=== PATIENT | male | born 1955 | race Caucasian/White ===

== ENCOUNTER 2021-10-23 09:09 | Outpatient (CLI) | payer OTHER, SELFPAY ==
[2021-10-23 09:29] VITALS: BP 157/75; PULSE 76; RESP 18; TEMP 36.6; O2SAT 98; BMI 33.9
[2021-10-23 10:30] VITALS: BP 117/65; PULSE 78; RESP 18; TEMP 36.8; O2SAT 97
[2021-10-23 11:30] VITALS: BP 140/75; PULSE 74; RESP 18; TEMP 36.7; O2SAT 99
== END 2021-10-23 09:10 | disposition home or self-care (01) ==
LOC: OPS 09:10
PROVIDERS: PCP Nurse Practitioner Family; Visit Provider Nurse Practitioner
DX: U07.1 COVID-19 (principal)
CPT/HCPCS: 96365

== ENCOUNTER 2023-05-18 10:39 | Outpatient (CLI) | payer MEDICARE, SELFPAY ==
--- NOTE | 2023-05-18 10:48 | CT_ITS ---
WS: [id number] CT NECK TECHNIQUE: Contrast-enhanced CT of the neck with coronal and sagittal reformatted images. 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 DLP: 264.[address] scans at [facility] use at least one of these dose optimization techniques: automated e xposure control; mA and/or kV adjustment per patient size (includes targeted exams where dose is matc hed to clinical indication); or iterative reconstruction. FINDINGS:Enhancing soft tissue nodule anterior to the midline mandible likely corresponds to the clin ical findings. Soft tissue thickening extends posteriorly into the midline mandibular incisors. Recom mend correlation for odontogenic origin. Soft tissue nodule measures approximately 2.9 CM suspicious for neoplasm. Associated destruction or erosion of the midline alveolar ridge. Enhancement extends in to the genioglossus and sublingual space. Induration in the overlying midline mandibular soft tissues . PET/CT may be helpful for staging. Sclerosis in the inferior mandibular symphysis is indeterminant but may represent additional bony disease. Mastoid air cells are well aerated. Mild mucosal thickening ethmoid air cells. Normal posterior nasop harynx. Normal parapharyngeal fat. Normal palatine tonsils. Normal submandibular glands. Enlarged sub mandibular lymph nodes measuring up to 1.8 x 1.1 cm on the LEFT. Tongue base appears normal. No evidence of supraglottic or glottic mass. Normal subglottic airway. Th yroid gland appears normal. Lung apices are normal. Moderate bilateral carotid bulb calcification. De nse cavernous carotid calcification. Parotid glands are normal. A few slight prominent submental lymp h nodes. Lung apices are well aerated. Moderate spondylitic changes cervical spine. No other enlarged cervical chain lymph nodes. CT/CT neck w con* [id number] IMPRESSION: 1. Enlarged LEFT greater than RIGHT submandibular space lymph nodes measuring 1.8 x 1.1 x 1.8 cm. Similar-appearing enlarged RIGHT submandibular lymph node. 2. A few prominent submental lymph nodes measuring up to 12 mm. 3. Enhancing soft tissue nodule suspicious for neoplasm anterior to the midlin e mandible likely corresponds to the clinical findings. Soft tissue thickening extends posteriorly into the midline mandibular incisors with associated bony d estruction. Enhancement extends into the genioglossus and sublingual space. 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 4. Moderate carotid bulb calcification. 5. Cavernous carotid calcification. 6. No other suspicious findings.
[2023-05-18 11:30] LABS: Blood Urea Nitrogen 14 mg/dL (8-23); Glomerular Filtration Rate 96.7 mL/min (90-130)
[2023-05-18] MEDS: iohexol 350 mg/mL 500 mL Btl (per mL) IV (11:42)
[2023-05-18 12:41] LABS: Basophils # 0.1 10^3/uL (0.0-0.1); Basophils % 0.8 %; Eosinophils # 0.7 10^3/uL (0.0-0.8); Eosinophils % 6.2 %; Hematocrit 37.8 % (42.0-52.0); Hemoglobin 12.6 g/dL (11.7-16.6); Lymphocytes # 1.7 10^3/uL (0.8-4.8); Lymphocytes % 15.1 %; Mean Corpuscular HGB Conc 33.3 g/dL (30.0-36.0); Mean Corpuscular Hemoglobin 27.9 pg (28.0-34.0); Mean Corpuscular Volume 83.6 fl (80-94); Mean Platelet Volume 9.6 fL (7.4-10.4); Monocytes % 8.3 %; Neutrophils # 7.87 10^3/uL (1.8-7.7); Neutrophils % 69.2 %; Nucleated Red Blood Cells % 0 %; Platelet Count 261 10^3/cmm (130-400); Red Blood Count 4.52 10^6/uL (4.1-5.3); Red Cell Distribution Width 13.1 % (12.1-15.1); White Blood Count 11.4 10^3/uL (4.0-10.0)
[2023-05-18 12:42] LABS: Add Urine Microscopic? NO
[2023-05-18 12:52] LABS: Bilirubin Urine Neg (Negative); Blood Urine Neg (Negative); Glucose Urine UA 4+ (Normal); Ketones Urine 1+ (Negative); Leukocyte Esterase Urine Negative (Negative); Nitrate Urine Negative (Negative); Protein Urine Neg (Negative); Urine Appearance Clear (CLEAR); Urine Color Yellow (Yellow); Urobilinogen Urine Norm (Negative); pH Urine 5 (5-7)
[2023-05-18 12:59] LABS: Add Urine Culture? No; RBC Urine 0-4 /hpf (0-2); Squamous Epithelial Cell Urine 0-4 /hpf (0-5); WBC Urine 0-4 /hpf (0-5)
[2023-05-18 13:17] LABS: Alanine Aminotransferase 12 U/L (0-41); Albumin Level 3.8 g/dL (3.5-5.2); Alkaline Phosphatase 82 U/L (40-130); Anion Gap 15.2 (5-19); Aspartate Amino Transferase 12 U/L (0-40); Blood Urea Nitrogen 13 mg/dL (8-23); Calcium 8.6 mg/dL (8.5-10.5); Carbon Dioxide 25 mmol/L (22-29); Chloride 98 mmol/L (98-107); Globulin 2.4 g/dL (1.3-4.6); Glomerular Filtration Rate 96.7 mL/min (90-130); Glucose 145 mg/dL (65-115); Osmolality Calculated 281 mOsm/kg (285-295); Potassium 4.2 mmol/L (3.5-5.1); Sodium 134 mmol/L (136-145); Total Bilirubin 0.4 mg/dL (0.15-1.2); Total Protein 6.2 g/dL (6.6-8.7)
[2023-05-18 13:34] LABS: INR 1.08 (0.8-1.2)
== END 2023-05-18 10:40 | disposition home or self-care (01) ==
PROVIDERS: PCP Nurse Practitioner Family; Visit Provider Specialist
DX: D37.09 Neoplasm of uncertain behavior of other specified sites of the oral cavity (principal); R59.0 Localized enlarged lymph nodes; M27.9 Disease of jaws, unspecified; Z01.89 Encounter for other specified special examinations
CPT/HCPCS: 36415; 70491; 80053; 81001; 82565; 84520; 85025; 85610; Q9967

== ENCOUNTER 2023-05-19 11:22 | Outpatient (CLI) | payer MEDICARE, SELFPAY ==
--- NOTE | 2023-05-19 11:43 | MRR_ITS ---
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 Contrast material: MULTIHANCE; Contrast volume: 20 ml; Contrast route: INTRAVENOUS (IV); COMPARISON: CT neck w con* [id number] 05/18/2023 11:31 AM FINDINGS: Paranasal sinuses: No fluid levels. Orbital cavities: Orbits are normal. Globes are unremarkable. Nasopharynx: Pharynx: Unremarkable. Larynx: Visualized larynx is unremarkable. Salivary glands: See Bones/joints finding. Lymph nodes: There are prominent upper cervical chain lymph nodes again present. Left level 1 submandibular node 1.2 cm short axis on postcontrast image 12 unchanged. Subcentimeter right level 1 lymph node measuring 8 mm short axis on postcontrast image 11. Subcentimeter bilateral level 2 nodes. Soft tissues: See Bones/joints finding. Bones/joints: There is an enhancing soft tissue mass anterior to the midline mandible similar to the comparison CT scan. The mass measures 3.6 cm AP and a craniocaudal dimension of approximately 3.6 cm. The transverse dimension is difficult to accurately define given inflammation of the adjacent gingiva but is approximally 4 cm. Osseous erosion of the mandibular symphysis is again present for example on postcontrast image number 8. The tumor extends through the mandible and is minimally present in the sublingual space anterior to the tongue similar to the comparison CT scan. The tumor appears to extend to the lower lip in its superior aspect which is unchanged. The tumor does not extend to the submandibular space. MR/MR orbit face neck wo/w* [id number] IMPRESSION: Enhancing soft tissue mass anterior to the mandible involving the lower lip is again present consistent with history of malignancy. This has osseous erosion through the mandibular symphysis with extension to the sublingual space again present. Inflammatory changes in the adjacent mandibular buccal gingiva are present making the lateral tumor margins difficult to define radiologically. There is mildly prominent left level 1 adenopathy again present suspicious for possible metastasis. Follow-up with a PET scan would be helpful for further tumor delineation.
--- NOTE | 2023-05-19 12:11 | XR_ITS ---
WS: [id number] EXAMINATION: XR chest 2V* [id number] REASON FOR EXAM: PREPROCEDURAL CARDIOVASCULAR EXAMINATION COMPARISON: None available. ORDER DATE: 05/19/2023 12:15 PM FINDINGS: The lungs are clear of infiltrate. The cardiac and mediastinal outlines are unremarkable. There ar e no significant pleural effusions . No significant abnormalities are noted in the spine or remainder of the bony thorax. XR/XR chest 2V* [id number] IMPRESSION: NO ACUTE PULMONARY CHANGE.
== END 2023-05-19 11:23 | disposition home or self-care (01) ==
PROVIDERS: PCP Nurse Practitioner Family; Visit Provider Specialist
DX: D37.09 Neoplasm of uncertain behavior of other specified sites of the oral cavity (principal); M85.88 Other specified disorders of bone density and structure, other site; R59.0 Localized enlarged lymph nodes; Z01.810 Encounter for preprocedural cardiovascular examination
CPT/HCPCS: 70543; 71046; 93005; A9577

== ENCOUNTER → 2023-06-18 08:31 | Outpatient (BNVA) | payer MEDICARE, SELFPAY | PROVIDERS: PCP Nurse Practitioner Family; Visit Provider Otolaryngology | DX: K13.70 Unspecified lesions of oral mucosa (principal); L98.9 Disorder of the skin and subcutaneous tissue, unspecified; R59.0 Localized enlarged lymph nodes; Z68.36 Body mass index [BMI] 36.0-36.9, adult | CPT/HCPCS: 99205 ==

== ENCOUNTER 2023-06-22 10:26 | Day surgery (SDC) | payer MEDICARE, SELFPAY ==
[2023-06-21 09:01] VITALS: BMI 36.6
[2023-06-22] VITALS (11 sets, daily range): BP systolic 136–173; BP diastolic 70–86; PULSE 75–85; RESP 12–20; TEMP 36.8–36.9; O2SAT 94–98
[2023-06-22] MEDS: sodium chloride 0.9% 1,000 ML 30 ML IV (11:39)
--- NOTE | 2023-06-22 11:51 | W.PM.OPSUD ---
Surgery/Procedure H&P Update DATE OF PROCEDURE: June 22, 2023 DATE H&P PERFORMED: 06/18/23 H&P UPDATE INFORMATION: I have reviewed H&P completed within last 30 days, I have examined patient prior to procedure and No changes to prior documentation CHANGES TO PREVIOUS DOCUMENTATION: no changes PREOP DIAGNOSIS: Exophytic intraoral and chin lesions PRIMARY INDICATION FOR PROCEDURE: Exophytic intraoral and external chin lesions for biopsy PLANNED PROCEDURE: Operation Date: 06/22/23 12:10 Proposed Procedures p [id number] - Direct laryngoscopy with biopsy of intraoral and external skin lesions L98.9,K13.70(Not Applicable) - Lukas Ames MD
--- NOTE | 2023-06-22 11:53 | ANES.PREANE2 ---
Pre-Anesthetic Assessment Height/Weight: Height 1.83 m Weight 122.47 kg Temp Pulse Resp BP Pulse Ox O2 Del Method 98.5 F 75 16 144/77 98 Room Air 06/22/23 11:13 06/22/23 11:13 06/22/23 11:13 06/22/23 11:13 06/22/23 11:13 06/22/23 11:34 Preop Diagnosis: Exophytic intraoral and chin lesions Operation Date: 06/22/23 12:10 Proposed Procedures p [id number] - Direct laryngoscopy with biopsy of intraoral and external skin lesions L98.9,K13.70(Not Applicable) - Lukas Ames MD Familial anesthetic complications: None Was Beta Hemant taken within 24 hours: N/A Was Clonidine taken within 24 hours: N/A Last intake: Intake Last Liquid Date 06/21/23 Last Liquid Time 22:00 Last Solid Date 06/21/23 Last Solid Time 19:00 Social Tobacco (chews) and No alcohol Exam alert, oriented x 3, clear to auscultation bilaterally and regular rate & rhythm Airway Mallampati: Class III Dentition: full CV/HEM Hypertension Metabolic Diabetes Mellitus and Morbid Obesity Anesthetic Plan ASA status: 3 Anesthesia: General Risk of > 500 ml blood loss (7ml/kg in children): No Medications/Allergies Home Medications Medication Instructions Recorded Confirmed Last Taken Type glyburide 5 mg tablet 5 mg PO BID 11/25/20 06/22/23 06/14/23 History lisinopril 20 mg tablet 20 mg PO DAILY 11/25/20 06/21/23 06/21/23 History metformin 1,000 mg tablet 1,000 mg PO BID 11/25/20 06/21/23 06/21/23 History semaglutide 0.25 mg or 0.5 mg (2 mg SUBCUT 11/25/20 06/18/23 06/21/23 History mg/1.5 mL) subcutaneous pen injector aspirin 81 mg capsule 81 mg PO DAILY 10/23/21 06/21/23 06/18/23 History insulin NPH isoph U-100 human 100 40 unit SUBCUT DAILY 06/22/23 06/22/23 06/21/23 18:00 History unit/mL subcutaneous suspension (Novolin N NPH U-100 Insulin isophane) Allergies Allergy/AdvReac Type Severity Reaction Status Date / Time amoxicillin Allergy ADR-Itching Verified 06/22/23 11:02 Current Medications Generic Name Dose Route Start Last Admin Trade Name Flaco PRN Reason Stop Dose Admin Sodium Chloride 1,000 mls @ 30 mls/hr 06/22/23 11:00 06/22/23 11:39 Sodium Chloride 0.9% IV 06/23/23 10:59 30 mls/hr .Q24H BRIANA Administration PFSH Anesthesia Medical History Hypertension Type 2 diabetes mellitus Family History Father Cancer lung cancer Mother CAD (coronary artery disease) Social History Smoking and tobacco status: smoker, details unknown smokeless tobacco Smokeless tobacco user: chewing tobacco Data Anesthesia Cardiac Studies: No Data to Display
[2023-06-22] MEDS: ceFAZolin 3,000 MG in sodium chloride 0.9% (100 ml) 100 ML 200 MG IV (12:00)
[2023-06-22] MEDS: neomycin-poly-bacitracin oint 28 gm 1 APPLIC TOPICAL (12:56)
[2023-06-22] MEDS: lidocaine-epi 2% 1.7mL Cartridge (OR Only) 10 ML XX (12:57)
[2023-06-22] MEDS: EPINEPHrine 1 mg/mL INJ XX (12:59)
--- NOTE | 2023-06-22 12:59 | PM.OP ---
Operative Report Date of procedure: June 22, 2023 Pre-op diagnosis: Preop Diagnosis Exophytic intraoral and chin lesions Post-op diagnosis: Same Post-op findings: Erosive ulcerative and exophytic lesions intraorally in the gingival buccal sulcus from side to side and incorporating the gingival labial sulcus anteriorly. Lesion anteriorly invaded through from the mucous membrane through to the skin causing 3 islands of exophytic growth with necrotic centers. Procedure done: Direct laryngoscopy and multiple intraoral and external chin biopsies. External chin biopsy was closed with suture. Implants: No implants Specimens removed/disposition: Biopsies multiple taken from left gingival buccal sulcus as well as right gingival buccal sulcus and from the central gingival labial sulcus. In addition an excisional biopsy of one of the 3 exophytic islands of growth externally on the chin skin. Pathology: Same Surgeon: Lukas Ames MD Anesthesia: General and Local Estimated blood loss: 20 mL Complications: No complications encountered Findings: Patient has had ulcerative lesions in the gingival labial and gingival buccal sulci bilaterally with exophytic external chin skin growth and 3 separate islands. This has been progressive over several months. Brief History: 68-year-old male patient with progressive ulcerative yet exophytic lesions intraorally in the vestibule region incorporating the left gingival buccal sulcus the central gingival labial sulcus and all of her to the right gingival buccal sulcus. This is adherent to the mandible and growing out into the cheek and lip tissue. Anteriorly it has grown through and through with 3 large islands greater than a centimeter in diameter on the external chin. Patient is being brought to the operating room at this time to undergo multiple biopsies of these lesions for diagnosis and mapping. The procedures risks and complications were explained in detail to the patient and his in the office setting. These risks included bleeding infection numbness scarring swelling bruising recurrence need for additional treatment and the fact that this is a diagnostic procedure and not meant to be a treatment in any way. Anesthetic risks were also discussed. With these things understood informed consent was granted and witnessed. Procedure: Description of procedure: The patient was placed on the operating table in the supine position. Adequate general endotracheal tube anesthesia was obtained. A timeout was accomplished identifying the patient date of plan procedure allergies fire risk and medications given. With all in agreement the procedure continued. The patient did receive Ancef IV for prophylaxis. Direct laryngoscopy was performed with a tooth guard placed on the upper dentition. No other lesions were identified in the posterior oropharynx hypopharynx or laryngeal area. No biopsies were taken during that part of the procedure. Patient with local utilizing a total of 3.4 mL of 2% Xylocaine with 1-100,000 epinephrine was used to infiltrate the areas of the intended intraoral and external chin biopsies. Attention was then turned to the biopsies of the oral lesions. A large cup forcep was used to take multiple biopsies of the gingival buccal mucous membrane and deep lesions. Then right-sided biopsies were taken as well. Then the biopsies from the gingival labial sulcus were taken. Some of these extended into the deep tissue of the chin. After those were taken care of and pledgets of 1-1000 epinephrine were placed to control bleeding attention was turned to the external chin. The left most island of tissue was excised nearly flush with the chin surrounding skin. Hemostasis was attained with cottonoid with epinephrine and then Coblator on coagulation mode and then bipolar and then closing edges together with 2-0 Prolene. All the previously placed cottonoids with 1-1000 epinephrine were removed. The area intraorally was irrigated with saline and suctioned clean. No active bleeding was seen. Then the external lesion that was closed was cleansed and with no active bleeding evident Neosporin ointment was applied. Drapes were removed and tape was removed from the eyes and the patient was returned to anesthesia for wake-up and extubation. The patient tolerated the procedure well had an estimated blood loss of 20 mL and arrived in recovery in stable condition.
--- NOTE | 2023-06-22 13:49 | ANE.PACU2 ---
Inpatient post-anesthesia follow up: Airway intact: Yes Vital signs: Temperature 98.2 F Pulse Rate 83 Respiratory Rate 17 Blood Pressure 166/86 Pulse Oximetry 94 Oxygen Delivery Me thod Room Air Oxygen Flow Rate Fraction of Inspir ed Oxygen Hydration adequate: Yes Nausea and vomiting: No Pain level: 1 Mental status: Baseline
[2023-06-22] MEDS: oxyCODONE-APAP 10-325 mg Tablet 1 TAB PO (13:57)
[2023-06-23 08:06] LABS: Glucose Point of Care 244 mg/dL (70-110)
== END 2023-06-22 14:19 | disposition home or self-care (01) ==
PROVIDERS: PCP Nurse Practitioner Family; Visit Provider Otolaryngology
PROC: 0CJS8ZZ Inspection of Larynx, Via Natural or Artificial Opening Endoscopic (ICD-10-PCS; CPT 11640; principal; 2023-06-22 12:00)
DX: C06.89 Malignant neoplasm of overlapping sites of other parts of mouth (principal); F17.220 Nicotine dependence, chewing tobacco, uncomplicated; I10 Essential (primary) hypertension; E11.9 Type 2 diabetes mellitus without complications; E66.01 Morbid (severe) obesity due to excess calories; Z68.36 Body mass index [BMI] 36.0-36.9, adult; Z79.84 Long term (current) use of oral hypoglycemic drugs
CPT/HCPCS: 11640; 31535; 40810; 36416; 82962; 88304; 88305; 88342; J0171; J0330; J0690; J1100; J2405; J2704; J3010; J3490; J7030

== ENCOUNTER → 2023-06-30 14:31 | Outpatient (BNVA) | payer MEDICARE, SELFPAY | PROVIDERS: PCP Nurse Practitioner Family; Visit Provider Otolaryngology | DX: C06.9 Malignant neoplasm of mouth, unspecified (principal); L98.9 Disorder of the skin and subcutaneous tissue, unspecified; R59.0 Localized enlarged lymph nodes | CPT/HCPCS: 99024 ==

== ENCOUNTER 2024-03-01 11:51 | Inpatient (IN) | payer MEDICARE, SELFPAY ==
[2024-03-01] VITALS (18 sets, daily range): BP systolic 125–161; BP diastolic 55–78; PULSE 74–86; RESP 16–31; TEMP 36.7–37.3; O2SAT 95–99; BMI 32.9
--- NOTE | 2024-03-01 12:44 | CT_ITS ---
WS: [id number] CT HEAD NONCONTRAST HISTORY: weakness TECHNIQUE: Contiguous axial imaging performed through the brain in 2.5 mm imaging. Bone and soft tiss ue windows. Sagittal and coronal reformats reviewed. All CT scans at [facility] use at least one of these dose optimization techniques: automated exposure control; mA and/or kV adjustment per pa tient size (includes targeted exams where dose is matched to clinical indication); or iterative recon struction. DLP: 1251.15 mGy.cm COMPARISON: None available. No acute intracranial hemorrhage, midline shift or mass effect. No atrophy or prior infarcts or herniation. Ventricles: Normal size with no hydrocephalus. Paranasal sinuses: As visualized are clear. Mastoid air cells: Well pneumatized. Calvarium and scalp: Skull is intact with no soft tissue edema or swelling. Heavy calcification in the distal vertebral arteries and the intracranial carotid arteries. CT/CT head wo con* [id number] IMPRESSION: 1. No acute intracranial hemorrhage or edema. 2. No prior infarct. 3. Advanced calcification in the distal vertebral and carotid arteries.
--- NOTE | 2024-03-01 12:44 | XRR_ITS ---
PROCEDURE INFORMATION: Exam: XR Chest Exam date and time: 03/01/2024 12:55 PM Age: 69 years old Clinical indication: Patient HX: C/O weakness TECHNIQUE: Imaging protocol: Radiologic exam of the chest. Views: 1 view. COMPARISON: CR XR chest 2V* [id number] 05/19/2023 12:14 PM FINDINGS: Lungs: Unremarkable. No consolidation. Pleural spaces: Unremarkable. No pleural effusion. No pneumothorax. Heart/Mediastinum: Unremarkable. No cardiomegaly. Bones/joints: Mild scoliosis with mild and moderate multilevel spondylosis. Partial thoracic spine ankylosis. XR/XR chest 1V portable [id number] IMPRESSION: No acute disease.
--- NOTE | 2024-03-01 12:45 | CT_ITS ---
WS: [id number] CT NECK WITH CONTRAST HISTORY: jaw pain TECHNIQUE: Contiguous 2 mm axial images are performed through the neck with intravenous contrast. Sag ittal and coronal reformats are also submitted. All CT scans at [facility] use at least one o f these dose optimization techniques: automated exposure control; mA and/or kV adjustment per patient size (includes targeted exams where dose is matched to clinical indication); or iterative reconstruc tion. CONTRAST: CONTRAST: Omnipaque 350; 100 mL IV. DLP: 1251.15 mGy.cm COMPARISON: 07/22/2023 Reidentified is a lobulated soft tissue mass with mild enhancement centered over the mental symphysis with extension to the mandible and surrounding several of the teeth in the mandible. There is simila r to prior studies. There is no focal enhancing mass and no obvious progression since the prior study of 07/22/2023. There are small level 1 and level 2 lymph nodes which have decreased in size since 06/26. These lymph nodes were positive on the PET/CT. There are no enlarging lymph node groups. Tongue base is negative. No laryngeal mass or obstruction. No new or enlarging cervical chain lymph n odes. Lung apices are clear. Negative thyroid. CT/CT neck w con* [id number] IMPRESSION: Reidentified is a soft tissue mass centered within the mandibular symphysis wit h extension to encase several of the incisors. Very similar in appearance to th e prior CT of 07/22/2023. No obvious progression. Level 2 and level 1 lymph nodes have decreased in size since the prior PET/CT o f 07/22/2023. There are no new or enlarging lymph nodes. No compromise of the ai rway.
--- NOTE | 2024-03-01 12:46 | ED_ITS ---
HPI - Weakness 2 General: Chief complaint: Weakness Stated complaint: weakness Time Seen by Provider: 03/01/24 12:39 Source: patient Mode of arrival: ambulatory Limitations: no limitations History of Present Illness: 69-year-old male states over the last 10 days he has been having increased fatigue and weakness he said he had subjective fevers along with chills had some vomiting as well. He denies any pain anywhere denies any headache he states that he had seen his PCP on Wednesday started on antibiotics but did not have any definite source of infection he states that he is gradually gotten weaker and is having a hard time getting out of bed due to his weakness Associated symptoms: Reports chills; Denies chest pain, dysuria, headache(s), nausea or vomiting Review of Systems 2 Const: Reports: chills, fatigue and malaise; Denies: body aches or change in appetite Eyes: Denies: blurry vision or eye discomfort ENMT: Denies: throat pain or dental pain Card: Denies: chest pain Resp: Denies: dyspnea GI: Denies: abdominal pain, nausea, vomiting or diarrhea : Denies: dysuria Musc: Denies: neck pain or back pain Skin/Breast: Denies: rash Neuro: Denies: headache(s) PFSH ED 2 PFSH: Medical History Type 2 diabetes mellitus Hypertension Family History Father Cancer lung cancer Mother CAD (coronary artery disease) Social History Smoking and tobacco/nicotine status: tobacco/nicotine user, details unknown smokeless tobacco Smokeless tobacco user: chewing tobacco Physical Exam 2 Const: COMMON NORMALS: no acute distress, patient oriented x3 and healthy appearing HENMT: COMMON NORMALS: normocephalic and atraumatic HEAD & SCALP: n ormocephalic and atraumatic Eye: COMMON NORMALS: Equal, round and reactive pupils present and EOMs intact bilaterally PUPIL: Yes Equal, round and reactive pupils present Neck/C-Spine: COMMON NORMALS: full ROM and supple Chest: COMMONS NORMALS: normal inspection of the chest and normal palpation of entire chest wall Resp: COMMON NORMALS: normal respiratory effort, No retractions, No use of accessory muscles and clear to auscultation bilaterally AUSCULTATION: clear to auscultation bilaterally Cardio: COMMON NORMALS: regular rate, regular rhythm and No murmurs present (Cardio) RATE: regular rate RHYTHM: regular rhythm GI: COMMON NORMALS: Normal to inspection, nondistended, normoactive bowel sounds present, Soft to palpation, non-tender and no masses PALPATION: Yes Soft to palpation Extremity: COMMON NORMALS: normal to inspection and full ROM Neuro: COMMON NORMALS: patient oriented x3, moves all extremities and no focal motor deficits Psych: COMMON NORMALS: mental status grossly normal, Normal thought process present and cooperative THOUGHT PROCESS: Normal thought process present Skin: COMMON NORMALS: no rashes or lesions noted and no wounds GENERAL SKIN EXAM: no rashes or lesions noted Course 2 Vital Signs: Vital signs: Vital Signs Temperature 98.1 F 03/01/24 11:59 Pulse Rate 79 03/01/24 14:59 Respiratory Rate 18 03/01/24 11:59 Blood Pressure 144/56 03/01/24 14:59 Pulse Oximetry 98 03/01/24 14:59 Oxygen Delivery Me thod Room Air 03/01/24 14:59 MDM - Weakness Medical Decision Making Patient presents here with generalized weakness he does have a leukocytosis hyponatremia here no definite source for his leukocytosis here will start antibiotics and get blood cultures lactates normal vitals here been normal spoke to the hospitalist will admit at this time. Medical Records I reviewed the patient's medical records. Lab Data I reviewed the patient's lab results. 03/01/24 13:10 03/01/24 13:10 Radiology Impressions Chest X-Ray 03/01/24 12:44 IMPRESSION: No acute disease. Head CT 03/01/24 12:44 IMPRESSION: 1. No acute intracranial hemorrhage or edema. 2. No prior infarct. 3. Advanced calcification in the distal vertebral and carotid arteries. Neck CT 03/01/24 12:45 IMPRESSION: Reidentified is a soft tissue mass centered within the mandibular symphysis with extension to encase several of the incisors. Very similar in appearance to the prior CT of 07/22/2023. No obvious progression. Level 2 and level 1 lymph nodes have decreased in size since the prior PET/CT of 07/22/2023. There are no new or enlarging lymph nodes. No compromise of the airway. Laboratory Results WBC 28.07 10^3/uL (3.29-11.43) H 03/01/24 13:10 RBC 4.27 10^6/uL (3.85-5.65) 03/01/24 13:10 Hgb 12.20 g/dL (11.27-16.99) 03/01/24 13:10 Hct 36.4 % (37-53) L 03/01/24 13:10 MCV 85.2 fl (82-101) 03/01/24 13:10 MCH 28.6 pg (27-33) 03/01/24 13:10 MCHC 33.5 g/dL (30-55) 03/01/24 13:10 RDW 13.1 % (12.1-15.1) 03/01/24 13:10 Plt Count 454 10^3/cmm (157-399) H 03/01/24 13:10 MPV 9.3 fL (7.4-10.4) 03/01/24 13:10 Neut % (Auto) 84.6 % 03/01/24 13:10 Lymph % (Auto) 3.7 % 03/01/24 13:10 [place] % (Auto) 9.5 % 03/01/24 13:10 Eos % (Auto) 0.0 % 03/01/24 13:10 Baso % (Auto) 0.3 % 03/01/24 13:10 Neut # (Auto) 23.72 10^3/uL (1.8-7.7) H 03/01/24 13:10 Lymph # (Auto) 1.1 10^3/uL (0.8-4.8) 03/01/24 13:10 [place] # (Auto) 2.7 10^3/uL (0.2-0.9) H 03/01/24 13:10 Eos # (Auto) 0.0 10^3/uL (0.0-0.8) 03/01/24 13:10 Baso # (Auto) 0.1 10^3/uL (0.0-0.1) 03/01/24 13:10 Nucleated RBC % (auto) 0 % 03/01/24 13:10 Nucleated RBCs # 0.0 /100WBC 03/01/24 13:10 PT 17.60 SECONDS (12.1-14.9) H 03/01/24 13:10 INR 1.40 (0.8-1.2) H 03/01/24 13:10 Sodium 126 mmol/L (136-145) L 03/01/24 13:10 Potassium 4.2 mmol/L (3.5-5.1) 03/01/24 13:10 Chloride 87 mmol/L (98-107) L 03/01/24 13:10 Carbon Dioxide 16 mmol/L (22-29) L 03/01/24 13:10 Anion Gap 27.2 (5-19) H 03/01/24 13:10 BUN 30 mg/dL (8-23) H 03/01/24 13:10 Creatinine 1.0 mg/dL (0.7-1.2) 03/01/24 13:10 GFR Calculation 74.5 mL/min (90-130) L 03/01/24 13:10 Glucose 397 mg/dL (65-115) H 03/01/24 13:10 POC Glucose 371 mg/dL (70-110) H 03/01/24 13:22 Calculated Osmolality 285 mOsm/kg (285-295) 03/01/24 13:10 Lactic Acid 1.6 mmol/L (0.5-2.2) 03/01/24 13:10 Calcium 9.1 mg/dL (8.5-10.5) 03/01/24 13:10 Magnesium 2.3 mg/dL (1.7-2.3) 03/01/24 13:10 Total Bilirubin 0.7 mg/dL (0.15-1.2) 03/01/24 13:10 AST 13 U/L (0-40) 03/01/24 13:10 ALT 9 U/L (0-41) 03/01/24 13:10 Alkaline Phosphatase 188 U/L (40-130) H 03/01/24 13:10 Total Protein 7.6 g/dL (6.6-8.7) 03/01/24 13:10 Albumin 3.1 g/dL (3.5-5.2) L 03/01/24 13:10 Globulin 4.5 g/dL (1.3-4.6) 03/01/24 13:10 Lipase 7 U/L (13-60) L 03/01/24 13:10 TSH 3.40 uIU/mL (0.27-4.20) 03/01/24 13:10 Urine Color Yellow (Yellow) 03/01/24 13:56 Urine Appearance Clear (CLEAR) 03/01/24 13:56 Urine pH 5 (5-7) 03/01/24 13:56 Ur Specific [place] 1.015 (1.005-1.030) 03/01/24 13:56 Urine Protein Neg (Negative) 03/01/24 13:56 Urine Glucose (UA) 4+ (Normal) H 03/01/24 13:56 Urine Ketones 2+ (Negative) H 03/01/24 13:56 Urine Blood Neg (Negative) 03/01/24 13:56 Urine Nitrate Negative (Negative) 03/01/24 13:56 Urine Bilirubin Neg (Negative) 03/01/24 13:56 Urine Urobilinogen Neg mg/dL (Negative) 03/01/24 13:56 Ur Leukocyte Esterase Negative (Negative) 03/01/24 13:56 All radiology interpretation(s) finalized by discharge EKG Data EKG 1: I personally reviewed and interpreted this EKG as follows: EKG interpretation date: 03/01/24 EKG interpretation time: 13:12 Interpretation: nsr hr [address] or t wave abnormalities qrs 100 qtc 421 Discharge Plan Discharge Patient Disposition: Admitted As Inpatient Clinical Impression: Hyponatremia, Leukocytosis, Weakness Condition: Stable Prescriptions: No Action glyburide 5 mg tablet 5 mg PO BID metformin 1,000 mg tablet 500 mg PO BID lisinopril 20 mg tablet 20 mg PO DAILY aspirin 81 mg Capsule 81 mg PO DAILY Hold Instructions: Resume on 06/25/23. amoxicillin-pot clavulanate 875-125 mg tablet 1 tab PO BID Novolin N NPH U-100 Insulin 100 unit/mL suspension 45 unit SUBCUT DAILY Referrals: Shannon Calle FNP [Primary Care Provider] - Coding Level of Care Code ED Health Care Attorney for Chg Sherita
--- NOTE | 2024-03-01 13:08 | PC.PHAR ---
PT STATES LAST TOOK MEDICATIONS WEDNESDAY MORNING-UNABLE TO KEEP ANYTHING DOWN SINCE THAT TIME.
--- NOTE | 2024-03-01 13:12 | ECG_ITS ---
[facility] Test Date: 2024-03-01 Pat Name: Santo Smith Department: Room: Gender: Male [employer] Attendant: : 1955 Requested By: Donnell Saab Order Number: [id number] Twan MD: Lupillo Erickson M.D. Measurements Intervals [place] Rate: 77 P: 42 WV: 168 QRS: 5 QRSD: 100 T: 62 QT: 389 QTc: 442 Interpretive Statements SINUS RHYTHM NONSPECIFIC ST & T-WAVE ABNORMALITY Compared to ECG 05/19/2023 14:11:15 T-wave abnormality now present Electronically Signed On 03-01-2024 20:02:29 CDT by Lupillo Erickson M.D. [id number]
[2024-03-01 13:27] LABS: Basophils # 0.1 10^3/uL (0.0-0.1); Basophils % 0.3 %; Hematocrit 36.4 % (37-53); Lymphocytes # 1.1 10^3/uL (0.8-4.8); Lymphocytes % 3.7 %; Mean Corpuscular HGB Conc 33.5 g/dL (30-55); Mean Corpuscular Hemoglobin 28.6 pg (27-33); Mean Corpuscular Volume 85.2 fl (82-101); Mean Platelet Volume 9.3 fL (7.4-10.4); Monocytes # 2.7 10^3/uL (0.2-0.9); Monocytes % 9.5 %; Neutrophils # 23.72 10^3/uL (1.8-7.7); Neutrophils % 84.6 %; Nucleated Red Blood Cells % 0 %; Platelet Count 454 10^3/cmm (157-399); Red Blood Count 4.27 10^6/uL (3.85-5.65); Red Cell Distribution Width 13.1 % (12.1-15.1); White Blood Count 28.07 10^3/uL (3.29-11.43)
--- NOTE | 2024-03-01 13:31 | CT_ITS ---
WS: [id number] CT ABDOMEN AND PELVIS WITH CONTRAST HISTORY: vomiting TECHNIQUE: Imaging performed of the abdomen and pelvis with IV contrast. Single phase imaging of the abdomen. Coronal and sagittal reformats are submitted. All CT scans at [facility] use at [address] one of these dose optimization techniques: automated exposure control; mA and/or kV adjustment per patient size (includes targeted exams where dose is matched to clinical indication); or iterative re construction. IV CONTRAST: Omnipaque 350; 100 mL IV. Oral contrast: No DLP: 2252.56 mGy.cm COMPARISON: 07/22/2023 Lower thorax: Gynecomastia. Mild soft tissue edema and anasarca. Heart is normal size. No hiatal sid ia. Liver/biliary system: Normal size with no intrahepatic dilatation. Gallbladder: Normal. No gallstones or wall thickening. No pericholecystic fluid. Pancreas: Mild diffuse pancreatic atrophy. There is a solid soft tissue mildly enhancing mass insepar able from the distal pancreas extending inferiorly and posteriorly. Mass measures 3.7 x 3.2 cm. Mass is inseparable from the tail the pancreas. There is a fat plane between the kidney and this mass. Mas s was slightly avid on the PET CT image but very similar attenuation as the adjacent spleen. This mas s was present on 07/22/2023 and not increased in size. Spleen: Normal size spleen. No mass or infarct. Adrenal glands: Normal. Right kidney: No solid mass. Several small cortical cysts. No obstruction. Mild perinephric stranding . Left kidney: No obstruction. Cortical cyst. No solid mass. No perinephric stranding. Aorta: Mild atherosclerosis with no aneurysm. Lymphadenopathy: None. Free fluid: None. GI tract: Nondistended stomach. No small bowel obstruction. Diffuse constipation. Normal appendix. Abdominal wall: Unremarkable abdominal wall. No hernia. Pelvis: Enlarged RIGHT inguinal lymph nodes measuring up to 2.0 cm. There are several hyperemic enlar ged lymph nodes. Additional RIGHT inguinal lymph node 2.3 cm. Negative urinary bladder. Bones: Unremarkable. CT/CT abdomen pelvis w con* [id number] IMPRESSION: 1. Bilateral perinephric stranding. There is no renal obstruction or abscess. Correlate for pyelonephritis. 2. New RIGHT inguinal lymph nodes. These lymph nodes are enlarged and hyperemi c. New since the PET/CT of 07/22/2023. Suspicious for neoplastic versus reactive adenopathy. 3. No metastatic disease to the liver. 4. There is a soft tissue mass in the LEFT upper abdomen which is similar atte nuation and enhancement of the adjacent spleen. This may be a large splenule. T his is inseparable from the pancreas. No interval increase in size since 023. 5. Soft tissue anasarca. 6. Bilateral renal cysts. 7. Constipation. Notified Donnell Saab MD at 03/01/2024 3:34 PM.
[2024-03-01 13:46] LABS: Lactic Sepsis W/Reflex 1.6 mmol/L (0.5-2.2)
[2024-03-01 13:56] LABS: Alanine Aminotransferase 9 U/L (0-41); Albumin Level 3.1 g/dL (3.5-5.2); Alkaline Phosphatase 188 U/L (40-130); Anion Gap 27.2 (5-19); Aspartate Amino Transferase 13 U/L (0-40); Blood Urea Nitrogen 30 mg/dL (8-23); Calcium 9.1 mg/dL (8.5-10.5); Carbon Dioxide 16 mmol/L (22-29); Chloride 87 mmol/L (98-107); Creatinine Clr Calc Pharmacy 93.1959; Globulin 4.5 g/dL (1.3-4.6); Glomerular Filtration Rate 74.5 mL/min (90-130); Glucose 397 mg/dL (65-115); Lipase 7 U/L (13-60); Magnesium 2.3 mg/dL (1.7-2.3); Osmolality Calculated 285 mOsm/kg (285-295); Potassium 4.2 mmol/L (3.5-5.1); Sodium 126 mmol/L (136-145); Total Bilirubin 0.7 mg/dL (0.15-1.2); Total Protein 7.6 g/dL (6.6-8.7)
[2024-03-01 13:58] LABS: Glucose Point of Care 371 mg/dL (70-110)
[2024-03-01 13:59] LABS: Add Urine Microscopic? NO; Charge for UA Resulting for Rev
[2024-03-01 14:05] LABS: Bilirubin Urine Neg (Negative); Blood Urine Neg (Negative); Glucose Urine UA 4+ (Normal); Ketones Urine 2+ (Negative); Leukocyte Esterase Urine Negative (Negative); Nitrate Urine Negative (Negative); Protein Urine Neg (Negative); Specific Gravity, Urine 1.015 (1.005-1.030); Urine Appearance Clear (CLEAR); Urine Color Yellow (Yellow); Urobilinogen Urine Neg (Negative); pH Urine 5 (5-7)
[2024-03-01] MEDS: iohexol 350 mg/mL 500 mL Btl (per mL) IV ×2 (14:54→14:55)
[2024-03-01] MEDS: piperacillin-tazobactam 3.375 GM in sodium chloride 0.9% (plus) 50 ML IV (14:56)
[2024-03-01] MEDS: sodium chloride 0.9% 1,000 ML 999 ML IV ×2 (14:57→16:24)
[2024-03-01] MEDS: vancomycin 1,000 MG in sodium chloride 0.9% 250 ML 250 MG IV (15:40)
--- NOTE | 2024-03-01 16:04 | XRR_ITS ---
PROCEDURE INFORMATION: Exam: XR Right Foot Exam date and time: 03/01/2024 4:26 PM Age: 69 years old Clinical indication: Patient HX: Necrotic toes and ulcers; Foul smell; Increased fatigue and [id number]-[id number]; Additional info: Necrosis TECHNIQUE: Imaging protocol: Radiologic exam of the right foot. Views: 3 or more views. COMPARISON: CT angio abd aorta runof [id number] 07/22/2023 3:37 PM FINDINGS: Bones/joints: Mottled bones of the right 2nd toe could be osteomyelitis. Dorsal subluxation of all proximal phalanges. Moderate right inferior calcaneal spur and moderate right posterior calcaneal enthesophyte. Otherwise, unremarkable. Soft tissues: Gas in the soft tissues suggests soft tissue infection. Otherwise, unremarkable. Vasculature: Arterial calcification. XR/XR foot RT min 3V* [id number] IMPRESSION: 1. Possible osteomyelitis of the 2nd toe. Probable extensive soft tissue infection. Consider MRI to evaluate this further. 2. Additional details as above.
--- NOTE | 2024-03-01 16:07 | PC.NURSE ---
PATIENT CHANGED INTO GOWN AND TOOK BOOTS OFF WHEN I NOTICED A BLOODY RED AND YELLOW SATURATED PORTION ON HIS SOCK. REMOVED SOCK AND UPON ASSESSMENT, PATIENT HAS PINK, RED, AND BLACKENED FOOT WITH TWO BLACK TOES. PATIENT STATES THIS JUST HAPPENED TODAY . STATES THAT PATIENT HAS NOT TAKEN A SHOWER IN A WEEK AND A HALF SO SHE IS UNSURE WHEN THIS BEGAN. PATIENT IS UNSURE WHEN HIS FOOT BECAME INFECTED OR STARTED CHANGING COLORS.
--- NOTE | 2024-03-01 16:10 | CTR_ITS ---
PROCEDURE INFORMATION: Exam: CT Right Lower Extremity Without Contrast; Lower Leg Exam date and time: 03/01/2024 4:36 PM Age: 69 years old Clinical indication: Other: Necrotic foot TECHNIQUE: Imaging protocol: CT of the right lower extremity without contrast was performed. Exam focused on the lower leg. Radiation optimization: All CT scans at this facility use at least one of these dose optimization techniques: automated exposure control; mA and/or kV adjustment per patient size (includes targeted exams where dose is matched to clinical indication); or iterative reconstruction. COMPARISON: CT angio abd aorta runof [id number] 07/22/2023 3:37 PM RADIATION DOSE METRICS: Total DLP (mGy-cm): 385 FINDINGS: Bones/joints: Tibia and fibula are intact. There is chronic avulsive injury of the anterior aspect of the lateral malleolus at the syndesmotic attachment compatible with remote syndesmotic injury. Soft tissue air extends into the region of the 2nd toe metatarsophalangeal joint concerning for joint involvement. Motion degradation limits evaluation for subtle erosive change. There is intraosseous air within the proximal phalanx 2nd toe suggestive of gangrene. 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 Soft tissues: Soft tissue ulceration of the plantar aspect of the forefoot subjacent to the 2nd toe. Joint involvement would be difficult to exclude. No discrete fluid collection to suggest abscess. Soft tissue gas extends proximally to the volar aspect of the hindfoot/ankle. CT/CT lower leg RT wo con* [id number] IMPRESSION: 1. Soft tissue ulceration of the plantar aspect of the forefoot subjacent to the 2nd toe with gas-forming infection and intraosseous air within the proximal phalanx suggestive of gangrene/osteomyelitis. There is possible involvement of the 2nd metatarsophalangeal joint. MRI of the right foot is recommended.
[2024-03-01 16:50] LABS: Erythrocyte Sedimentation Rate 86 mm/hr (0-10)
--- NOTE | 2024-03-01 16:59 | W.ED.WEAKNES ---
HPI - Weakness General: Chief complaint: Weakness Stated complaint: weakness Time Seen by Provider: 03/01/24 12:39 Source: patient Mode of arrival: ambulatory Limitations: no limitations PFSH ED PFSH: Medical History Type 2 diabetes mellitus Hypertension Family History Father Cancer lung cancer Mother CAD (coronary artery disease) Social History Smoking and tobacco/nicotine status: tobacco/nicotine user, details unknown smokeless tobacco Smokeless tobacco user: chewing tobacco Course Vital Signs: Vital signs: Vital Signs Temperature 98.1 F 03/01/24 11:59 Pulse Rate 79 03/01/24 14:59 Respiratory Rate 18 03/01/24 11:59 Blood Pressure 144/56 03/01/24 14:59 Pulse Oximetry 98 03/01/24 14:59 Oxygen Delivery Me thod Room Air 03/01/24 14:59 MDM - Weakness Lab Data 03/01/24 13:10 03/01/24 13:10 Radiology Impressions Chest X-Ray 03/01/24 12:44 IMPRESSION: No acute disease. Head CT 03/01/24 12:44 IMPRESSION: 1. No acute intracranial hemorrhage or edema. 2. No prior infarct. 3. Advanced calcification in the distal vertebral and carotid arteries. Neck CT 03/01/24 12:45 IMPRESSION: Reidentified is a soft tissue mass centered within the mandibular symphysis with extension to encase several of the incisors. Very similar in appearance to the prior CT of 07/22/2023. No obvious progression. Level 2 and level 1 lymph nodes have decreased in size since the prior PET/CT of 07/22/2023. There are no new or enlarging lymph nodes. No compromise of the airway. Abdomen/Pelvis CT 03/01/24 13:31 IMPRESSION: 1. Bilateral perinephric stranding. There is no renal obstruction or abscess. Correlate for pyelonephritis. 2. New RIGHT inguinal lymph nodes. These lymph nodes are enlarged and hyperemic. New since the PET/CT of 07/22/2023. Suspicious for neoplastic versus reactive adenopathy. 3. No metastatic disease to the liver. 4. There is a soft tissue mass in the LEFT upper abdomen which is similar attenuation and enhancement of the adjacent spleen. This may be a large splenule. This is inseparable from the pancreas. No interval increase in size since 07/22/2023. 5. Soft tissue anasarca. 6. Bilateral renal cysts. 7. Constipation. Notified Donnell Saab MD at 03/01/2024 3:34 PM. Foot X-Ray 03/01/24 16:04 IMPRESSION: 1. Possible osteomyelitis of the 2nd toe. Probable extensive soft tissue infection. Consider MRI to evaluate this further. 2. Additional details as above. Laboratory Results WBC 28.07 10^3/uL (3.29-11.43) H 03/01/24 13:10 RBC 4.27 10^6/uL (3.85-5.65) 03/01/24 13:10 Hgb 12.20 g/dL (11.27-16.99) 03/01/24 13:10 Hct 36.4 % (37-53) L 03/01/24 13:10 MCV 85.2 fl (82-101) 03/01/24 13:10 MCH 28.6 pg (27-33) 03/01/24 13:10 MCHC 33.5 g/dL (30-55) 03/01/24 13:10 RDW 13.1 % (12.1-15.1) 03/01/24 13:10 Plt Count 454 10^3/cmm (157-399) H 03/01/24 13:10 MPV 9.3 fL (7.4-10.4) 03/01/24 13:10 Neut % (Auto) 84.6 % 03/01/24 13:10 Lymph % (Auto) 3.7 % 03/01/24 13:10 [place] % (Auto) 9.5 % 03/01/24 13:10 Eos % (Auto) 0.0 % 03/01/24 13:10 Baso % (Auto) 0.3 % 03/01/24 13:10 Neut # (Auto) 23.72 10^3/uL (1.8-7.7) H 03/01/24 13:10 Lymph # (Auto) 1.1 10^3/uL (0.8-4.8) 03/01/24 13:10 [place] # (Auto) 2.7 10^3/uL (0.2-0.9) H 03/01/24 13:10 Eos # (Auto) 0.0 10^3/uL (0.0-0.8) 03/01/24 13:10 Baso # (Auto) 0.1 10^3/uL (0.0-0.1) 03/01/24 13:10 Nucleated RBC % (auto) 0 % 03/01/24 13:10 Nucleated RBCs # 0.0 /100WBC 03/01/24 13:10 ESR 86 mm/hr (0-10) H 03/01/24 13:10 PT 17.60 SECONDS (12.1-14.9) H 03/01/24 13:10 INR 1.40 (0.8-1.2) H 03/01/24 13:10 Sodium 126 mmol/L (136-145) L 03/01/24 13:10 Potassium 4.2 mmol/L (3.5-5.1) 03/01/24 13:10 Chloride 87 mmol/L (98-107) L 03/01/24 13:10 Carbon Dioxide 16 mmol/L (22-29) L 03/01/24 13:10 Anion Gap 27.2 (5-19) H 03/01/24 13:10 BUN 30 mg/dL (8-23) H 03/01/24 13:10 Creatinine 1.0 mg/dL (0.7-1.2) 03/01/24 13:10 GFR Calculation 74.5 mL/min (90-130) L 03/01/24 13:10 Glucose 397 mg/dL (65-115) H 03/01/24 13:10 POC Glucose 371 mg/dL (70-110) H 03/01/24 13:22 Calculated Osmolality 285 mOsm/kg (285-295) 03/01/24 13:10 Lactic Acid 1.6 mmol/L (0.5-2.2) 03/01/24 13:10 Calcium 9.1 mg/dL (8.5-10.5) 03/01/24 13:10 Magnesium 2.3 mg/dL (1.7-2.3) 03/01/24 13:10 Total Bilirubin 0.7 mg/dL (0.15-1.2) 03/01/24 13:10 AST 13 U/L (0-40) 03/01/24 13:10 ALT 9 U/L (0-41) 03/01/24 13:10 Alkaline Phosphatase 188 U/L (40-130) H 03/01/24 13:10 Total Protein 7.6 g/dL (6.6-8.7) 03/01/24 13:10 Albumin 3.1 g/dL (3.5-5.2) L 03/01/24 13:10 Globulin 4.5 g/dL (1.3-4.6) 03/01/24 13:10 Lipase 7 U/L (13-60) L 03/01/24 13:10 TSH 3.40 uIU/mL (0.27-4.20) 03/01/24 13:10 Urine Color Yellow (Yellow) 03/01/24 13:56 Urine Appearance Clear (CLEAR) 03/01/24 13:56 Urine pH 5 (5-7) 03/01/24 13:56 Ur Specific [place] 1.015 (1.005-1.030) 03/01/24 13:56 Urine Protein Neg (Negative) 03/01/24 13:56 Urine Glucose (UA) 4+ (Normal) H 03/01/24 13:56 Urine Ketones 2+ (Negative) H 03/01/24 13:56 Urine Blood Neg (Negative) 03/01/24 13:56 Urine Nitrate Negative (Negative) 03/01/24 13:56 Urine Bilirubin Neg (Negative) 03/01/24 13:56 Urine Urobilinogen Neg mg/dL (Negative) 03/01/24 13:56 Ur Leukocyte Esterase Negative (Negative) 03/01/24 13:56 Discharge Plan Discharge Patient Disposition: Admitted As Inpatient Clinical Impression: Hyponatremia, Leukocytosis, Weakness, Cellulitis of foot, right Condition: Stable Coding Level of Care Code ED Drupal Php Developer for Liseth Magallon
--- NOTE | 2024-03-01 17:05 | PM.CONSULT ---
Providers/Reason For Consult Consulting Physician/Specialty*: Yuli Marroquin.P.MCristiano/podiatry Reason for Consult*: Right foot infection Primary Care Provider: KULWANT Velazquez History of Present Illness History of Present Illness Santo Smith is a 69 year old male who presented to the emergency department today 03/01/2024 with symptoms of abdominal pain, generalized weakness and malaise with loss of appetite. Workup in the emergency department revealed a necrotizing soft tissue infection of the right lower extremity. Podiatry was consulted to evaluate and provide further recommendations. According to the patient he did not notice that this was there until when they removed his sock in the emergency department today. He has been feeling sick since last weekend during a camping trip. According to patient and patient's significant other this was not present the last time to the patient bathed approximately 1 and half weeks ago. Patient endorses fever, chills, nausea, loss of appetite. Review of Systems General: Reports: 10 or more systems reviewed and unremarkable except in HPI and below Const: Denies: fever(s), chills, body aches or change in appetite Eyes: Denies: change in vision or blurry vision Card: Denies: chest pain, palpitations or irregular heart rhythm Resp: Denies: dyspnea GI: Denies: abdominal pain, nausea, vomiting or diarrhea Musc: Reports: joint stiffness Skin/Breast: Reports: non-healing lesions and lesions Neuro: Reports: numbness in extremities Medications/Allergies Home Medications Medication Instructions Recorded Confirmed Last Taken Type glyburide 5 mg tablet 5 mg PO BID 11/25/20 03/01/24 02/27/24 History lisinopril 20 mg tablet 20 mg PO DAILY 11/25/20 03/01/24 02/27/24 History metformin 1,000 mg tablet 500 mg PO BID 11/25/20 03/01/24 02/27/24 History aspirin 81 mg capsule 81 mg PO DAILY 10/23/21 03/01/24 02/27/24 History insulin NPH isoph U-100 human 100 45 unit SUBCUT DAILY 06/22/23 03/01/24 02/27/24 History unit/mL subcutaneous suspension (Novolin N NPH U-100 Insulin isophane) amoxicillin 875 mg-potassium 1 tab PO BID 03/01/24 03/01/24 02/27/24 History clavulanate 125 mg tablet Allergies Allergy/AdvReac Type Severity Reaction Status Date / Time No Known Allergies Allergy Verified 03/01/24 12:05 PFSH Acute PFSH: Medical History (Updated 03/01/24 @ 17:14 by Zbigniew Bridges DPM) Type 2 diabetes mellitus Hypertension Family History Father Cancer lung cancer Mother CAD (coronary artery disease) Social History Smoking and tobacco/nicotine status: tobacco/nicotine user, details unknown smokeless tobacco Smokeless tobacco user: chewing tobacco Vitals/I&O/Wt Last Vital Signs Temp 98.1 F 03/01/24 11:59 Pulse 79 03/01/24 14:59 Resp 18 03/01/24 11:59 BP 144/56 03/01/24 14:59 Pulse Ox 98 03/01/24 14:59 O2 Del Method Room Air 03/01/24 14:59 03/01/24 03/01/24 03/01/24 06:59 14:59 22:59 Intake Total 1050 / 1050 Balance 1050 / 1050 Weight last 48 hrs Weight 250 lb Physical Exam Narrative: BELOW IS A FOCUSED LOWER EXTREMITY EXAM GENERAL: A&O x 3 VASCULAR: DP/PT pulses right foot weakly monophasic to right lower extremity. Significant edema to right foot and ankle DERMATOLOGICAL: Full-thickness ulceration to plantar aspect of right second metatarsal head with significant necrosis surrounding the wound enveloping the second and third digits and extending onto the dorsum of the foot to the level of the midfoot. Hemorrhagic blister formation with erythema extending proximally above the level of the ankle joint and lymphangitic streaking extending up to the level of the knee MUSCULOSKELETAL: No pain with palpation of right foot secondary to diabetic peripheral neuropathy NEUROLOGICAL: Neurological sensation is diminished to the level of the ankle secondary to diabetic peripheral neuropathy IMAGING: Three-view x-rays of right foot taken in the emergency department show extensive soft tissue gas extending from the forefoot to the level of the ankle joint. Atherosclerotic changes visualized as well. CT scan of the right lower extremity shows extensive soft tissue gas dorsally extending up and past the level of the ankle joint. Data 03/01/24 13:10 03/01/24 13:10 Micro: Microbiology 03/01/24 13:18 Blood Culture - Preliminary Blood SPECIMEN COLLECTED 03/01/24 13:10 Blood Culture - Preliminary Blood SPECIMEN COLLECTED A&P Assessment and plan (1) Gas gangrene: (2) Necrotizing soft tissue infection: (3) Type 2 diabetes mellitus: Plan -Necrotizing soft tissue infection right lower extremity with severe underlying PAD -LRINEC score 10 -Labs and vitals reviewed -WBC 28.07 -ESR 86 -CRP pending -HR 79 -RR 18 -Tmax 98.1 -Cultures pending -Abx Vanco/Zosyn -Diet: N.p.o. -Patient has severe PAD to the right lower extremity. This complicates necrotizing soft tissue infection of right lower extremity. I discussed with patient that this is beyond scope of practice for podiatry and that he will need a more proximal amputation. Patient verbalized understanding to this and is amenable to amputation. Case was discussed with emergency room physician. Plan to consult general surgery versus orthopedic surgery for amputation. -Patient's condition warrants consideration for a more proximal level of amputation, specifically a below-knee or above-knee amputation. 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 Santo demonstrated comprehension of the situation and the need for further surgical intervention.? Patient expressed agreement to proceed with the higher level of amputation as recommended.? Patient understands the need for another surgical consultation with the appropriate expertise for further evaluation and has agreed to the referral process. -Trend labs -Discharge plan: TBD -Podiatry following Coding Level of Care Code Acute Code for g Fwd Diagnoses Gas gangrene A48.0 Necrotizing soft tissue infection M79.89 Type 2 diabetes mellitus E11.9
[2024-03-01 17:09] LABS: C Reactive Protein 324.5 mg/L (0.0-4.9)
--- NOTE | 2024-03-01 18:09 | PM.CONSULT ---
Providers/Reason For Consult Consulting Physician/Specialty*: Hospitalist Reason for Consult*: Necrotizing fasciitis of right foot Attending Physician: Pat Escamilla MD Primary Care Provider: KULWANT Velazquez History of Present Illness History of Present Illness Santo Smith is a 69 year old male I was consulted to do a below-knee amputation. Podiatry evaluated the patient feels that his the foot is not salvageable and at this point will need a below the knee amputation. Review of Systems General: Reports: 10 or more systems reviewed and unremarkable except in HPI and below Const: Denies: fever(s), chills, body aches or change in appetite Eyes: Denies: change in vision or blurry vision Card: Denies: chest pain, palpitations or irregular heart rhythm Resp: Denies: dyspnea GI: Denies: abdominal pain, nausea, vomiting or diarrhea Musc: Reports: joint stiffness Skin/Breast: Reports: non-healing lesions and lesions Neuro: Reports: numbness in extremities Medications/Allergies Home Medications Medication Instructions Recorded Confirmed Last Taken Type glyburide 5 mg tablet 5 mg PO BID 11/25/20 03/01/24 02/27/24 History lisinopril 20 mg tablet 20 mg PO DAILY 11/25/20 03/01/24 02/27/24 History metformin 1,000 mg tablet 500 mg PO BID 11/25/20 03/01/24 02/27/24 History aspirin 81 mg capsule 81 mg PO DAILY 10/23/21 03/01/24 02/27/24 History insulin NPH isoph U-100 human 100 45 unit SUBCUT DAILY 06/22/23 03/01/24 02/27/24 History unit/mL subcutaneous suspension (Novolin N NPH U-100 Insulin isophane) amoxicillin 875 mg-potassium 1 tab PO BID 03/01/24 03/01/24 02/27/24 History clavulanate 125 mg tablet Allergies Allergy/AdvReac Type Severity Reaction Status Date / Time No Known Allergies Allergy Verified 03/01/24 12:05 PFSH Acute PFSH: Medical History (Updated 03/01/24 @ 18:10 by Zackary Jackson DO) Type 2 diabetes mellitus Hypertension Family History Father Cancer lung cancer Mother CAD (coronary artery disease) Social History Smoking and tobacco/nicotine status: tobacco/nicotine user, details unknown smokeless tobacco Smokeless tobacco user: chewing tobacco Vitals/I&O/Wt Last Vital Signs Temp 98.1 F 03/01/24 17:34 Pulse 79 03/01/24 17:34 Resp 20 H 03/01/24 17:34 BP 161/78 03/01/24 17:34 Pulse Ox 99 03/01/24 17:34 O2 Del Method Room Air 03/01/24 14:59 03/01/24 03/01/24 03/01/24 06:59 14:59 22:59 Intake Total 1050 / 1050 Balance 1050 / 1050 Weight last 48 hrs Weight 250 lb Physical Exam Narrative: See pictures in podiatry note with Dr. Rodrigues Data 03/01/24 13:10 03/01/24 13:10 Micro: Microbiology 03/01/24 13:18 Blood Culture - Preliminary Blood SPECIMEN COLLECTED 03/01/24 13:10 Blood Culture - Preliminary Blood SPECIMEN COLLECTED A&P Assessment and plan (1) Necrotizing fasciitis: Patient has necrotizing fasciitis of his right foot. This point my plan is to do the below the knee amputation unless it tracks up any higher. I will do above the amputation. Coding Level of Care Code Acute Code for [facility] Fwd Diagnoses Necrotizing fasciitis M72.6
--- NOTE | 2024-03-01 18:22 | P.ANESASSM_ITS ---
Pre-Anesthetic Assessment Height/Weight: Height 1.83 m Weight 113.398 kg Temp Pulse Resp BP Pulse Ox O2 Del Method 98.1 F 79 20 H 161/78 99 Room Air 03/01/24 17:34 03/01/24 17:34 03/01/24 17:34 03/01/24 17:34 03/01/24 17:34 03/01/24 14:59 Operation Date: 03/01/24 18:30 Proposed Procedures p Below Knee Amputation(Right) - Zackary Jacskon DO Familial anesthetic complications: none Was Beta Hemant taken within 24 hours: N/A Was Clonidine taken within 24 hours: N/A Last intake: > 8 hrs Social Tobacco and No alcohol Exam alert, oriented x 3, clear to auscultation bilaterally and regular rate & rhythm Airway Mallampati: Class IV Dentition: chipped and loose Metabolic Diabetes Mellitus Anesthetic Plan ASA status: 4 Anesthesia: General and Regional (specify below) Medications/Allergies Home Medications Medication Instructions Recorded Confirmed Last Taken Type glyburide 5 mg tablet 5 mg PO BID 11/25/20 03/01/24 02/27/24 History lisinopril 20 mg tablet 20 mg PO DAILY 11/25/20 03/01/24 02/27/24 History metformin 1,000 mg tablet 500 mg PO BID 11/25/20 03/01/24 02/27/24 History aspirin 81 mg capsule 81 mg PO DAILY 10/23/21 03/01/24 02/27/24 History insulin NPH isoph U-100 human 100 45 unit SUBCUT DAILY 06/22/23 03/01/24 02/27/24 History unit/mL subcutaneous suspension (Novolin N NPH U-100 Insulin isophane) amoxicillin 875 mg-potassium 1 tab PO BID 03/01/24 03/01/24 02/27/24 History clavulanate 125 mg tablet Allergies Allergy/AdvReac Type Severity Reaction Status Date / Time No Known Allergies Allergy Verified 03/01/24 12:05 [facility] Anesthesia Medical History (Updated 03/01/24 @ 18:10 by Zackary Jackson DO) Type 2 diabetes mellitus Hypertension Family History Father Cancer lung cancer Mother CAD (coronary artery disease) Social History Smoking and tobacco/nicotine status: tobacco/nicotine user, details unknown smokeless tobacco Smokeless tobacco user: chewing tobacco Data Anesthesia 03/01/24 13:10 03/01/24 13:10 Short CBC 03/01/24 Range/Units 13:10 WBC 28.07 H (3.29-11.43) 10^3/uL Hgb 12.20 (11.27-16.99) g/dL Hct 36.4 L (37-53) % MCV 85.2 (82-101) fl Plt Count 454 H (157-399) 10^3/cmm Neut % (Auto) 84.6 % Neut # (Auto) 23.72 H (1.8-7.7) 10^3/uL BMP 03/01/24 13:10 Sodium 126 L Potassium 4.2 Chloride 87 L Carbon Dioxide 16 L BUN 30 H Creatinine 1.0 Glucose 397 H Calcium 9.1 Liver Function 03/01/24 Range/Units 13:10 Total Bilirubin 0.7 (0.15-1.2) mg/dL AST 13 (0-40) U/L ALT 9 (0-41) U/L Alkaline Phosphatase 188 H (40-130) U/L Albumin 3.1 L (3.5-5.2) g/dL Urine 03/01/24 Range/Units 13:56 Urine Color Yellow (Yellow) Urine Appearance Clear (CLEAR) Urine pH 5 (5-7) Ur Specific Bono 1.015 (1.005-1.030) Urine Protein Neg (Negative) Urine Glucose (UA) 4+ H (Normal) Urine Ketones 2+ H (Negative) Urine Nitrate Negative (Negative) Urine Bilirubin Neg (Negative) Ur Leukocyte Esterase Negative (Negative) Coags 03/01/24 13:10 ESR 86 H PT 17.60 H INR 1.40 H C-Reactive Protein 324.5 H Microbiology 03/01/24 13:18 Blood Culture - Preliminary Blood SPECIMEN COLLECTED 03/01/24 13:10 Blood Culture - Preliminary Blood SPECIMEN COLLECTED Cardiac Studies: 2 No Data to Display
--- NOTE | 2024-03-01 18:22 | ANES.PROC ---
Anesthesia Procedures Procedure/Date: 03/01/24 Nerve Block ^: Nerve Block 1: Main Anesthesia: general anesthesia Time Out Performed: Yes Consent: requested by attending/covering physician, from patient, from other, risks and benefits reviewed and patient agrees to proceed Nerve block location: popliteal (R) Anesthesia monitors applied: pulse oximetry, EKG, BP cuff and oxygen Nerve block position: supine Anesthetic Used: ropivicaine 0.5% (30 ml) and with decadron (4 mg) Ultrasound used to: recognize landmarks Nerve Stimulator Used?: No Interscalene/Femoral BLK: 4 stimuplex 21 g needle used for position and inplane approach, visualize local anesthetic spread and no vascular puncture identified Patient Tolerated Procedure: well
--- NOTE | 2024-03-01 20:06 | PM.OP ---
Operative Report Date of procedure: March 01, 2024 Pre-op diagnosis: Digitizing fasciitis of the right foot Post-op diagnosis: same Procedure done: Right below the knee amputation Surgeon: Zackary Jackson DO Estimated blood loss (mL): 50 Procedure: Right below the knee amputation Please read your procedure after undergoing anesthesia was placed in the supine position. Tourniquet was on never used. Patient's leg was prepped draped also fashion where the pressure well-padded. Patient's prepped draped in sterile fashion. Skin incision was drawn out a fishmouth pattern. Skin was cut using knife followed by Bovie once the tibia and fibula were exposed they were cut. The nerves and blood vessels veins were all cut and tied off. The gastroc and soleus were peeled off. Once the skin was cut and the soleus and gastroc were debulked and sewn up over the tibia. To the fascia skin was undermined. Skin was then closed with Vicryl and nylon suture. Sterile dressings were applied patient transferred to the PACU in stable addition.
--- NOTE | 2024-03-01 20:35 | ANE.PACU2 ---
Inpatient post-anesthesia follow up: Airway intact: Yes Vital signs: Temperature 97.4 F Pulse Rate 69 Respiratory Rate 24 Blood Pressure 127/63 Pulse Oximetry 98 Oxygen Delivery Me thod Room Air Oxygen Flow Rate Fraction of Inspir ed Oxygen Hydration adequate: Yes Nausea and vomiting: No Pain level: 1 Mental status: Baseline
[2024-03-01 20:54] LABS: Glucose Point of Care 345 mg/dL (70-110)
[2024-03-01 20:54] LABS: Ketone (Acetest) Serum Positive (Negative)
[2024-03-01 21:10] LABS: Hepatitis B Surface Antigen Non-Reactive (Nonreactive)
[2024-03-01 21:22] LABS: HIV 1 & 2 Antibody Non-Reactive (Non-Reactiv); HIV 1 & 2 Antigen Non-Reactive (Non-Reactiv)
--- NOTE | 2024-03-01 21:25 | P.HP_ITS ---
Providers/Chief Complaint 2 Admitting Physician: Pat Escamilla MD Primary Care Provider: KULWANT Velazquez Chief Complaint: weakness History of Present Illness Santo Smith is a 69 year old male with a past medical history of type 2 diabetes mellitus, hypertension, history of mass of the lower lip lower face ruled out to be cancer at [facility], etiology uncertain, who presents to [facility] due to 2-week history of fatigue, malaise, has been bedbound for over a week, with subjective fever, patient was seen by primary care provider, was started on antibiotics for possible infection without etiology unclear, here in the emergency room, patient was found to have a right necrotic foot, foul-smelling, with concerns for necrotizing fasciitis seen by Dr. Bridges then by Dr. Jackson, concerns for necrotizing fasciitis, right foot diabetic foot infection, taken to the operating room for right below-knee amputation by Dr. Jackson, patient was seen postoperatively, alert to person, to place, not to time, following all commands, is at bedside, he denies any pain anywhere else, I also examined his back he has a stage I decubitus ulcer over the sacrum, I also looked at the left foot, no evidence of cellulitis or infection, no skin breakdown he does have superficial ulcers over the left lower extremity, but he tells me that he has had this for many months, patient has a mass just below the lower lip, he has been up to [place] has had he tells me 100s of biopsies which have not yielded an etiology, negative for malignancy he tells me they do not know what it is, so he is supposed to see a global expansion sales director in [place] Review of Systems 2 Const: Reports: fever(s), chills, fatigue and malaise Card: Denies: chest pain Resp: Denies: dyspnea GI: Denies: abdominal pain : Denies: flank pain Neuro: Denies: headache(s) Medications/Allergies Home Medications Medication Instructions Recorded Confirmed Last Taken Type glyburide 5 mg tablet 5 mg PO BID 11/25/20 03/01/24 02/27/24 History lisinopril 20 mg tablet 20 mg PO DAILY 11/25/20 03/01/24 02/27/24 History metformin 1,000 mg tablet 500 mg PO BID 11/25/20 03/01/24 02/27/24 History aspirin 81 mg capsule 81 mg PO DAILY 10/23/21 03/01/24 02/27/24 History insulin NPH isoph U-100 human 100 45 unit SUBCUT DAILY 06/22/23 03/01/24 02/27/24 History unit/mL subcutaneous suspension (Novolin N NPH U-100 Insulin isophane) amoxicillin 875 mg-potassium 1 tab PO BID 03/01/24 03/01/24 02/27/24 History clavulanate 125 mg tablet Allergies Allergy/AdvReac Type Severity Reaction Status Date / Time No Known Allergies Allergy Verified 03/01/24 12:05 PFSH Acute 2 PFSH: Medical History Type 2 diabetes mellitus Hypertension Family History Father Cancer lung cancer Mother CAD (coronary artery disease) Social History Smoking and tobacco/nicotine status: tobacco/nicotine user, details unknown smokeless tobacco Smokeless tobacco user: chewing tobacco Vitals/I&O/Wt Last Vital Signs Temp 99.0 F 03/01/24 20:31 Pulse 77 03/01/24 20:31 Resp 30 H 03/01/24 20:31 BP 130/67 03/01/24 20:31 Pulse Ox 96 03/01/24 20:31 O2 Del Method Room Air 03/01/24 20:31 03/01/24 03/01/24 03/01/24 06:59 14:59 22:59 Intake Total 2350 / 2350 Output Total 50 / 50 Balance 2300 / 2300 Weight last 48 hrs Weight 110.223 kg Weight 113.398 kg Physical Exam 2 Const: COMMON NORMALS: no acute distress ORIENTATION/CONSCIOUSNESS: Yes awake, Yes oriented to person and Yes oriented to place; not oriented to time HENMT: COMMON NORMALS: normocephalic HEAD & SCALP: normocephalic Eye: COMMON NORMALS: Equal, round and reactive pupils present Neck/C-Spine: COMMON NORMALS: no JVD Lymph: LYMPHATIC: no lymphadenopathy noted Resp: COMMON NORMALS: normal respiratory effort, No retractions, No use of accessory muscles and clear to auscultation bilaterally AUSCULTATION: clear to auscultation bilaterally Cardio: COMMON NORMALS: no JVD, regular rate, regular rhythm, S1 normal heart sound present and S2 normal heart sound present RATE: regular rate RHYTHM: regular rhythm HEART SOUNDS: S1 normal heart sound present and S2 normal heart sound present GI: COMMON NORMALS: Normal to inspection, nondistended, normoactive bowel sounds present, Soft to palpation and non-tender Extremity: COMMON NORMALS: no calf tenderness and no pedal edema Neuro: COMMON NORMALS: patient oriented x3, CN's II-XII intact bilaterally and moves all extremities Psych: COMMON NORMALS: mental status grossly normal Skin: NARRATIVE SKIN EXAM: Right lower extremity wrapped ? Left lower extremity DP PT pulses diminished, palpable, no skin breakdown, no tenderness does have neuropathy Data 03/01/24 13:10 03/01/24 13:10 Micro: Microbiology 03/01/24 13:18 Blood Culture - Preliminary Blood SPECIMEN COLLECTED 03/01/24 13:10 Blood Culture - Preliminary Blood SPECIMEN COLLECTED A&P Assessment and plan (1) Type 2 diabetes mellitus: (2) Hyponatremia: (3) Leukocytosis: (4) Cellulitis of foot, right: (5) Necrotizing fasciitis: (6) Gas gangrene: (7) Necrotizing soft tissue infection: (8) Necrotizing fasciitis: (9) Hyperglycemia: (10) Increased anion gap metabolic acidosis: Plan Right foot, necrotizing fasciitis, gangrene, diabetic foot infection, cellulitis CT/CT lower leg RT wo con* [id number] IMPRESSION: 1. Soft tissue ulceration of the plantar aspect of the forefoot subjacent to the 2nd toe with gas-forming infection and intraosseous air within the proximal phalanx suggestive of gangrene/osteomyelitis. There is possible involvement of the 2nd metatarsophalangeal joint. MRI of the right foot is recommended. ? Status post right below-knee amputation ? Plan ? Continue vancomycin ? Continue Zosyn, ? Continue clindamycin given necrotizing fasciitis ? Follow blood cultures ? Monitor clinical status ? PT OT ? Lovenox for DVT prophylaxis ? Full code Hyperglycemia, increased anion gap metabolic acidosis ? Patient has hyperglycemia with increased anion gap metabolic acidosis, ketones positive ? Currently seen on [facility] ? It looks like patient is not diabetic ketoacidosis, last BMP was from 1 PM ? I am going to repeat BMP with ABG, -keep patient on sips and chips ? If ABG, BMP shows persistent increased anion gap metabolic acidosis will moved down to ICU and started on insulin drip ? If his pH and anion gap is improved can try to manage on MedSurg with subcu insulin ? Will order vascular studies New RIGHT inguinal lymph nodes. These lymph nodes are enlarged and hyperemic. New since the PET/CT of 07/22/2023. Suspicious for neoplastic versus reactive adenopathy. -Could be from necrotizing fasciitis we will have to monitor \ soft tissue mass in the LEFT upper abdomen which is similar attenuation and enhancement of the adjacent spleen. This may be a large splenule. This is inseparable from the pancreas. No interval increase in size since 07/22/2023. -Will have to be followed as outpatient Mass of lower lip, lower face ? 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 CT neck Reidentified is a soft tissue mass centered within the mandibular symphysis with extension to encase several of the incisors. Very similar in appearance to the prior CT of 07/22/2023. No obvious progression. Level 2 and level 1 lymph nodes have decreased in size since the prior PET/CT of 07/22/2023. There are no new or enlarging lymph nodes. No compromise of the airway. ? Patient has seen specialist in [place] over 6 months ago patient tells me he has had over 100 biopsies and none of them showed malignancy, did have a central incisors removed ? Patient will need to follow-up with oncology as outpatient Attestations 2 Medical Necessity Statement*: Patient requires hospitalization, inpatient, greater than 2 minutes, for necrotizing fasciitis right foot, diabetic foot infection, status post amputation, requiring IV antibiotics, hyperglycemia Diagnoses Type 2 diabetes mellitus E11.9 Hyponatremia E87.1 Leukocytosis D72.829 Cellulitis of foot, right L03.115 Necrotizing fasciitis M72.6 Gas gangrene A48.0 Necrotizing soft tissue infection M79.89 Hyperglycemia R73.9 Increased anion gap metabolic acidosis E87.29
[2024-03-01 22:04] LABS: Anion Gap 23.3 (5-19); Blood Urea Nitrogen 28 mg/dL (8-23); Carbon Dioxide 16 mmol/L (22-29); Chloride 93 mmol/L (98-107); Chol HDL Ratio 6.72 mg/dL (1.0-5.00); Cholesterol 121 mg/dL (0-200); Creatinine Clr Calc Pharmacy 102.1202; Glomerular Filtration Rate 84.2 mL/min (90-130); Glucose 321 mg/dL (65-115); HDL Cholesterol 18 mg/dL (60-100); Hepatitis B Surface AB < 3.5 (11.5-1000); Hepatitis C Virus Antibody Non-Reactive (Nonreactive); LDL Cholesterol Calculated 89 mg/dL (50-129); LDL HDL Ratio 4.94 RATIO (0.00-3.22); Osmolality Calculated 284 mOsm/kg (285-295); Phosphorus 3.7 mg/dL (2.5-4.5); Potassium 4.3 mmol/L (3.5-5.1); Sodium 128 mmol/L (136-145); Triglycerides 72 mg/dL (0-150)
[2024-03-01 22:20] LABS: ABG PCO2 28.2 mmHg (35-45); ABG PH Result 7.34 (7.35-7.45); Arterial Blood Gas Hematocrit 35.2 % (42-52); Base Excess ABG -9.2 mmol/L (-2.0-2.0); Blood Gas Allen Test Pos; Blood Gas Sample Site Radial, right; Blood Gas Sample Type Arterial; HCO3 ABG 15.3 mmol/L (22-26); PO2 ABG 88.5 mmHg (80.0-100.0); PO2 FiO2 Ratio Arterial Blood 0
[2024-03-01 22:28] LABS: Estmated Average Glucose 246; Hemoglobin A1C 10.2 % (4.0-6.0)
[2024-03-01 22:32] LABS: Glucose Point of Care 373 mg/dL (70-110)
[2024-03-01] MEDS: sodium chloride 0.9% 1,000 ML 75 ML IV (23:03)
[2024-03-01] MEDS: clindamycin 600 MG/50 ML PREMIX 100 MG IV (23:06)
[2024-03-01] MEDS: pantoprazole 40 mg SDV IVP (23:06)
[2024-03-01 23:25] LABS: Glucose Point of Care 383 mg/dL (70-110)
[2024-03-02] VITALS (21 sets, daily range): BP systolic 110–147; BP diastolic 51–73; PULSE 67–75; RESP 16–24; TEMP 36.3–36.8; O2SAT 91–100; BMI 33.2
[2024-03-02 00:04] LABS: Glucose Point of Care 398 mg/dL (70-110)
[2024-03-02] MEDS: piperacillin-tazobactam 3.375 GM in sodium chloride 0.9% (plus) 50 ML IV ×4 (00:06→23:28)
[2024-03-02] MEDS: potassium chloride ER 20 mEq Tablet PO ×2 (00:08→09:33)
[2024-03-02] MEDS: insulin glargine 100 units/1 mL 10 UNIT SUBCUT (00:09)
[2024-03-02] MEDS: insulin lispro 100 unit/1 mL SUBCUT ×3 (00:09→18:12)
[2024-03-02 01:13] LABS: Glucose Point of Care 339 mg/dL (70-110)
[2024-03-02 01:32] LABS: Blood Urea Nitrogen 30 mg/dL (8-23); Calcium 8.5 mg/dL (8.5-10.5); Carbon Dioxide 14 mmol/L (22-29); Chloride 92 mmol/L (98-107); Creatinine Clr Calc Pharmacy 91.9082; Glomerular Filtration Rate 74.5 mL/min (90-130); Glucose 387 mg/dL (65-115); Osmolality Calculated 288 mOsm/kg (285-295); Sodium 128 mmol/L (136-145)
[2024-03-02 02:11] LABS: Glucose Point of Care 358 mg/dL (70-110)
[2024-03-02] MEDS: potassium chloride ER 20 mEq Tablet 40 MEQ PO (03:08)
[2024-03-02 03:10] LABS: Glucose Point of Care 339 mg/dL (70-110)
--- NOTE | 2024-03-02 03:37 | PC.NURSE ---
Report called to MISSY Bran In ICU. Patient transferred to ICU 2 by hospital bed with all belongings.
--- NOTE | 2024-03-02 03:41 | PC.NURSE ---
Nurse asked patient if he would like his updated on his transfer to ICU and patient said no, please do not update her tonight.
[2024-03-02] MEDS: sodium bicarbonate 8.4% 1 mEq/mL 50mL Syr 50 MEQ IVP (03:45)
[2024-03-02 04:11] LABS: Glucose Point of Care 332 mg/dL (70-110)
[2024-03-02] MEDS: INSULIN REGULAR IN 0.9 % NACL 100 UNIT/100 ML BAG 9.5 UNIT IV (04:20)
[2024-03-02] MEDS: vancomycin 1,500 MG/300 ML PIGGYBACK 200 MG IV ×2 (04:50→16:21)
[2024-03-02 05:28] LABS: Glucose Point of Care 313 mg/dL (70-110)
[2024-03-02] MEDS: clindamycin 600 MG/50 ML PREMIX 100 MG IV ×3 (06:14→20:34)
[2024-03-02] MEDS: enoxaparin 40 mg/0.4 mL Syringe SUBCUT (06:14)
[2024-03-02 06:44] LABS: Basophils % 0.2 %; Hematocrit 33.5 % (37-53); Mean Corpuscular HGB Conc 32.8 g/dL (30-55); Mean Corpuscular Hemoglobin 28.1 pg (27-33); Mean Corpuscular Volume 85.7 fl (82-101); Mean Platelet Volume 9.3 fL (7.4-10.4); Monocytes # 0.9 10^3/uL (0.2-0.9); Monocytes % 4.1 %; Neutrophils # 18.66 10^3/uL (1.8-7.7); Neutrophils % 89.8 %; Nucleated Red Blood Cells % 0 %; Platelet Count 422 10^3/cmm (157-399); Red Blood Count 3.91 10^6/uL (3.85-5.65); Red Cell Distribution Width 13.2 % (12.1-15.1); White Blood Count 20.78 10^3/uL (3.29-11.43)
[2024-03-02 06:55] LABS: Anion Gap 18.7 (5-19); Blood Urea Nitrogen 30 mg/dL (8-23); Calcium 8.4 mg/dL (8.5-10.5); Carbon Dioxide 20 mmol/L (22-29); Chloride 96 mmol/L (98-107); Creatinine Clr Calc Pharmacy 92.2578; Glomerular Filtration Rate 74.5 mL/min (90-130); Glucose 295 mg/dL (65-115); Magnesium 2.2 mg/dL (1.7-2.3); Osmolality Calculated 289 mOsm/kg (285-295); Potassium 3.7 mmol/L (3.5-5.1); Sodium 131 mmol/L (136-145)
[2024-03-02 07:21] LABS: Glucose Point of Care 312 mg/dL (70-110)
[2024-03-02] MEDS: aspirin 81 mg Chew Tablet PO (08:01)
[2024-03-02 08:24] LABS: Glucose Point of Care 243 mg/dL (70-110)
[2024-03-02 08:47] LABS: Anion Gap 17.6 (5-19); Blood Urea Nitrogen 31 mg/dL (8-23); Calcium 8.4 mg/dL (8.5-10.5); Carbon Dioxide 20 mmol/L (22-29); Chloride 98 mmol/L (98-107); Creatinine Clr Calc Pharmacy 102.5087; Glomerular Filtration Rate 84.2 mL/min (90-130); Glucose 242 mg/dL (65-115); Osmolality Calculated 289 mOsm/kg (285-295); Potassium 3.6 mmol/L (3.5-5.1); Sodium 132 mmol/L (136-145)
--- NOTE | 2024-03-02 08:53 | P.PN_ITS ---
Subjective 2 Subjective: Patient came in for symptoms related to necrotizing fasciitis He developed DKA Status post right leg amputation, right below-knee amputation by Dr. Jackson At the time of evaluation patient is not complaining active pain, he is able to void urine in the urinal Endorsing living with his Does not use oxygen Patient takes insulin along with glyburide This morning DKA resolved Added diet: Lantus and continued normal saline DKA protocol discontinued Bicarb improved Vitals/I&O/Wt Last Vital Signs Temp 97.4 F L 03/02/24 04:00 Pulse 72 03/02/24 07:53 Resp 20 H 03/02/24 07:53 BP 127/63 03/02/24 04:00 Pulse Ox 94 03/02/24 07:53 O2 Del Method Room Air 03/02/24 07:53 03/01/24 03/02/24 03/02/24 22:59 06:59 14:59 Intake Total 2390 / 2390 712.300 / 3102.300 Output Total 300 / 300 800 / 1100 Balance 2090 / 2090 -87.700 / 2002.300 Weight last 48 hrs Weight 111.085 kg Weight 110.223 kg Weight 113.398 kg Physical Exam 2 Narrative: Patient is laying supine Awake and alert GCS 15 Right below-knee amputation No active complaints Pleasant cough Lower lip ulcer noticed Dental caries Edentulous Pleasant cooperative Currently on room air Hemodynamically stable Data 03/02/24 06:27 03/02/24 08:05 Micro: Microbiology 03/01/24 13:18 Blood Culture - Preliminary Blood SPECIMEN COLLECTED 03/01/24 13:10 Blood Culture - Preliminary Blood SPECIMEN COLLECTED A&P Assessment and plan (1) Type 2 diabetes mellitus: (2) Hyperglycemia: (3) Hyponatremia: (4) Lesion of mouth: (5) Increased anion gap metabolic acidosis: (6) Leukocytosis: (7) Necrotizing soft tissue infection: (8) Necrotizing fasciitis: (9) Cellulitis of foot, right: (10) Gas gangrene: (11) Necrotic wound of left hand: (12) Skin lesion of face: (13) Lymphadenopathy of head and neck region: (14) Weakness: Plan Necrotizing fasciitis right foot extending all the way up to ankle right lower extremity Status post right below-knee amputation by Dr. Jackson 03/01 Postop day 1 No postoperative complication Incentive spirometer PT DKA: Resolved Stop insulin drip Replenish potassium ICU nurse notified Start Lantus 30 units along with sliding scale continue IV fluids Necrotizing fasciitis status post amputation: Continue antibiotics until the day of discharge Patient is not interested in skilled nursing placement, stating that he would like to go home with his Lower lip lesion still under investigation, no history of cancer as of yet Edentulous dental caries Metabolic acidosis: Resolved Patient is denying any cardiac history I will put him on consistent carb diet Full code Insulin with sliding scale along Lantus I do not think we need IV antibiotics or PICC line placement as of now Spoke with the ICU nurse, will get in touch with Dr. Jackson Attestations 2 Medical Necessity Statement*: We may be able to transfer out of ICU end of the day Coding Level of Care Code Critical Care >/= 30 minutes Critical care time (in minutes): 30 The high probability of a clinically significant, sudden or life threatening deterioration, as referenced in this documentation, required my full and direct attention, intervention and personal management. The critical care time shown is in addition to time spent performing any reported separately billable procedures and includes the following: [x] Data and vital sign review and interpretation [x ] Patient assessment, examination and intervention [x] Medication orders and management [x] Patient/Family updates as able [x] Care Coordination and Documentation. Diagnoses Type 2 diabetes mellitus E11.9 Hyperglycemia R73.9 Hyponatremia E87.1 Lesion of mouth K13.70 Increased anion gap metabolic acidosis E87.29 Leukocytosis D72.829 Necrotizing soft tissue infection M79.89 Necrotizing fasciitis M72.6 Cellulitis of foot, right L03.115 Gas gangrene A48.0 Necrotic wound of left hand S61.402A; I96 Skin lesion of face L98.9 Lymphadenopathy of head and neck region R59.0 Weakness R53.1
[2024-03-02] MEDS: insulin glargine 100 units/1 mL 30 UNIT SUBCUT ×2 (09:33→20:34)
--- NOTE | 2024-03-02 10:02 | P.PN_ITS ---
Subjective 2 Subjective: Patient is doing well in NICU no complaints of pain. Vitals/I&O/Wt Last Vital Signs Temp 97.4 F L 03/02/24 04:00 Pulse 69 03/02/24 09:00 Resp 22 H 03/02/24 09:00 BP 144/66 03/02/24 09:00 Pulse Ox 98 03/02/24 09:00 O2 Del Method Room Air 03/02/24 07:53 03/01/24 03/02/24 03/02/24 22:59 06:59 14:59 Intake Total 2390 / 2390 712.300 / 3102.300 Output Total 300 / 300 800 / 1100 Balance 2090 / 2090 -87.700 / 2002.300 Weight last 48 hrs Weight 244 lb 14.4 oz Weight 243 lb Weight 250 lb Physical Exam 2 Narrative: Dressing clean dry and intact. Patient resting in bed. Data 03/02/24 06:27 03/02/24 08:05 Micro: Microbiology 03/01/24 13:18 Blood Culture - Preliminary Blood SPECIMEN COLLECTED 03/01/24 13:10 Blood Culture - Preliminary Blood SPECIMEN COLLECTED A&P Assessment and plan (1) Below knee amputation: Patient is postop day #1 right below-knee amputation. At this point continue to monitor. Qualifiers: Encounter type: initial encounter Laterality: right Qualified Code(s): S88.111A - Complete traumatic amputation at level between knee and ankle, right lower leg, initial encounter Attestations 2 Medical Necessity Statement*: per primary Coding Level of Care Code Acute Code for [facility] Fwd Diagnoses Below-knee amputation of right lower extremity, initial encounter S88.111A Encounter type: initial encounter Laterality: right
[2024-03-02 12:11] LABS: Glucose Point of Care 283 mg/dL (70-110)
[2024-03-02] MEDS: sodium chloride 0.9% 1,000 ML 75 ML IV (12:30)
[2024-03-02 17:17] LABS: Glucose Point of Care 255 mg/dL (70-110)
--- NOTE | 2024-03-02 17:49 | W.PM.PSYCONS ---
Providers/Reason for Consult Consulting Physican/Specialty*: Eldon Cabrera MD/Psychiatry Reason for Consult*: suicidal ideation/depression Attending Physician: Pat Escamilla MD Primary Care Provider: KULWANT Velazquez Psych Consult HPI History of Present Illness Santo Smith is a 69 year old male admitted with necrotizing fasciitis with recent right below-knee amputation by Dr. Christopher currently on the medical unit with treatment for managing DKA. Patient was interviewed in presence of family members. He had endorsed some stress from the recent changes of not being able to walk but reports that he is not depressed and does not have any thoughts of hurting himself or others. He has reported struggles with managing his diabetes but reports that he is not motivated to harm himself either directly or indirectly by not caring for himself. He had reported some frustration with not being able to receive clarity regarding the mass on his lower lip that had been ruled out to be cancer at [facility] recently. He denies any prior history of psychiatric treatment either inpatient or outpatient. He reports no problems with anxiety. He denies any significant drug or alcohol use. He reports routine use of chewing tobacco. There is no history of psychosis. He denies any history of PTSD symptoms. He denied any history of anxiety symptoms. He did report ports no suicidal thoughts or attempts in the past or present. Pertinent information obtained below. Psychiatric History: none Med/Surgical History: see below Drug and Alcohol hx: none, no history of drug treatment Family Psychiatric Hx: none History: none Allergies: nkda Medications: see below Social History: The patient was raised by his biological parents along with his 10 siblings. 4 are alive currently at this time. 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 He reported no history of developmental delays. He had reported no history of trauma. He currently lives with his 's stepdaughter and his step granddaughter in [place]. He reports having a happy childhood having grown up in [place] as he was born in [place]. He reports that he has not been able to work in several years. Meds Home Medications and Allergies Home Medications Medication Instructions Recorded Confirmed Last Taken Type glyburide 5 mg tablet 5 mg PO BID 11/25/20 03/01/24 02/27/24 History lisinopril 20 mg tablet 20 mg PO DAILY 11/25/20 03/01/24 02/27/24 History metformin 1,000 mg tablet 500 mg PO BID 11/25/20 03/01/24 02/27/24 History aspirin 81 mg capsule 81 mg PO DAILY 10/23/21 03/01/24 02/27/24 History insulin NPH isoph U-100 human 100 45 unit SUBCUT DAILY 06/22/23 03/01/24 02/27/24 History unit/mL subcutaneous suspension (Novolin N NPH U-100 Insulin isophane) amoxicillin 875 mg-potassium 1 tab PO BID 03/01/24 03/01/24 02/27/24 History clavulanate 125 mg tablet Allergies Allergy/AdvReac Type Severity Reaction Status Date / Time No Known Allergies Allergy Verified 03/01/24 12:05 Current Medications Current Medications Generic Name Dose Route Start Last Admin Trade Name Freq PRN Reason Stop Dose Admin Aspirin 81 mg 03/02/24 09:00 03/02/24 08:01 Aspirin 81 Mg Chew Tablet PO 81 mg DAILY BRIANA Administration Enoxaparin Sodium 40 mg 03/02/24 06:00 03/02/24 06:14 Enoxaparin 40 Mg/0.4 Ml Syringe SUBCUT 40 mg Q24H BRIANA Administration Piperacillin Sod/Tazobactam 50 mls @ 12.5 mls/hr 03/01/24 23:00 03/02/24 16:21 Sod 3.375 gm/ Sodium Chloride IV 12.5 mls/hr Q8H BRIANA Administration Protocol Clindamycin HCl/Dextrose 600 mg in 50 mls @ 100 mls/hr 03/01/24 21:30 03/02/24 17:27 Cleocin IV Infused Q8H BRIANA Infusion Protocol Sodium Chloride 1,000 mls @ 75 mls/hr 03/01/24 21:30 03/02/24 12:30 Sodium Chloride 0.9% IV 75 mls/hr .[id number] BRIANA Administration Vancomycin/PEG/NADA/Lysine/Water 1,500 mg in 300 mls @ 200 mls/hr 03/02/24 03:00 03/02/24 16:21 Vancocin IV 200 mls/hr Q12H BRIANA Administration Insulin Glargine 30 unit 03/02/24 08:55 03/02/24 09:33 Insulin Glargine 100 Units/1 Ml SUBCUT 30 unit BEDTIME BRIANA Administration Insulin Human Lispro 0 unit 03/02/24 12:00 03/02/24 12:31 Insulin Lispro 100 Unit/1 Ml SUBCUT 10 unit TIDWM BRIANA Administration Protocol Pantoprazole Sodium 40 mg 03/01/24 21:30 03/01/24 23:06 Pantoprazole 40 Mg Sdv IVP 40 mg Q24H BRIANA Administration PFSH NPU PFSH: Medical History (Updated 03/02/24 @ 10:04 by Zackary Jackson DO) Squamous cell carcinoma of oral cavity ? Type 2 diabetes mellitus Hypertension Family History Father Cancer lung cancer Mother CAD (coronary artery disease) Social History Smoking and tobacco/nicotine status: tobacco/nicotine user, details unknown smokeless tobacco Smokeless tobacco user: chewing tobacco Mental Status Exam MSE Comments: Patient 69-year-old male who appeared his stated age he was alert and oriented to person place time and situation. There appeared on his lower lip a significant enlargement of the skin around his lip exophytic skin growth, his gait was not tested. There was evidence of his right below the knee amputation. His speech was slightly slurred and decreased in volume. His mood was described as allright. His affect appeared slightly restricted. His thought process was linear logical and goal-directed. His thought content showed no evidence of homicidal or suicidal ideation. There was no clear evidence of delusional thinking. He did not appear to be responding to internal stimuli. His recent and remote memory were grossly intact. His attention span appeared fair. His insight was fair. His judgment appeared adequate. His impulse control appeared fair. Vitals/I&O/Wt Last Vital Signs Temp 98.2 F 03/02/24 17:47 Pulse 73 03/02/24 17:47 Resp 18 03/02/24 17:47 BP 147/62 03/02/24 17:47 Pulse Ox 100 03/02/24 17:47 O2 Del Method Room Air 03/02/24 17:47 03/02/24 03/02/24 03/02/24 06:59 14:59 22:59 Intake Total 712.300 / 3102.300 1127.7 / 1127.7 530 / 1657.7 Output Total 800 / 1100 Balance -87.700 / 2002.300 1127.7 / 1127.7 530 / 1657.7 Weight last 48 hrs Weight 111.085 kg Weight 110.223 kg Weight 113.398 kg Data NPU 03/02/24 06:27 03/02/24 08:05 Micro: Microbiology 03/01/24 19:11 Gram Stain - Final Leg - Wound Anaerobic Culture - Preliminary 03/01/24 13:18 Blood Culture - Preliminary Blood NEGATIVE TO DATE 03/01/24 13:10 Blood Culture - Preliminary Blood NEGATIVE TO DATE Microbiology 03/01/24 19:11 Leg - Wound Gram Stain - Final 03/01/24 19:11 Leg - Wound Anaerobic Culture - Preliminary 03/01/24 13:18 Blood Blood Culture - Preliminary NEGATIVE TO DATE 03/01/24 13:10 Blood Blood Culture - Preliminary NEGATIVE TO DATE A&P Assessment and plan (1) Type 2 diabetes mellitus: (2) Hyperglycemia: (3) Hyponatremia: (4) Lesion of mouth: (5) Increased anion gap metabolic acidosis: (6) Leukocytosis: (7) Necrotizing soft tissue infection: (8) Necrotizing fasciitis: (9) Cellulitis of foot, right: (10) Gas gangrene: (11) Necrotic wound of left hand: (12) Skin lesion of face: (13) Lymphadenopathy of head and neck region: (14) Weakness: Plan Patient not in need of any psychiatric care currently. Contact if any further input needed. Attestations NPU Medical Necessity Statement*: No inpatient psychiatric stay necessary. Coding Level of Care Code Acute Code for [facility] Fwd Diagnoses Type 2 diabetes mellitus E11.9 Hyperglycemia R73.9 Hyponatremia E87.1 Lesion of mouth K13.70 Increased anion gap metabolic acidosis E87.29 Leukocytosis D72.829 Necrotizing soft tissue infection M79.89 Necrotizing fasciitis M72.6 Cellulitis of foot, right L03.115 Gas gangrene A48.0 Necrotic wound of left hand S61.402A; I96 Skin lesion of face L98.9 Lymphadenopathy of head and neck region R59.0 Weakness R53.1
[2024-03-02 20:23] LABS: Glucose Point of Care 265 mg/dL (70-110)
[2024-03-02] MEDS: morphine 4 mg/mL SDV 1 mL 2 MG IVP (20:33)
[2024-03-02] MEDS: pantoprazole 40 mg SDV IVP (20:33)
[2024-03-03] VITALS (12 sets, daily range): BP systolic 121–161; BP diastolic 55–76; PULSE 65–74; RESP 16–19; TEMP 36.3–36.8; O2SAT 95–99
[2024-03-03] MEDS: sodium chloride 0.9% 1,000 ML 75 ML IV (01:21)
[2024-03-03] MEDS: vancomycin 1,500 MG/300 ML PIGGYBACK 200 MG IV ×2 (03:21→15:13)
[2024-03-03] MEDS: morphine 4 mg/mL SDV 1 mL 2 MG IVP (03:25)
[2024-03-03] MEDS: enoxaparin 40 mg/0.4 mL Syringe SUBCUT (05:16)
[2024-03-03] MEDS: clindamycin 600 MG/50 ML PREMIX 100 MG IV ×3 (05:16→20:57)
[2024-03-03 06:03] LABS: Basophils # 0.1 10^3/uL (0.0-0.1); Basophils % 0.2 %; Hematocrit 32.3 % (37-53); Lymphocytes # 1.7 10^3/uL (0.8-4.8); Mean Corpuscular HGB Conc 33.1 g/dL (30-55); Mean Corpuscular Volume 84.6 fl (82-101); Mean Platelet Volume 9.5 fL (7.4-10.4); Monocytes # 1.7 10^3/uL (0.2-0.9); Monocytes % 6.8 %; Neutrophils # 20.61 10^3/uL (1.8-7.7); Neutrophils % 84.4 %; Nucleated Red Blood Cells % 0 %; Platelet Count 452 10^3/cmm (157-399); Red Blood Count 3.82 10^6/uL (3.85-5.65); Red Cell Distribution Width 13.4 % (12.1-15.1); White Blood Count 24.42 10^3/uL (3.29-11.43)
[2024-03-03 06:25] LABS: Anion Gap 16.9 (5-19); Blood Urea Nitrogen 25 mg/dL (8-23); Calcium 8.2 mg/dL (8.5-10.5); Carbon Dioxide 20 mmol/L (22-29); Chloride 99 mmol/L (98-107); Creatinine Clr Calc Pharmacy 116.2652; Glomerular Filtration Rate 112.5 mL/min (90-130); Glucose 265 mg/dL (65-115); Osmolality Calculated 288 mOsm/kg (285-295); Potassium 3.9 mmol/L (3.5-5.1); Sodium 132 mmol/L (136-145)
[2024-03-03 06:29] LABS: Magnesium 2.2 mg/dL (1.7-2.3)
[2024-03-03 06:39] LABS: Glucose Point of Care 279 mg/dL (70-110)
[2024-03-03] MEDS: piperacillin-tazobactam 3.375 GM in sodium chloride 0.9% (plus) 50 ML IV ×3 (06:43→23:53)
--- NOTE | 2024-03-03 09:00 | P.PN_ITS ---
Subjective 2 Subjective: Patient have a little more pain in the right lower extremity today. Vitals/I&O/Wt Last Vital Signs Temp 97.7 F 03/03/24 07:40 Pulse 65 03/03/24 07:40 Resp 16 03/03/24 07:40 BP 143/67 03/03/24 07:40 Pulse Ox 96 03/03/24 07:40 O2 Del Method Room Air 03/03/24 07:40 03/02/24 03/03/24 03/03/24 22:59 06:59 14:59 Intake Total 1530 / 2657.7 1613.75 / 4271.45 Output Total 450 / 450 500 / 950 Balance 1080 / 2207.7 1113.75 / 3321.45 Weight last 48 hrs Weight 249 lb Weight 244 lb 14.4 oz Weight 243 lb Weight 250 lb Physical Exam 2 Narrative: Dressing clean dry intact no evidence of any leakage. Data 03/03/24 05:39 03/03/24 05:39 Micro: Microbiology 03/01/24 19:11 Gram Stain - Final Leg - Wound Anaerobic Culture - Preliminary 03/01/24 13:18 Blood Culture - Preliminary Blood NEGATIVE TO DATE 03/01/24 13:10 Blood Culture - Preliminary Blood NEGATIVE TO DATE A&P Assessment and plan (1) Below knee amputation: Postop day #2 right below-knee amputation. Discharge planning Follow-up in orthopedic clinic in 2 weeks. Qualifiers: Encounter type: initial encounter Laterality: right Qualified Code(s): S88.111A - Complete traumatic amputation at level between knee and ankle, right lower leg, initial encounter Attestations 2 Medical Necessity Statement*: Per primary service Coding Level of Care Code Acute Code for [facility] Fwd Diagnoses Below-knee amputation of right lower extremity, initial encounter S88.111A Encounter type: initial encounter Laterality: right
[2024-03-03] MEDS: insulin lispro 100 unit/1 mL SUBCUT ×3 (09:06→17:51)
[2024-03-03] MEDS: aspirin 81 mg Chew Tablet PO (09:06)
--- NOTE | 2024-03-03 09:33 | PC.SOCIAL ---
IMM Update Pg. 2 of IMM updated and reviewed with patient who verbalized understanding. Copy provided.
--- NOTE | 2024-03-03 09:54 | P.PN_ITS ---
Subjective 2 Subjective: Patient with recent visit, endorsing constipation, will give him senna S, lactulose and milk of molasses enema Complaining of pain as well Added Dilaudid to his morphine regimen Leukocytosis worsened Afebrile Cultures negative Currently on room air Vitals/I&O/Wt Last Vital Signs Temp 97.7 F 03/03/24 07:40 Pulse 65 03/03/24 07:40 Resp 16 03/03/24 07:40 BP 143/67 03/03/24 07:40 Pulse Ox 96 03/03/24 07:40 O2 Del Method Room Air 03/03/24 07:40 03/02/24 03/03/24 03/03/24 22:59 06:59 14:59 Intake Total 1530 / 2657.7 1613.75 / 4271.45 Output Total 450 / 450 500 / 950 Balance 1080 / 2207.7 1113.75 / 3321.45 Weight last 48 hrs Weight 112.945 kg Weight 111.085 kg Weight 110.223 kg Weight 113.398 kg Physical Exam 2 Narrative: Sitting on bedside commode Awake and alert Nonfocal neuroexam Currently on room air Hypertensive Endorsing constipation Also complaining of moderate pain in his legs No active suicidal ideation S1, S2 Pleasant cooperative Data 03/03/24 05:39 03/03/24 05:39 Micro: Microbiology 03/01/24 19:11 Gram Stain - Final Leg - Wound Anaerobic Culture - Preliminary 03/01/24 13:18 Blood Culture - Preliminary Blood NEGATIVE TO DATE 03/01/24 13:10 Blood Culture - Preliminary Blood NEGATIVE TO DATE A&P Assessment and plan (1) Type 2 diabetes mellitus: (2) Hyperglycemia: (3) Lesion of mouth: (4) Increased anion gap metabolic acidosis: (5) Leukocytosis: (6) Necrotizing fasciitis: (7) Below knee amputation: Qualifiers: Encounter type: initial encounter Laterality: right Qualified Code(s): S88.111A - Complete traumatic amputation at level between knee and ankle, right lower leg, initial encounter (8) Necrotic wound of left hand: (9) Lymphadenopathy of head and neck region: (10) Weakness: (11) Constipation: Plan Suicidal ideation in the past: No acute indication to go to neuropsychiatric unit Necrotizing fasciitis of leg: Status post amputation, added Dilaudid to morphine Constipation: Added lactulose enema and senna as DKA: Resolved Patient does not want to go to rehab, prefers to go home Continue antibiotics until he is discharged DVT prophylaxis on board Patient tolerating diet, discontinue IV fluids Attestations 2 Medical Necessity Statement*: I will discharge over the weekend Diagnoses Type 2 diabetes mellitus E11.9 Hyperglycemia R73.9 Lesion of mouth K13.70 Increased anion gap metabolic acidosis E87.29 Leukocytosis D72.829 Necrotizing fasciitis M72.6 Below-knee amputation of right lower extremity, initial encounter S88.111A Encounter type: initial encounter Laterality: right Necrotic wound of left hand S61.402A; I96 Lymphadenopathy of head and neck region R59.0 Weakness R53.1 Constipation K59.00
[2024-03-03] MEDS: oxyCODONE 5 mg IR Tab/Cap 10 MG PO ×2 (10:57→17:52)
[2024-03-03] MEDS: lactulose oral liq 20 gm/30 mL UDC 10 GM PO (10:58)
[2024-03-03 11:19] LABS: Glucose Point of Care 291 mg/dL (70-110)
[2024-03-03 15:21] LABS: Vancomycin Trough 14.9 ug/mL (10-15)
[2024-03-03 17:19] LABS: Glucose Point of Care 173 mg/dL (70-110)
[2024-03-03 20:41] LABS: Glucose Point of Care 198 mg/dL (70-110)
[2024-03-03] MEDS: pantoprazole 40 mg SDV IVP (20:57)
[2024-03-03] MEDS: insulin glargine 100 units/1 mL 30 UNIT SUBCUT (20:57)
[2024-03-04] VITALS (9 sets, daily range): BP systolic 121–137; BP diastolic 66–79; PULSE 68–85; RESP 16–18; TEMP 36.3–36.6; O2SAT 94–100
[2024-03-04] MEDS: oxyCODONE 5 mg IR Tab/Cap 10 MG PO ×2 (03:18→14:31)
[2024-03-04] MEDS: vancomycin 1,500 MG/300 ML PIGGYBACK 200 MG IV ×2 (03:18→15:49)
[2024-03-04] MEDS: clindamycin 600 MG/50 ML PREMIX 100 MG IV ×3 (04:44→20:52)
[2024-03-04] MEDS: enoxaparin 40 mg/0.4 mL Syringe SUBCUT (06:17)
[2024-03-04 06:52] LABS: Glucose Point of Care 205 mg/dL (70-110)
[2024-03-04 06:56] LABS: Basophils # 0.1 10^3/uL (0.0-0.1); Basophils % 0.4 %; Eosinophils # 0.2 10^3/uL (0.0-0.8); Eosinophils % 1.8 %; Hematocrit 29.9 % (37-53); Lymphocytes # 1.7 10^3/uL (0.8-4.8); Lymphocytes % 14.5 %; Mean Corpuscular HGB Conc 32.1 g/dL (30-55); Mean Corpuscular Hemoglobin 27.8 pg (27-33); Mean Corpuscular Volume 86.7 fl (82-101); Mean Platelet Volume 9.7 fL (7.4-10.4); Monocytes # 1.2 10^3/uL (0.2-0.9); Monocytes % 10.8 %; Neutrophils # 8.07 10^3/uL (1.8-7.7); Neutrophils % 70.7 %; Nucleated Red Blood Cells % 0 %; Platelet Count 402 10^3/cmm (157-399); Red Blood Count 3.45 10^6/uL (3.85-5.65); Red Cell Distribution Width 13.4 % (12.1-15.1); White Blood Count 11.42 10^3/uL (3.29-11.43)
[2024-03-04 07:15] LABS: Blood Urea Nitrogen 16 mg/dL (8-23); Calcium 7.3 mg/dL (8.5-10.5); Carbon Dioxide 25 mmol/L (22-29); Chloride 100 mmol/L (98-107); Creatinine Clr Calc Pharmacy 116.3341; Glomerular Filtration Rate 134.4 mL/min (90-130); Glucose 204 mg/dL (65-115); Osmolality Calculated 279 mOsm/kg (285-295); Sodium 131 mmol/L (136-145)
[2024-03-04] MEDS: piperacillin-tazobactam 3.375 GM in sodium chloride 0.9% (plus) 50 ML IV ×2 (08:13→17:23)
[2024-03-04] MEDS: aspirin 81 mg Chew Tablet PO (08:13)
[2024-03-04] MEDS: insulin lispro 100 unit/1 mL SUBCUT ×3 (08:16→17:23)
[2024-03-04 11:41] LABS: Glucose Point of Care 228 mg/dL (70-110)
[2024-03-04 16:57] LABS: Glucose Point of Care 163 mg/dL (70-110)
--- NOTE | 2024-03-04 18:18 | P.PN_ITS ---
Subjective 2 Subjective: Patient had 1 bowel movement yesterday Complaining of pain Blood pressure improved Currently on room air Patient is agreeable to go to [facility], leukocytosis improved Vitals/I&O/Wt Last Vital Signs Temp 98.3 F 03/03/24 20:00 Pulse 73 03/03/24 20:00 Resp 19 H 03/03/24 20:00 BP 132/69 03/03/24 20:00 Pulse Ox 96 03/03/24 20:00 O2 Del Method Room Air 03/03/24 16:00 03/03/24 03/03/24 03/03/24 06:59 14:59 22:59 Intake Total 1613.75 / 4271.45 340 / 340 1590 / 1930 Output Total 500 / 950 400 / 400 Balance 1113.75 / 3321.45 340 / 340 1190 / 1530 Weight last 48 hrs Weight 112.945 kg Weight 111.085 kg Physical Exam 2 Narrative: Pleasant cooperative Provide below-knee amputation Nonfocal neuroexam Abdominal distention Bowel sound present Currently on room air Hemodynamic stable Nonfocal neuroexam S1, S2 Data 03/04/24 06:21 03/04/24 06:21 Micro: Microbiology 03/01/24 19:11 Gram Stain - Final Leg - Wound Anaerobic Culture - Preliminary Wound Culture - Preliminary A&P Assessment and plan (1) Type 2 diabetes mellitus: (2) Hyperglycemia: (3) Lesion of mouth: (4) Increased anion gap metabolic acidosis: (5) Leukocytosis: (6) Necrotizing fasciitis: (7) Below knee amputation: Qualifiers: Encounter type: initial encounter Laterality: right Qualified Code(s): S88.111A - Complete traumatic amputation at level between knee and ankle, right lower leg, initial encounter (8) Necrotic wound of left hand: (9) Lymphadenopathy of head and neck region: (10) Weakness: (11) Constipation: Plan Suicidal ideation in the past: No acute exacerbation Necrotizing fasciitis of leg: Status post amputation, pain slightly well-managed Constipation: Improving with aggressive bowel regimen DKA: Resolved Patient does not want to go to rehab, prefers to go home Continue antibiotics until he is discharged, discontinue IV fluids, tolerating diet DVT prophylaxis on board Continue PT on daily basis Attestations 2 Medical Necessity Statement*: Continue medical management Diagnoses Type 2 diabetes mellitus E11.9 Hyperglycemia R73.9 Lesion of mouth K13.70 Increased anion gap metabolic acidosis E87.29 Leukocytosis D72.829 Necrotizing fasciitis M72.6 Below-knee amputation of right lower extremity, initial encounter S88.111A Encounter type: initial encounter Laterality: right Necrotic wound of left hand S61.402A; I96 Lymphadenopathy of head and neck region R59.0 Weakness R53.1 Constipation K59.00
[2024-03-04 20:35] LABS: Glucose Point of Care 151 mg/dL (70-110)
[2024-03-04] MEDS: pantoprazole 40 mg SDV IVP (20:52)
[2024-03-04] MEDS: insulin glargine 100 units/1 mL 30 UNIT SUBCUT (20:52)
[2024-03-05] VITALS (10 sets, daily range): BP systolic 121–158; BP diastolic 54–78; PULSE 67–77; RESP 16–20; TEMP 36.1–37; O2SAT 97–100
[2024-03-05] MEDS: oxyCODONE 5 mg IR Tab/Cap 10 MG PO ×2 (00:54→13:02)
[2024-03-05] MEDS: piperacillin-tazobactam 3.375 GM in sodium chloride 0.9% (plus) 50 ML IV ×2 (00:55→09:18)
[2024-03-05] MEDS: vancomycin 1,500 MG/300 ML PIGGYBACK 200 MG IV (02:49)
[2024-03-05] MEDS: clindamycin 600 MG/50 ML PREMIX 100 MG IV (04:52)
[2024-03-05] MEDS: enoxaparin 40 mg/0.4 mL Syringe SUBCUT (05:00)
[2024-03-05 06:51] LABS: Glucose Point of Care 159 mg/dL (70-110)
[2024-03-05 07:26] LABS: Basophils # 0.1 10^3/uL (0.0-0.1); Basophils % 0.8 %; Eosinophils # 0.3 10^3/uL (0.0-0.8); Eosinophils % 3.2 %; Hematocrit 31.1 % (37-53); Lymphocytes # 1.6 10^3/uL (0.8-4.8); Lymphocytes % 17.3 %; Mean Corpuscular HGB Conc 31.5 g/dL (30-55); Mean Corpuscular Hemoglobin 28.2 pg (27-33); Mean Corpuscular Volume 89.4 fl (82-101); Mean Platelet Volume 9.7 fL (7.4-10.4); Monocytes % 10.8 %; Neutrophils # 6.02 10^3/uL (1.8-7.7); Neutrophils % 66.6 %; Nucleated Red Blood Cells % 0 %; Platelet Count 389 10^3/cmm (157-399); Red Blood Count 3.48 10^6/uL (3.85-5.65); Red Cell Distribution Width 13.2 % (12.1-15.1); White Blood Count 9.04 10^3/uL (3.29-11.43)
[2024-03-05 07:46] LABS: Anion Gap 11.5 (5-19); Blood Urea Nitrogen 8 mg/dL (8-23); Calcium 7.9 mg/dL (8.5-10.5); Carbon Dioxide 24 mmol/L (22-29); Chloride 99 mmol/L (98-107); Glomerular Filtration Rate 134.4 mL/min (90-130); Glucose 147 mg/dL (65-115); Osmolality Calculated 273 mOsm/kg (285-295); Potassium 3.5 mmol/L (3.5-5.1); Sodium 131 mmol/L (136-145)
[2024-03-05 07:55] LABS: Creatinine Clr Calc Pharmacy 117.0839
[2024-03-05] MEDS: lactulose oral liq 20 gm/30 mL UDC 10 GM PO (09:17)
[2024-03-05] MEDS: insulin lispro 100 unit/1 mL SUBCUT ×3 (09:18→17:22)
[2024-03-05] MEDS: aspirin 81 mg Chew Tablet PO (09:18)
[2024-03-05 11:29] LABS: Glucose Point of Care 194 mg/dL (70-110)
--- NOTE | 2024-03-05 11:46 | P.PN_ITS ---
Subjective 2 Subjective: No leukocytosis Discontinue IV antibiotics, switch to p.o. regimen Plan to discharge to [facility] by tomorrow Patient is agreeable to go to jail Cultures negative, afebrile Constipation improved Vitals/I&O/Wt Last Vital Signs Temp 97.6 F 03/05/24 08:44 Pulse 70 03/05/24 08:44 Resp 20 H 03/05/24 08:44 BP 147/74 03/05/24 08:44 Pulse Ox 100 03/05/24 08:44 O2 Del Method Room Air 03/05/24 08:44 03/04/24 03/05/24 03/05/24 22:59 06:59 14:59 Intake Total 690 / 1100 800 / 1900 360 / 360 Output Total 600 / 600 800 / 1400 Balance 90 / 500 0 / 500 360 / 360 Weight last 48 hrs Weight 114.56 kg Weight 113.081 kg Physical Exam 2 Narrative: Patient in supine 91 over Nonfocal S1, S2 Right below-knee potation Abdomen soft GCS 15 Pleasant cough Data 03/05/24 06:59 03/05/24 06:59 Micro: Microbiology 03/01/24 19:11 Gram Stain - Final Leg - Wound Anaerobic Culture - Preliminary Wound Culture - Final A&P Assessment and plan (1) Type 2 diabetes mellitus: (2) Hyperglycemia: (3) Constipation: (4) Increased anion gap metabolic acidosis: (5) Leukocytosis: (6) Necrotizing fasciitis: (7) Necrotizing soft tissue infection: (8) Below knee amputation: Qualifiers: Encounter type: initial encounter Laterality: right Qualified Code(s): S88.111A - Complete traumatic amputation at level between knee and ankle, right lower leg, initial encounter Plan Change IV antibiotics to p.o. regimen Continue opioids Constipation relieved Plan to discharge on Wednesday Discontinue IV fluids DVT prophylaxis on board Attestations 2 Medical Necessity Statement*: Discharge tomorrow Diagnoses Type 2 diabetes mellitus E11.9 Hyperglycemia R73.9 Constipation K59.00 Increased anion gap metabolic acidosis E87.29 Leukocytosis D72.829 Necrotizing fasciitis M72.6 Necrotizing soft tissue infection M79.89 Below-knee amputation of right lower extremity, initial encounter S88.111A Encounter type: initial encounter Laterality: right
[2024-03-05 16:21] LABS: Glucose Point of Care 308 mg/dL (70-110)
[2024-03-05] MEDS: doxycycline 100 mg Tablet PO (17:21)
[2024-03-05] MEDS: sennosides-docusate Tablet 2 TAB PO (17:21)
[2024-03-05] MEDS: amoxicillin-clav 875-125 mg Tablet 1 TAB PO (17:21)
[2024-03-05 21:00] LABS: Glucose Point of Care 241 mg/dL (70-110)
[2024-03-05] MEDS: insulin glargine 100 units/1 mL 30 UNIT SUBCUT (21:19)
[2024-03-05] MEDS: pantoprazole 40 mg SDV IVP (21:19)
[2024-03-06 04:25] VITALS: BP 145/81; PULSE 70; RESP 18; TEMP 37.1; O2SAT 98
[2024-03-06] MEDS: enoxaparin 40 mg/0.4 mL Syringe SUBCUT (05:53)
[2024-03-06 06:32] LABS: Glucose Point of Care 123 mg/dL (70-110)
[2024-03-06 07:34] VITALS: BP 153/71; PULSE 75; RESP 18; TEMP 36.7; O2SAT 96
[2024-03-06] MEDS: sennosides-docusate Tablet 2 TAB PO ×2 (08:40→18:13)
[2024-03-06] MEDS: doxycycline 100 mg Tablet PO ×2 (08:40→18:14)
[2024-03-06] MEDS: amoxicillin-clav 875-125 mg Tablet 1 TAB PO ×2 (08:40→18:14)
[2024-03-06] MEDS: aspirin 81 mg Chew Tablet PO (08:40)
[2024-03-06] MEDS: lactulose oral liq 20 gm/30 mL UDC 10 GM PO (08:41)
--- NOTE | 2024-03-06 09:41 | PM.DCS ---
Discharge Providers Date of Admission: 03/01/24 18:41 Date of Discharge: March 06, 2024 Attending Provider at Admission: Pat Escamilla MD Attending Provider at Discharge: Pat Escamilla MD Primary Care Provider: KULWANT Velazquez Diagnoses at Discharge Discharge Diagnosis (1) Type 2 diabetes mellitus: Status: Acute (2) Hyperglycemia: Status: Acute (3) Constipation: Status: Acute (4) Increased anion gap metabolic acidosis: Status: Acute (5) Leukocytosis: Status: Acute (6) Necrotizing fasciitis: Status: Acute (7) Necrotizing soft tissue infection: Status: Acute (8) Below knee amputation: Status: Acute Qualifiers: Encounter type: initial encounter Laterality: right Qualified Code(s): S88.111A - Complete traumatic amputation at level between knee and ankle, right lower leg, initial encounter Reason for Visit Reason for Visit: weakness Hospital Course Hospital Course 69-year-old male with poorly controlled diabetes, presented with chief complaint of sepsis, he was diagnosed with necrotizing fasciitis of right leg, Dr. Jackson took him to the OR right away for right below-knee amputation after getting consent, postoperatively patient did well, we were able to get him out of ICU to [facility], he did well with PT recommended senior care placement for short-term rehab, patient significant leukocytosis improved with use of IV antibiotics, cultures negative, we have decided to keep him on oral antibiotics at the time of discharge is being discharged with stable hemodynamics, he may follow-up with Dr. Jackson 2 weeks after his surgery. During hospitalization he was experiencing constipation which got better with use of aggressive bowel regimen. Physical Exam Narrative: Awake and alert Euvolemic GCS 15 Nonfocal neuroexam Currently on room air Using a walker Discharge Data Studies Completed and Pending Completed Studies During Hospitalization Category Date Time Status CT abdomen pelvis w con* 69167 Stat Cat Scan 03/01/24 13:[address] head wo con* [id number] Stat Cat Scan 03/01/24 12:[address] lower leg RT wo con* [id number] Stat Cat Scan 03/01/24 16:[address] neck w con* [id number] Stat Cat Scan 03/01/24 12:45 Completed XR chest 1V portable [id number] Stat Exams 03/01/24 12:44 Completed XR foot RT min 3V* [id number] Stat Exams 03/01/24 16:04 Completed Pending at discharge Category Date Time Status Anaerobic Culture Routine Lab 03/01/24 19:11 Results Blood Culture Stat Lab 03/01/24 13:18 Results Wound Culture and Gram Stain Routine Lab 03/01/24 19:11 Results Pathology: Surgical [PTH] Routine Pth 03/01/24 20:00 Received Radiology Impressions Chest X-Ray 03/01/24 12:44 IMPRESSION: No acute disease. Head CT 03/01/24 12:44 IMPRESSION: 1. No acute intracranial hemorrhage or edema. 2. No prior infarct. 3. Advanced calcification in the distal vertebral and carotid arteries. Neck CT 03/01/24 12:45 IMPRESSION: Reidentified is a soft tissue mass centered within the mandibular symphysis with extension to encase several of the incisors. Very similar in appearance to the prior CT of 07/22/2023. No obvious progression. Level 2 and level 1 lymph nodes have decreased in size since the prior PET/CT of 07/22/2023. There are no new or enlarging lymph nodes. No compromise of the airway. Abdomen/Pelvis CT 03/01/24 13:31 IMPRESSION: 1. Bilateral perinephric stranding. There is no renal obstruction or abscess. Correlate for pyelonephritis. 2. New RIGHT inguinal lymph nodes. These lymph nodes are enlarged and hyperemic. New since the PET/CT of 07/22/2023. Suspicious for neoplastic versus reactive adenopathy. 3. No metastatic disease to the liver. 4. There is a soft tissue mass in the LEFT upper abdomen which is similar attenuation and enhancement of the adjacent spleen. This may be a large splenule. This is inseparable from the pancreas. No interval increase in size since 07/22/2023. 5. Soft tissue anasarca. 6. Bilateral renal cysts. 7. Constipation. Notified Donnell Saab MD at 03/01/2024 3:34 PM. Foot X-Ray 03/01/24 16:04 IMPRESSION: 1. Possible osteomyelitis of the 2nd toe. Probable extensive soft tissue infection. Consider MRI to evaluate this further. 2. Additional details as above. Lower Extremity CT 03/01/24 16:10 IMPRESSION: 1. Soft tissue ulceration of the plantar aspect of the forefoot subjacent to the 2nd toe with gas-forming infection and intraosseous air within the proximal phalanx suggestive of gangrene/osteomyelitis. There is possible involvement of the 2nd metatarsophalangeal joint. MRI of the right foot is recommended. Laboratory Results WBC 9.04 10^3/uL (3.29-11.43) 03/05/24 06:59 RBC 3.48 10^6/uL (3.85-5.65) L 03/05/24 06:59 Hgb 9.80 g/dL (11.27-16.99) L 03/05/24 06:59 Hct 31.1 % (37-53) L 03/05/24 06:59 MCV 89.4 fl (82-101) 03/05/24 06:59 MCH 28.2 pg (27-33) 03/05/24 06:59 MCHC 31.5 g/dL (30-55) 03/05/24 06:59 RDW 13.2 % (12.1-15.1) 03/05/24 06:59 Plt Count 389 10^3/cmm (157-399) 03/05/24 06:59 MPV 9.7 fL (7.4-10.4) 03/05/24 06:59 Neut % (Auto) 66.6 % 03/05/24 06:59 Lymph % (Auto) 17.3 % 03/05/24 06:59 [place] % (Auto) 10.8 % 03/05/24 06:59 Eos % (Auto) 3.2 % 03/05/24 06:59 Baso % (Auto) 0.8 % 03/05/24 06:59 Neut # (Auto) 6.02 10^3/uL (1.8-7.7) 03/05/24 06:59 Lymph # (Auto) 1.6 10^3/uL (0.8-4.8) 03/05/24 06:59 [place] # (Auto) 1.0 10^3/uL (0.2-0.9) H 03/05/24 06:59 Eos # (Auto) 0.3 10^3/uL (0.0-0.8) 03/05/24 06:59 Baso # (Auto) 0.1 10^3/uL (0.0-0.1) 03/05/24 06:59 Nucleated RBC % (auto) 0 % 03/05/24 06:59 Nucleated RBCs # 0.0 /100WBC 03/05/24 06:59 ESR 86 mm/hr (0-10) H 03/01/24 13:10 PT 17.60 SECONDS (12.1-14.9) H 03/01/24 13:10 INR 1.40 (0.8-1.2) H 03/01/24 13:10 Specimen Type Arterial 03/01/24 22:10 Sample Site Radial, right 03/01/24 22:10 ABG pH 7.34 (7.35-7.45) L 03/01/24 22:10 ABG pCO2 28.2 mmHg (35-45) L 03/01/24 22:10 ABG pO2 88.5 mmHg (80.0-100.0) 03/01/24 22:10 ABG PO2/FiO2 Ratio 0 03/01/24 22:10 ABG HCO3 15.3 mmol/L (22-26) L 03/01/24 22:10 ABG Base Excess -9.2 mmol/L (-2.0-2.0) L 03/01/24 22:10 [place] Test Pos 03/01/24 22:10 Hematocrit 35.2 % (42-52) L 03/01/24 22:10 O2 Delivery Device None 03/01/24 22:10 FiO2 21.0 % 03/01/24 22:10 Laundry Machine Mechanic ID [place] 03/01/24 22:10 Sodium 131 mmol/L (136-145) L 03/05/24 06:59 Potassium 3.5 mmol/L (3.5-5.1) 03/05/24 06:59 Chloride 99 mmol/L (98-107) 03/05/24 06:59 Carbon Dioxide 24 mmol/L (22-29) 03/05/24 06:59 Anion Gap 11.5 (5-19) 03/05/24 06:59 BUN 8 mg/dL (8-23) 03/05/24 06:59 Creatinine 0.6 mg/dL (0.7-1.2) L 03/05/24 06:59 GFR Calculation 134.4 mL/min (90-130) H 03/05/24 06:59 Glucose 147 mg/dL (65-115) H 05/12/24 06:59 POC Glucose 123 mg/dL (70-110) H 03/06/24 06:24 Estimat Average Glucose 246 03/01/24 13:10 Hemoglobin A1c 10.2 % (4.0-6.0) H 03/01/24 13:10 Calculated Osmolality 273 mOsm/kg (285-295) L 03/05/24 06:59 Lactic Acid 1.6 mmol/L (0.5-2.2) 03/01/24 13:10 Calcium 7.9 mg/dL (8.5-10.5) L 03/05/24 06:59 Phosphorus 3.7 mg/dL (2.5-4.5) 03/01/24 19:24 Magnesium 2.2 mg/dL (1.7-2.3) 03/03/24 05:39 Total Bilirubin 0.7 mg/dL (0.15-1.2) 03/01/24 13:10 AST 13 U/L (0-40) 03/01/24 13:10 ALT 9 U/L (0-41) 03/01/24 13:10 Alkaline Phosphatase 188 U/L (40-130) H 03/01/24 13:10 C-Reactive Protein 324.5 mg/L (0.0-4.9) H 03/01/24 13:10 Total Protein 7.6 g/dL (6.6-8.7) 03/01/24 13:10 Albumin 3.1 g/dL (3.5-5.2) L 03/01/24 13:10 Globulin 4.5 g/dL (1.3-4.6) 03/01/24 13:10 Triglycerides 72 mg/dL (0-150) 03/01/24 19:24 Cholesterol 121 mg/dL (0-200) 03/01/24 19:24 LDL Cholesterol, Calc 89 mg/dL (50-129) 03/01/24 19:24 HDL Cholesterol 18 mg/dL (60-100) L 03/01/24 19:24 LDL/HDL Ratio 4.94 RATIO (0.00-3.22) H 03/01/24 19:24 Cholesterol/HDL Ratio 6.72 mg/dL (1.0-5.00) H 03/01/24 19:24 Lipase 7 U/L (13-60) L 03/01/24 13:10 TSH 2.60 uIU/mL (0.27-4.20) 03/01/24 19:24 Urine Color Yellow (Yellow) 03/01/24 13:56 Urine Appearance Clear (CLEAR) 03/01/24 13:56 Urine pH 5 (5-7) 03/01/24 13:56 Ur Specific [place] 1.015 (1.005-1.030) 03/01/24 13:56 Urine Protein Neg (Negative) 03/01/24 13:56 Urine Glucose (UA) 4+ (Normal) H 03/01/24 13:56 Urine Ketones 2+ (Negative) H 03/01/24 13:56 Urine Blood Neg (Negative) 03/01/24 13:56 Urine Nitrate Negative (Negative) 03/01/24 13:56 Urine Bilirubin Neg (Negative) 03/01/24 13:56 Urine Urobilinogen Neg mg/dL (Negative) 03/01/24 13:56 Ur Leukocyte Esterase Negative (Negative) 03/01/24 13:56 Vancomycin Trough 14.9 ug/mL (10-15) 03/03/24 14:25 Serum Ketones Positive (Negative) H 03/01/24 19:24 Hep Bs Antigen Non-reactive (Nonreactive) 03/01/24 19:24 Hep Bs Antibody < 3.5 (11.5-1000) L 03/01/24 19:24 Hepatitis C Antibody Non-reactive (Nonreactive) 03/01/24 19:24 HIV 1&2 Ab & HIV 1 Ag Non-reactive (Non-Reactiv) 03/01/24 19:24 HIV 1&2 Antibody Non-reactive (Non-Reactiv) 03/01/24 19:24 Vitals Last Vital Signs Temp 98.0 F 03/06/24 07:34 Pulse 75 03/06/24 07:34 Resp 18 03/06/24 07:34 BP 153/71 03/06/24 07:34 Pulse Ox 96 03/06/24 07:34 O2 Del Method Room Air 03/06/24 07:34 Discharge Plan Discharge Patient Disposition: Xfer [facility] Condition: Stable Prescriptions: New doxycycline monohydrate 100 mg Tablet 100 mg PO BID Qty: 10 0RF insulin glargine [Lantus U-100 Insulin] 100 unit/mL Solution 30 unit SUBCUT BEDTIME Qty: 10 6RF sennosides-docusate sodium [Stool Softener-Laxative] 8.6-50 mg Tablet 2 tab PO BID PRN (Reason: Constipation) Qty: 10 0RF Continued metformin 1,000 mg tablet 500 mg PO BID lisinopril 20 mg tablet 20 mg PO DAILY aspirin 81 mg Capsule 81 mg PO DAILY Hold Instructions: Resume on 06/25/23. Novolin N NPH U-100 Insulin 100 unit/mL suspension 45 unit SUBCUT DAILY amoxicillin-pot clavulanate 875-125 mg tablet 1 tab PO BID Qty: 10 0RF Discontinued glyburide 5 mg tablet 5 mg PO BID Discharge Orders: Discharge Order (Routine); Ordered 03/06/24 Ordered By: Pat Escamilla Referrals: Shannon Calle FNP [Primary Care Provider] - Zackary Jackson DO [Physician] - 2 weeks Discharge Diet: Diabetic Activity Restrictions/Additional Instructions: Keep dressing on until seen in clinic. Follow-up in orthopedic clinic in 2 weeks Nonweightbearing on right lower extremity Keep dressing clean dry and intact Discharge Attestations Time Spent in Discharge Care*: greater than 30 min Quality Metrics Clinical Quality Measures [ No reported AMI, CVA or VTE this stay] Coding Level of Care Code Acute Code for Chg Fwd Diagnoses Type 2 diabetes mellitus E11.9 Hyperglycemia R73.9 Constipation K59.00 Increased anion gap metabolic acidosis E87.29 Leukocytosis D72.829 Necrotizing fasciitis M72.6 Necrotizing soft tissue infection M79.89 Below-knee amputation of right lower extremity, initial encounter S88.111A Encounter type: initial encounter Laterality: right
--- NOTE | 2024-03-06 10:35 | P.PN_ITS ---
Subjective 2 Subjective: Level 2 authorization needed Constipation resolved Working with PT No active suicidal homicidal ideation Patient is getting anxious staying in the hospital Afebrile On oral antibiotics Vitals/I&O/Wt Last Vital Signs Temp 98.0 F 03/06/24 07:34 Pulse 75 03/06/24 07:34 Resp 18 03/06/24 07:34 BP 153/71 03/06/24 07:34 Pulse Ox 96 03/06/24 07:34 O2 Del Method Room Air 03/06/24 07:34 03/05/24 03/06/24 03/06/24 22:59 06:59 14:59 Intake Total 480 / 1370 360 / 360 Output Total 600 / 600 2750 / 3350 700 / 700 Balance -120 / 770 -2750 / -1980 -340 / -340 Weight last 48 hrs Weight 111.584 kg Weight 114.56 kg Physical Exam 2 Narrative: Awake and alert Lower lip lesion no acute worsening Right leg covered with dressing Pleasant 5 Nonfocal neuroexam Hypertensive Currently on room air Abdomen soft Data 03/05/24 06:59 03/05/24 06:59 Micro: Microbiology 03/01/24 19:11 Gram Stain - Final Leg - Wound Anaerobic Culture - Preliminary Wound Culture - Final A&P Assessment and plan (1) Type 2 diabetes mellitus: (2) Hyperglycemia: (3) Lesion of mouth: (4) Constipation: (5) Increased anion gap metabolic acidosis: (6) Leukocytosis: (7) Necrotizing fasciitis: (8) Below knee amputation: Qualifiers: Encounter type: initial encounter Laterality: right Qualified Code(s): S88.111A - Complete traumatic amputation at level between knee and ankle, right lower leg, initial encounter (9) Weakness: Plan Plan to discharge once he gets level 2 authorization Constipation resolved Added amlodipine to hypertensive regimen IV antibiotics changed to p.o. Awaiting placement Increase the dose of Lantus Patient getting anxious thing in the hospital Unfortunately level 2 authorization takes time. DVT prophylaxis on board Attestations 2 Medical Necessity Statement*: Continue medical management Diagnoses Type 2 diabetes mellitus E11.9 Hyperglycemia R73.9 Lesion of mouth K13.70 Constipation K59.00 Increased anion gap metabolic acidosis E87.29 Leukocytosis D72.829 Necrotizing fasciitis M72.6 Below-knee amputation of right lower extremity, initial encounter S88.111A Encounter type: initial encounter Laterality: right Weakness R53.1
[2024-03-06] MEDS: amlodipine 10 mg Tablet PO (11:05)
[2024-03-06 11:32] LABS: Glucose Point of Care 288 mg/dL (70-110)
[2024-03-06 12:00] VITALS: BP 144/65; PULSE 74; RESP 18; TEMP 36.6; O2SAT 97
[2024-03-06] MEDS: insulin lispro 100 unit/1 mL SUBCUT ×2 (13:00→18:14)
[2024-03-06 13:01] VITALS: RESP 17
[2024-03-06] MEDS: oxyCODONE 5 mg IR Tab/Cap 10 MG PO (13:01)
--- NOTE | 2024-03-06 14:24 | PC.SOCIAL ---
IMM Updated Updated pt on IMM. No questions voiced. Provided pt a copy. Initialed, dated, & timed copy in chart.
[2024-03-06 16:00] VITALS: BP 118/68; PULSE 68; RESP 18; TEMP 37; O2SAT 97
[2024-03-06 16:00] LABS: Glucose Point of Care 231 mg/dL (70-110)
[2024-03-06 20:00] VITALS: BP 139/70; PULSE 77; RESP 18; TEMP 37.1; O2SAT 100
[2024-03-06] MEDS: pantoprazole 40 mg SDV IVP (21:07)
[2024-03-06 21:08] LABS: Glucose Point of Care 224 mg/dL (70-110)
[2024-03-06] MEDS: insulin glargine 100 units/1 mL 35 UNIT SUBCUT (21:54)
[2024-03-07] VITALS: BP 129/64; PULSE 77; RESP 17; TEMP 36.4; O2SAT 98
[2024-03-07 04:00] VITALS: BP 133/65; PULSE 68; RESP 18; TEMP 36.7; O2SAT 97
[2024-03-07] MEDS: enoxaparin 40 mg/0.4 mL Syringe SUBCUT (06:17)
[2024-03-07 07:26] VITALS: BP 161/71; PULSE 67; RESP 18; TEMP 36.3; O2SAT 99
[2024-03-07] MEDS: amoxicillin-clav 875-125 mg Tablet 1 TAB PO ×2 (09:24→17:45)
[2024-03-07] MEDS: doxycycline 100 mg Tablet PO ×2 (09:24→17:45)
[2024-03-07] MEDS: amlodipine 10 mg Tablet PO (09:25)
[2024-03-07] MEDS: aspirin 81 mg Chew Tablet PO (09:25)
[2024-03-07] MEDS: sennosides-docusate Tablet 2 TAB PO ×2 (09:25→17:45)
[2024-03-07] MEDS: lactulose oral liq 20 gm/30 mL UDC 10 GM PO (09:25)
[2024-03-07] MEDS: insulin lispro 100 unit/1 mL SUBCUT ×3 (10:36→17:45)
[2024-03-07 11:47] VITALS: BP 154/66; PULSE 77; RESP 19; TEMP 36.7; O2SAT 98
--- NOTE | 2024-03-07 12:50 | P.PN_ITS ---
Subjective 2 Subjective: Patient is doing well He was worried about the dressing change right below-knee amputation Otherwise no active complaints Constipation resolved Brother is at the bedside Awaiting level 2 authorization Vitals/I&O/Wt Last Vital Signs Temp 98.0 F 03/07/24 11:47 Pulse 77 03/07/24 11:47 Resp 19 H 03/07/24 11:47 BP 154/66 03/07/24 11:47 Pulse Ox 98 03/07/24 11:47 O2 Del Method Room Air 03/07/24 11:47 03/06/24 03/07/24 03/07/24 22:59 06:59 14:59 Intake Total 1250 / 1970 240 / 2210 480 / 480 Output Total 1250 / 2400 1150 / 3550 1350 / 1350 Balance 0 / -430 -910 / -1340 -870 / -870 Weight last 48 hrs Weight 110.677 kg Weight 111.584 kg Physical Exam 2 Narrative: Pleasant cough Sitting at the bedside Nonfocal neuroexam Currently on room air Hypertensive No active complaints Right dressing not soaked with any kind of fluid or discharge No active pain Pleasant cooperative S1, S2 Data 03/05/24 06:59 03/05/24 06:59 Micro: Microbiology 03/01/24 13:18 Blood Culture - Final Blood NO GROWTH AFTER 5 DAYS 03/01/24 13:10 Blood Culture - Final Blood NO GROWTH AFTER 5 DAYS 03/01/24 19:11 Gram Stain - Final Leg - Wound Anaerobic Culture - Preliminary Wound Culture - Final A&P Assessment and plan (1) Type 2 diabetes mellitus: (2) Constipation: (3) Increased anion gap metabolic acidosis: (4) Leukocytosis: (5) Necrotizing fasciitis: (6) Below knee amputation: Qualifiers: Encounter type: initial encounter Laterality: right Qualified Code(s): S88.111A - Complete traumatic amputation at level between knee and ankle, right lower leg, initial encounter (7) Weakness: Plan Awaiting level 2 authorization Continue medical management Continue Augmentin and doxycycline DVT prophylaxis hold Attestations 2 Medical Necessity Statement*: Continue medical management Diagnoses Type 2 diabetes mellitus E11.9 Constipation K59.00 Increased anion gap metabolic acidosis E87.29 Leukocytosis D72.829 Necrotizing fasciitis M72.6 Below-knee amputation of right lower extremity, initial encounter S88.111A Encounter type: initial encounter Laterality: right Weakness R53.1
[2024-03-07 16:56] VITALS: BP 160/72; PULSE 74; RESP 20; TEMP 36.8; O2SAT 100
[2024-03-07] MEDS: oxyCODONE 5 mg IR Tab/Cap 10 MG PO (17:49)
[2024-03-07 20:00] VITALS: BP 139/65; PULSE 90; RESP 17; TEMP 36.8; O2SAT 98
[2024-03-07] MEDS: insulin glargine 100 units/1 mL 35 UNIT SUBCUT (21:22)
[2024-03-07] MEDS: pantoprazole 40 mg SDV IVP (23:20)
[2024-03-08] VITALS: BP 128/72; PULSE 68; RESP 18; TEMP 36.5; O2SAT 98
[2024-03-08 03:47] LABS: Glucose Point of Care 129 mg/dL (70-110)
[2024-03-08 03:47] LABS: Glucose Point of Care 184 mg/dL (70-110)
[2024-03-08 03:47] LABS: Glucose Point of Care 201 mg/dL (70-110)
[2024-03-08 03:47] LABS: Glucose Point of Care 166 mg/dL (70-110)
[2024-03-08 03:48] LABS: Glucose Point of Care 260 mg/dL (70-110)
[2024-03-08 04:00] VITALS: BP 157/69; PULSE 79; RESP 18; TEMP 36.4; O2SAT 98
[2024-03-08 06:43] LABS: Glucose Point of Care 154 mg/dL (70-110)
[2024-03-08 08:00] VITALS: BP 133/65; PULSE 77; RESP 18; TEMP 36.6; O2SAT 98
[2024-03-08] MEDS: amoxicillin-clav 875-125 mg Tablet 1 TAB PO (08:29)
[2024-03-08] MEDS: doxycycline 100 mg Tablet PO (08:29)
[2024-03-08] MEDS: lactulose oral liq 20 gm/30 mL UDC 10 GM PO (08:29)
[2024-03-08] MEDS: sennosides-docusate Tablet 2 TAB PO (08:29)
[2024-03-08] MEDS: insulin lispro 100 unit/1 mL SUBCUT ×2 (08:29→12:30)
[2024-03-08] MEDS: amlodipine 10 mg Tablet PO (08:29)
[2024-03-08] MEDS: aspirin 81 mg Chew Tablet PO (08:29)
--- NOTE | 2024-03-08 09:10 | PM.DCS ---
Discharge Providers Date of Admission: 03/01/24 18:41 Date of Discharge: March 08, 2024 Attending Provider at Admission: Pat Escamilla MD Attending Provider at Discharge: Pat Escamilla MD Primary Care Provider: KULWANT eVlazquez Diagnoses at Discharge Discharge Diagnosis (1) Type 2 diabetes mellitus: Status: Acute (2) Constipation: Status: Acute (3) Increased anion gap metabolic acidosis: Status: Acute (4) Leukocytosis: Status: Acute (5) Necrotizing fasciitis: Status: Acute (6) Below knee amputation: Status: Acute Qualifiers: Encounter type: initial encounter Laterality: right Qualified Code(s): S88.111A - Complete traumatic amputation at level between knee and ankle, right lower leg, initial encounter (7) Weakness: Status: Acute Reason for Visit Reason for Visit: weakness Hospital Course Hospital Course 69-year-old male with poorly controlled diabetes, presented with chief complaint of sepsis, he was diagnosed with necrotizing fasciitis of right leg, Dr. Jackson took him to the OR right away for right below-knee amputation after getting consent, postoperatively patient did well, we were able to get him out of ICU to [facility], he did well with PT recommended residential placement for short-term rehab, patient significant leukocytosis improved with use of IV antibiotics, cultures negative, we have decided to keep him on oral antibiotics at the time of discharge is being discharged with stable hemodynamics, he may follow-up with Dr. Jackson 2 weeks after his surgery. During hospitalization he was experiencing constipation which got better with use of aggressive bowel regimen. Patient required level 2 authorization because of his suicidal ideation, he was evaluated by a psychiatrist who cleared him to go to rehab/residential. Patient is not showing any signs of active suicidal or homicidal ideation. Physical Exam Narrative: Pleasant cough Sitting at the bedside Nonfocal neuroexam Currently on room air Hypertensive No active complaints Rightbka dressing not soaked with any kind of fluid or discharge No active pain Pleasant cooperative S1, S2 Discharge Data Studies Completed and Pending Completed Studies During Hospitalization Category Date Time Status CT abdomen pelvis w con* [id number] Stat Cat Scan 03/01/24 13:[address] head wo con* [id number] Stat Cat Scan 03/01/24 12:[address] lower leg RT wo con* [id number] Stat Cat Scan 03/01/24 16:[address] neck w con* [id number] Stat Cat Scan 03/01/24 12:45 Completed XR chest 1V portable [id number] Stat Exams 03/01/24 12:44 Completed XR foot RT min 3V* [id number] Stat Exams 03/01/24 16:04 Completed Pending at discharge Category Date Time Status Anaerobic Culture Routine Lab 03/01/24 19:11 Results Wound Culture and Gram Stain Routine Lab 03/01/24 19:11 Results Pathology: Surgical [PTH] Routine Pth 03/01/24 20:00 Received Radiology Impressions Chest X-Ray 03/01/24 12:44 IMPRESSION: No acute disease. Head CT 03/01/24 12:44 IMPRESSION: 1. No acute intracranial hemorrhage or edema. 2. No prior infarct. 3. Advanced calcification in the distal vertebral and carotid arteries. Neck CT 03/01/24 12:45 IMPRESSION: Reidentified is a soft tissue mass centered within the mandibular symphysis with extension to encase several of the incisors. Very similar in appearance to the prior CT of 07/22/2023. No obvious progression. Level 2 and level 1 lymph nodes have decreased in size since the prior PET/CT of 07/22/2023. There are no new or enlarging lymph nodes. No compromise of the airway. Abdomen/Pelvis CT 03/01/24 13:31 IMPRESSION: 1. Bilateral perinephric stranding. There is no renal obstruction or abscess. Correlate for pyelonephritis. 2. New RIGHT inguinal lymph nodes. These lymph nodes are enlarged and hyperemic. New since the PET/CT of 07/22/2023. Suspicious for neoplastic versus reactive adenopathy. 3. No metastatic disease to the liver. 4. There is a soft tissue mass in the LEFT upper abdomen which is similar attenuation and enhancement of the adjacent spleen. This may be a large splenule. This is inseparable from the pancreas. No interval increase in size since 07/22/2023. 5. Soft tissue anasarca. 6. Bilateral renal cysts. 7. Constipation. Notified Donnell Saab MD at 03/01/2024 3:34 PM. Foot X-Ray 03/01/24 16:04 IMPRESSION: 1. Possible osteomyelitis of the 2nd toe. Probable extensive soft tissue infection. Consider MRI to evaluate this further. 2. Additional details as above. Lower Extremity CT 03/01/24 16:10 IMPRESSION: 1. Soft tissue ulceration of the plantar aspect of the forefoot subjacent to the 2nd toe with gas-forming infection and intraosseous air within the proximal phalanx suggestive of gangrene/osteomyelitis. There is possible involvement of the 2nd metatarsophalangeal joint. MRI of the right foot is recommended. Laboratory Results WBC 9.04 10^3/uL (3.29-11.43) 03/05/24 06:59 RBC 3.48 10^6/uL (3.85-5.65) L 03/05/24 06:59 Hgb 9.80 g/dL (11.27-16.99) L 03/05/24 06:59 Hct 31.1 % (37-53) L 03/05/24 06:59 MCV 89.4 fl (82-101) 03/05/24 06:59 MCH 28.2 pg (27-33) 03/05/24 06:59 MCHC 31.5 g/dL (30-55) 03/05/24 06:59 RDW 13.2 % (12.1-15.1) 03/05/24 06:59 Plt Count 389 10^3/cmm (157-399) 03/05/24 06:59 MPV 9.7 fL (7.4-10.4) 03/05/24 06:59 Neut % (Auto) 66.6 % 03/05/24 06:59 Lymph % (Auto) 17.3 % 03/05/24 06:59 [place] % (Auto) 10.8 % 03/05/24 06:59 Eos % (Auto) 3.2 % 03/05/24 06:59 Baso % (Auto) 0.8 % 03/05/24 06:59 Neut # (Auto) 6.02 10^3/uL (1.8-7.7) 03/05/24 06:59 Lymph # (Auto) 1.6 10^3/uL (0.8-4.8) 03/05/24 06:59 [place] # (Auto) 1.0 10^3/uL (0.2-0.9) H 03/05/24 06:59 Eos # (Auto) 0.3 10^3/uL (0.0-0.8) 03/05/24 06:59 Baso # (Auto) 0.1 10^3/uL (0.0-0.1) 03/05/24 06:59 Nucleated RBC % (auto) 0 % 03/05/24 06:59 Nucleated RBCs # 0.0 /100WBC 03/05/24 06:59 ESR 86 mm/hr (0-10) H 03/01/24 13:10 PT 17.60 SECONDS (12.1-14.9) H 03/01/24 13:10 INR 1.40 (0.8-1.2) H 03/01/24 13:10 Specimen Type Arterial 03/01/24 22:10 Sample Site Radial, right 03/01/24 22:10 ABG pH 7.34 (7.35-7.45) L 03/01/24 22:10 ABG pCO2 28.2 mmHg (35-45) L 03/01/24 22:10 ABG pO2 88.5 mmHg (80.0-100.0) 03/01/24 22:10 ABG PO2/FiO2 Ratio 0 03/01/24 22:10 ABG HCO3 15.3 mmol/L (22-26) L 03/01/24 22:10 ABG Base Excess -9.2 mmol/L (-2.0-2.0) L 03/01/24 22:10 [place] Test Pos 03/01/24 22:10 Hematocrit 35.2 % (42-52) L 03/01/24 22:10 O2 Delivery Device None 03/01/24 22:10 FiO2 21.0 % 03/01/24 22:10 Auditor In Charge ID [place] 03/01/24 22:10 Sodium 131 mmol/L (136-145) L 03/05/24 06:59 Potassium 3.5 mmol/L (3.5-5.1) 03/05/24 06:59 Chloride 99 mmol/L (98-107) 03/05/24 06:59 Carbon Dioxide 24 mmol/L (22-29) 03/05/24 06:59 Anion Gap 11.5 (5-19) 03/05/24 06:59 BUN 8 mg/dL (8-23) 03/05/24 06:59 Creatinine 0.6 mg/dL (0.7-1.2) L 03/05/24 06:59 GFR Calculation 134.4 mL/min (90-130) H 03/05/24 06:59 Glucose 147 mg/dL (65-115) H 03/05/24 06:59 POC Glucose 154 mg/dL (70-110) H 03/08/24 06:30 Estimat Average Glucose 246 03/01/24 13:10 Hemoglobin A1c 10.2 % (4.0-6.0) H 03/01/24 13:10 Calculated Osmolality 273 mOsm/kg (285-295) L 03/05/24 06:59 Lactic Acid 1.6 mmol/L (0.5-2.2) 03/01/24 13:10 Calcium 7.9 mg/dL (8.5-10.5) L 03/05/24 06:59 Phosphorus 3.7 mg/dL (2.5-4.5) 03/01/24 19:24 Magnesium 2.2 mg/dL (1.7-2.3) 03/03/24 05:39 Total Bilirubin 0.7 mg/dL (0.15-1.2) 03/01/24 13:10 AST 13 U/L (0-40) 03/01/24 13:10 ALT 9 U/L (0-41) 03/01/24 13:10 Alkaline Phosphatase 188 U/L (40-130) H 03/01/24 13:10 C-Reactive Protein 324.5 mg/L (0.0-4.9) H 03/01/24 13:10 Total Protein 7.6 g/dL (6.6-8.7) 03/01/24 13:10 Albumin 3.1 g/dL (3.5-5.2) L 03/01/24 13:10 Globulin 4.5 g/dL (1.3-4.6) 03/01/24 13:10 Triglycerides 72 mg/dL (0-150) 03/01/24 19:24 Cholesterol 121 mg/dL (0-200) 03/01/24 19:24 LDL Cholesterol, Calc 89 mg/dL (50-129) 03/01/24 19:24 HDL Cholesterol 18 mg/dL (60-100) L 03/01/24 19:24 LDL/HDL Ratio 4.94 RATIO (0.00-3.22) H 03/01/24 19:24 Cholesterol/HDL Ratio 6.72 mg/dL (1.0-5.00) H 03/01/24 19:24 Lipase 7 U/L (13-60) L 03/01/24 13:10 TSH 2.60 uIU/mL (0.27-4.20) 03/01/24 19:24 Urine Color Yellow (Yellow) 03/01/24 13:56 Urine Appearance Clear (CLEAR) 03/01/24 13:56 Urine pH 5 (5-7) 03/01/24 13:56 Ur Specific [place] 1.015 (1.005-1.030) 03/01/24 13:56 Urine Protein Neg (Negative) 03/01/24 13:56 Urine Glucose (UA) 4+ (Normal) H 03/01/24 13:56 Urine Ketones 2+ (Negative) H 03/01/24 13:56 Urine Blood Neg (Negative) 03/01/24 13:56 Urine Nitrate Negative (Negative) 03/01/24 13:56 Urine Bilirubin Neg (Negative) 03/01/24 13:56 Urine Urobilinogen Neg mg/dL (Negative) 03/01/24 13:56 Ur Leukocyte Esterase Negative (Negative) 03/01/24 13:56 Vancomycin Trough 14.9 ug/mL (10-15) 03/03/24 14:25 Serum Ketones Positive (Negative) H 03/01/24 19:24 Hep Bs Antigen Non-reactive (Nonreactive) 03/01/24 19:24 Hep Bs Antibody < 3.5 (11.5-1000) L 03/01/24 19:24 Hepatitis C Antibody Non-reactive (Nonreactive) 03/01/24 19:24 HIV 1&2 Ab & HIV 1 Ag Non-reactive (Non-Reactiv) 03/01/24 19:24 HIV 1&2 Antibody Non-reactive (Non-Reactiv) 03/01/24 19:24 Vitals Last Vital Signs Temp 97.9 F 03/08/24 08:00 Pulse 77 03/08/24 08:00 Resp 18 03/08/24 08:00 BP 133/65 03/08/24 08:00 Pulse Ox 98 03/08/24 08:00 O2 Del Method Room Air 03/08/24 08:00 Discharge Plan Discharge Patient Disposition: Xfer SNF Condition: Stable Prescriptions: New Lantus U-100 Insulin 100 unit/mL Solution 30 unit SUBCUT BEDTIME Qty: 10 6RF doxycycline monohydrate 100 mg Tablet 100 mg PO BID Qty: 10 0RF Stool Softener-Laxative 8.6-50 mg Tablet 2 tab PO BID PRN (Reason: Constipation) Qty: 10 0RF amlodipine 10 mg tablet 10 mg PO DAILY Qty: 60 0RF Continued metformin 1,000 mg tablet 500 mg PO BID lisinopril 20 mg tablet 20 mg PO DAILY aspirin 81 mg Capsule 81 mg PO DAILY Hold Instructions: Resume on 06/25/23. amoxicillin-pot clavulanate 875-125 mg tablet 1 tab PO BID Qty: 10 0RF Novolin N NPH U-100 Insulin 100 unit/mL suspension 45 unit SUBCUT DAILY Discontinued glyburide 5 mg tablet 5 mg PO BID Discharge Orders: Discharge Order (Routine); Ordered 03/08/24 Ordered By: Pat Escamilla Referrals: [facility] [Outside] Zackary Jackson DO [Physician] - 03/21/24 9:00 am Discharge Diet: Diabetic Activity Restrictions/Additional Instructions: Keep dressing on until seen in clinic. Follow-up in orthopedic clinic in 2 weeks Nonweightbearing on right lower extremity Keep dressing clean dry and intact Discharge Attestations Time Spent in Discharge Care*: greater than 30 min Quality Metrics Clinical Quality Measures [ No reported AMI, CVA or VTE this stay] Coding Level of Care Code Acute Code for Chg Fwd Diagnoses Type 2 diabetes mellitus E11.9 Constipation K59.00 Increased anion gap metabolic acidosis E87.29 Leukocytosis D72.829 Necrotizing fasciitis M72.6 Below-knee amputation of right lower extremity, initial encounter S88.111A Encounter type: initial encounter Laterality: right Weakness R53.1
--- NOTE | 2024-03-08 09:38 | P.PN_ITS ---
Subjective 2 Subjective: Patient doing well dressing is clean dry and intact. Pain is tolerable Vitals/I&O/Wt Last Vital Signs Temp 97.9 F 03/08/24 08:00 Pulse 77 03/08/24 08:00 Resp 18 03/08/24 08:00 BP 133/65 03/08/24 08:00 Pulse Ox 98 03/08/24 08:00 O2 Del Method Room Air 03/08/24 08:00 03/07/24 03/08/24 03/08/24 22:59 06:59 14:59 Intake Total 1100 / 1580 200 / 1780 480 / 480 Output Total 1700 / 3050 1000 / 4050 Balance -600 / -1470 -800 / -2270 480 / 480 Weight last 48 hrs Weight 240 lb 4.8 oz Weight 244 lb Physical Exam 2 Narrative: Dressing clean dry and intact. Nurse will change today before he leaves. Data 03/05/24 06:59 03/05/24 06:59 A&P Assessment and plan (1) Below knee amputation: Patient is status post below the knee amputation Discharge planning Qualifiers: Encounter type: initial encounter Laterality: right Qualified Code(s): S88.111A - Complete traumatic amputation at level between knee and ankle, right lower leg, initial encounter Attestations 2 Medical Necessity Statement*: Per primary service Coding Level of Care Code Acute Code for Chg Fwd Diagnoses Below-knee amputation of right lower extremity, initial encounter S88.111A Encounter type: initial encounter Laterality: right
[2024-03-08 10:47] LABS: SARS Covid-2 Antigen negative (Negative)
[2024-03-08 11:31] LABS: Glucose Point of Care 217 mg/dL (70-110)
--- NOTE | 2024-03-08 11:45 | PC.SOCIAL ---
IMM updated Updated pt on IMM. No questions voiced. Provided pt a copy. Initialed, dated, & timed copy in chart.
[2024-03-08 12:00] VITALS: BP 161/71; PULSE 73; RESP 18; TEMP 36.6; O2SAT 100
[2024-03-08 12:27] VITALS: RESP 17
[2024-03-08] MEDS: oxyCODONE 5 mg IR Tab/Cap 10 MG PO (12:27)
== END 2024-03-08 13:28 | disposition skilled nursing facility (03) | DRG 239 ==
LOC: ER 17:21 → OR 17:23 → MEDSURG 18:41 → ICU 03-02 03:35 → MEDSURG 03-02 16:52
PROVIDERS: Family Medicine; Orthopaedic Surgery; Podiatrist Foot & Ankle Surgery; Admitting Provider Internal Medicine; Emergency Provider Emergency Medicine; PCP Nurse Practitioner Family; Visit Provider Internal Medicine
PROC: 0Y6H0Z1 Detachment at Right Lower Leg, High, Open Approach (ICD-10-PCS; CPT 27880; principal; 2024-03-01 18:30)
DX: E11.52 Type 2 diabetes mellitus with diabetic peripheral angiopathy with gangrene (principal); A48.0 Gas gangrene; E87.1 Hypo-osmolality and hyponatremia; L03.115 Cellulitis of right lower limb; E11.10 Type 2 diabetes mellitus with ketoacidosis without coma; I10 Essential (primary) hypertension; F17.220 Nicotine dependence, chewing tobacco, uncomplicated; L89.151 Pressure ulcer of sacral region, stage 1; R59.0 Localized enlarged lymph nodes; F32.A Depression, unspecified; K13.70 Unspecified lesions of oral mucosa; K59.00 Constipation, unspecified; L98.9 Disorder of the skin and subcutaneous tissue, unspecified; Z79.84 Long term (current) use of oral hypoglycemic drugs; Z79.4 Long term (current) use of insulin; Z79.82 Long term (current) use of aspirin; Z74.01 Bed confinement status; Z11.52 Encounter for screening for COVID-19
CPT/HCPCS: 36415; 36416; 36600; 70450; 70491; 71045; 73630; 73700; 74177; 80048; 80053; 80061; 80202; 81003; 82009; 82803; 82962; 83036; 83605; 83690; 83735; 84100; 84443; 85025; 85610; 85651; 86140; 86706; 86803; 87040; 87070; 87075; 87205; 87340; 87426; 87806; 88307; 88311; 93005; 96365; 96367; 96372; 96376; 97110; 97162; 97166; 97530; 97535; 99285; C9113; J1100; J1650; J1815; J2270; J2405; J2543; J2704; J2795; J3010; J3370; J3490; J7030; J7050; Q9967

== ENCOUNTER → 2024-03-21 08:39 | Outpatient (BNVA) | payer MEDICARE, SELFPAY | PROVIDERS: PCP Nurse Practitioner Family; Visit Provider Orthopaedic Surgery | DX: Z48.89 Encounter for other specified surgical aftercare (principal) | CPT/HCPCS: 99024 ==

== ENCOUNTER 2024-03-24 10:38 | Emergency (ER) | payer MEDICARE, SELFPAY ==
[2024-03-24 10:41] VITALS: BP 107/79; PULSE 81; RESP 16; O2SAT 94
--- NOTE | 2024-03-24 10:51 | XR_ITS ---
WS: [id number] Exam: XR knee RT 3V* [id number] Date/Time of Exam: 03/24/2024 11:10 AM Reason For Exam: amputation; recent fall/injury to stump Below-knee amputation is noted. There is a fracture of the distal end of the residual fibula without displacement. This might be related to recent trauma or the amputation itself. The residual tibia is intact. No sign of bone destruction. Edema of the amputation stump. The joints of the knee are relati vely well-maintained. The knee shows no sign of fracture otherwise. XR/XR knee RT 3V* [id number] IMPRESSION: 1. Fracture of the distal end of the residual LEFT fibula. This might be relate d to trauma or the amputation itself. No displacement. Soft tissue edema of the amputation stump.
--- NOTE | 2024-03-24 10:51 | ED_ITS ---
HPI - Extremity Problem General: Chief complaint: Wound/Laceration Stated complaint: fall, bleeding from wound Time Seen by Provider: 03/24/24 10:41 Source: patient Mode of arrival: wheelchair Limitations: no limitations History of Present Illness: Patient is a 69-year-old male who presents to ED today for evaluation of injury to his BKA stump following a fall. Patient underwent right BKA by Dr. Jackson on 03/01 for necrotizing fasciitis to his right foot. He has been ambulatory with a knee scooter. Patient last followed up with his surgeon 03/21. He had experienced a fall that day as well. He states during that fall he believes he had a stitch or 2 from the lateral aspect of his incision that busted open . Encounter with Dr. Jackson does not mention this. Patient states surgeon wanted to leave his sutures in for another week. He states he was trying to wheel his knee scooter onto concrete but states it got hung up on a small lip and tipped over. Patient states he landed onto the right stump. He has noticed some bleeding from the area. No further suture wound dehiscence apart from what he stated occurred 3 days ago on his prior fall. MD Complaint: other (stump injury) Onset (ago): hour(s) Location: right and knee Radiation: none Relieving factors: nothing Exacerbating factors: nothing Associated symptoms: Reports other (bleeding); Deny fever(s) Review of Systems Const: Denies: fever(s) Musc: Reports: extremity pain (R BKA stump/bleeding) Skin/Breast: Reports: other (sutures/bleeding from R BKA stump) [facility] ED PFSH: Medical History Constipation Below knee amputation Increased anion gap metabolic acidosis Hyperglycemia Necrotizing fasciitis Necrotizing soft tissue infection Gas gangrene Necrotizing fasciitis Cellulitis of foot, right Weakness Leukocytosis Hyponatremia Lymphadenopathy of head and neck region Skin lesion of face Lesion of mouth Necrotic wound of left hand Squamous cell carcinoma of oral cavity ? Type 2 diabetes mellitus Hypertension Family History Father Cancer lung cancer Mother CAD (coronary artery disease) Social History Smoking and tobacco/nicotine status: tobacco/nicotine user, details unknown smokeless tobacco Smokeless tobacco user: chewing tobacco Physical Exam Const: COMMON NORMALS: no acute distress, no limitations, alert and well nourished Extremity: NARRATIVE EXTREMITY EXAM: R BKA stump with sutures present; stump does not appear erythematous or inflamed; no warmth or drainage; he has some mild bloody oozing from middle of incision most likely from recent reported fall/trauma-no wound dehiscence here; he is missing what appears to be 2-3 sutures from lateral aspect of wound with dehiscence but he states this has been present since his fall 3 days ago Neuro: SENSORIUM/ORIENTATION: Yes alert Course Consultations: Consultation #1: Dr. Jackson-recommends wet to dry dressings and he will follow up in office Vital Signs: Vital signs: Vital Signs Pulse Rate 81 03/24/24 10:41 Respiratory Rate 16 03/24/24 10:41 Blood Pressure 107/79 03/24/24 10:41 Pulse Oximetry 94 03/24/24 10:41 Oxygen Delivery Me thod Room Air 03/24/24 10:41 MDM - Extremity (Nontraumatic) Medical Decision Making Patient is a 69-year-old male here following a fall/injury to his right BKA stump. He has some mild wound dehiscence to the lateral aspect. There is no infection. XR showing fracture of the distal end of the residual left fibula that could be related to recent trauma or recent amputation. Spoke to patient's surgeon, Dr. Jackson, who reviewed x-rays and pictures of the wound dehiscence. Recommend wet-to-dry dressings and he will see patient in clinic on 03/25 as currently scheduled. Return precautions given. Medical Records I reviewed the patient's medical records. Lab Data Radiology Impressions Knee X-Ray 03/24/24 10:51 IMPRESSION: 1. Fracture of the distal end of the residual LEFT fibula. This might be related to trauma or the amputation itself. No displacement. Soft tissue edema of the amputation stump. All radiology interpretation(s) finalized by discharge Discharge Plan Discharge Patient Disposition: Home Clinical Impression: Dehiscence of wound of skin Qualifiers: Encounter type: initial encounter Qualified Code(s): T81.30XA - Disruption of wound, unspecified, initial encounter Condition: Stable Prescriptions: No Action lisinopril 20 mg tablet 20 mg PO DAILY (DME) Knee scooter See Rx Instructions .Route .MEDSUPPLY Qty: 1 0RF Rx Instructions: As directed insulin glargine [Lantus U-100 Insulin] 100 unit/mL Solution 30 unit SUBCUT BEDTIME Qty: 10 6RF amlodipine 10 mg tablet 10 mg PO DAILY Qty: 60 0RF Novolin N NPH U-100 Insulin 100 unit/mL suspension 45 unit SUBCUT DAILY metformin 500 mg tablet 500 mg PO BID Aspir-81 81 mg Tablet,Delayed Release (Dr/Ec) 81 mg PO DAILY oxycodone 10 mg tablet 10 mg PO Q4H PRN (Reason: Pain) Discharge Orders: Discharge ED (Routine); Ordered 03/24/24 Ordered By: Vivienne Arnold Referrals: Shannon Calle FNP [Primary Care Provider] - Activity Restrictions/Additional Instructions: As we discussed please follow-up with Dr. Jackson on 03/28 as you are currently already scheduled. Continue to keep wound clean-you may do this with warm soapy water. Surgeon would also like you to start doing wet-to-dry dressings to your wound. Continue to monitor for infection such as redness, increased pain, purulent or odorous drainage, fevers, streaking up your leg, or any other concerns you may have-seek emergent medical evaluation if these occur. Coding Level of Care Code ED [employer]cher for Liseth Magallon
--- NOTE | 2024-03-24 11:26 | PC.PHAR ---
PT DIS[facility]GED [facility]-NO MEDICATIONS TAKEN FROM HOME YET EXCEPT THE OXYCODONE 10 MG FOR PAIN. PT HAS NEW MEDS READY AT THE PHARMACY. HE IS AWARE OF IT.
[2024-03-24 12:17] VITALS: RESP 16; O2SAT 95
--- NOTE | 2024-03-24 12:18 | PC.NURSE ---
Dressing to Wound: wet-to-dry dressing applied to RLE per CHAGO [place].
== END 2024-03-24 12:20 | disposition home or self-care (01) ==
PROVIDERS: Emergency Provider Physician Assistant; PCP Nurse Practitioner Family
DX: T87.81 Dehiscence of amputation stump (principal); Z79.4 Long term (current) use of insulin; Z79.84 Long term (current) use of oral hypoglycemic drugs; Z79.82 Long term (current) use of aspirin; F17.220 Nicotine dependence, chewing tobacco, uncomplicated; E11.9 Type 2 diabetes mellitus without complications; I10 Essential (primary) hypertension; Z89.511 Acquired absence of right leg below knee
CPT/HCPCS: 73562; 99283

== ENCOUNTER → 2024-03-28 11:03 | Outpatient (BNVA) | payer MEDICARE, SELFPAY | PROVIDERS: PCP Nurse Practitioner Family; Visit Provider Orthopaedic Surgery | DX: Z48.89 Encounter for other specified surgical aftercare (principal) | CPT/HCPCS: 99024; 99204 ==

== ENCOUNTER → 2024-04-10 14:10 | Outpatient (BNVA) | payer MEDICARE, SELFPAY | PROVIDERS: PCP Nurse Practitioner Family; Visit Provider Nurse Practitioner Family | DX: I96 Gangrene, not elsewhere classified (principal); T87.81 Dehiscence of amputation stump; Y83.8 Other surgical procedures as the cause of abnormal reaction of the patient, or of later complication, without mention of misadventure at the time of the procedure; Z89.511 Acquired absence of right leg below knee | CPT/HCPCS: 11042; 11045 ==

== ENCOUNTER → 2024-04-17 15:32 | Outpatient (BNVA) | payer MEDICARE, SELFPAY | PROVIDERS: PCP Nurse Practitioner Family; Visit Provider Nurse Practitioner Family | DX: T87.81 Dehiscence of amputation stump (principal); Y83.8 Other surgical procedures as the cause of abnormal reaction of the patient, or of later complication, without mention of misadventure at the time of the procedure; Z89.511 Acquired absence of right leg below knee | CPT/HCPCS: 11042; 11045; A6446 ==

== ENCOUNTER → 2024-04-18 10:26 | Outpatient (BNVA) | payer MEDICARE, SELFPAY | PROVIDERS: PCP Nurse Practitioner Family; Visit Provider Orthopaedic Surgery | DX: S88.111A Complete traumatic amputation at level between knee and ankle, right lower leg, initial encounter (principal); Y79.3 Surgical instruments, materials and orthopedic devices (including sutures) associated with adverse incidents | CPT/HCPCS: 99024 ==

== ENCOUNTER 2024-04-18 16:26 | Emergency (ER) | payer MEDICARE, SELFPAY ==
[2024-04-18 16:28] VITALS: BP 113/55; PULSE 77; TEMP 36.4; O2SAT 97; BMI 29.8
--- NOTE | 2024-04-18 16:51 | ED_ITS ---
HPI - Extremity Problem General: Chief complaint: Extremity Injury, Lower Stated complaint: Fall, Time Seen by Provider: 04/18/24 16:28 Source: patient and EMS Mode of arrival: EMS Limitations: no limitations History of Present Illness: 69-year-old male who is status post belo w the knee amputation he had a follow-up with his orthopedic today patient per the clinic was angry and upset there and then had fell out of the car and has dehisced his wound to his right leg. Patient here is answering my questions appropriately he is calm and cooperative he denies being suicidal or homicidal is no signs of psychosis here Associated symptoms: Deny chest pain, fever(s) or rash Review of Systems Const: Denies: fever(s), chills, body aches or change in appetite ENMT: Denies: throat pain or dental pain Card: Denies: chest pain Resp: Denies: dyspnea GI: Denies: abdominal pain, nausea, vomiting or diarrhea Musc: Reports: extremity pain; Denies: neck pain or back pain Skin/Breast: Denies: rash Psych: Denies: depression, suicidal ideation or homicidal ideation PFSH ED PFSH: Medical History Below knee amputation Type 2 diabetes mellitus Constipation Increased anion gap metabolic acidosis Hyperglycemia Necrotizing fasciitis Necrotizing soft tissue infection Gas gangrene Necrotizing fasciitis Cellulitis of foot, right Weakness Leukocytosis Hyponatremia Lymphadenopathy of head and neck region Skin lesion of face Lesion of mouth Necrotic wound of left hand Squamous cell carcinoma of oral cavity ? Hypertension Family History Father Cancer lung cancer Mother CAD (coronary artery disease) Social History Smoking and tobacco/nicotine status: never used tobacco/nicotine Physical Exam Const: COMMON NORMALS: no acute distress, patient oriented x3 and healthy appearing HENMT: COMMON NORMALS: normocephalic and atraumatic HEAD & SCALP: normocephalic and atraumatic Neck/C-Spine: COMMON NORMALS: full ROM and supple Chest: COMMONS NORMALS: normal inspection of the chest Resp: COMMON NORMALS: normal respiratory effort Extremity: COMMON NORMALS: full ROM NARRATIVE EXTREMITY EXAM: dehiscence to the wound of the right stump no active bleeding at this time Neuro: COMMON NORMALS: patient oriented x3, moves all extremities and no focal motor deficits Psych: COMMON NORMALS: mental status grossly normal, Normal thought process present and cooperative THOUGHT PROCESS: Normal thought process present Skin: COMMON NORMALS: no rashes or lesions noted and no wounds GENERAL SKIN EXAM: no rashes or lesions noted Course Vital Signs: Vital signs: Vital Signs Temperature 97.5 F L 04/18/24 16:28 Pulse Rate 70 04/18/24 17:05 Respiratory Rate 18 04/18/24 17:05 Blood Pressure 122/80 04/18/24 17:05 Pulse Oximetry 98 04/18/24 17:05 Oxygen Delivery Me thod Room Air 04/18/24 16:28 MDM - Extremity (Nontraumatic) Medical Decision Making Patient presents here with wound dehiscence after falling on his stump he has no signs of any major injuries besides a dehisced wound I did speak to his surgeon who recommended wet-to-dry dressing patient's not suicidal here or homicidal or acutely psychotic he stable for discharge with his at this time. Medical Records I reviewed the patient's medical records. No radiology studies performed this visit Discharge Plan Discharge Patient Disposition: Home Clinical Impression: Fall, Dehiscence of wound Below knee amputation Qualifiers: Encounter type: initial encounter Laterality: right Qualified Code(s): S88.111A - Complete traumatic amputation at level between knee and ankle, right lower leg, initial encounter Condition: Stable Prescriptions: No Action lisinopril 20 mg tablet 20 mg PO DAILY (DME) Knee scooter See Rx Instructions .Route .MEDSUPPLY Qty: 1 0RF Rx Instructions: As directed (DME) Right below the knee prostethis See Rx Instructions .Route .MEDSUPPLY Qty: 1 0RF Rx Instructions: As directed (DME) Dexcom G7 [employer] Misc See Rx Instructions .Route Qty: 1 0RF Rx Instructions: As directed (DME) Dexcom G7 Sensor Device See Rx Instructions .Route Qty: 3 1RF Rx Instructions: As directed insulin glargine [Lantus U-100 Insulin] 100 unit/mL Solution 30 unit SUBCUT BEDTIME Qty: 10 6RF amlodipine 10 mg tablet 10 mg PO DAILY Qty: 60 0RF Novolin N NPH U-100 Insulin 100 unit/mL suspension 45 unit SUBCUT DAILY metformin 500 mg tablet 500 mg PO BID Aspir-81 81 mg Tablet,Delayed Release (Dr/Ec) 81 mg PO DAILY oxycodone 10 mg tablet 10 mg PO Q4H PRN (Reason: Pain) Discharge Orders: Discharge ED (Routine); Ordered 04/18/24 Ordered By: Donnell Saab Referrals: Shannon Calle FNP [Primary Care Provider] - 4-7 days Discharge Diet: Advance as tolerated Discharge Activity: Resume usual activity Patient Instructions: Wound Dehiscence (ED) Coding Level of Care Code ED Assistant Brand Manager for Liseth Magallon
[2024-04-18 17:05] VITALS: BP 122/80; PULSE 70; RESP 18; O2SAT 98
== END 2024-04-18 17:06 | disposition home or self-care (01) ==
PROVIDERS: Emergency Provider Emergency Medicine; PCP Nurse Practitioner Family
DX: T87.81 Dehiscence of amputation stump (principal); Z89.511 Acquired absence of right leg below knee; Z79.4 Long term (current) use of insulin; Z79.84 Long term (current) use of oral hypoglycemic drugs; Z79.82 Long term (current) use of aspirin; E11.9 Type 2 diabetes mellitus without complications; I10 Essential (primary) hypertension
CPT/HCPCS: 99281

== ENCOUNTER → 2024-04-24 13:59 | Outpatient (BNVA) | payer MEDICARE, SELFPAY | PROVIDERS: PCP Nurse Practitioner Family; Visit Provider Thoracic Surgery (Cardiothoracic Vascular Surgery) | DX: T87.81 Dehiscence of amputation stump (principal); Y83.8 Other surgical procedures as the cause of abnormal reaction of the patient, or of later complication, without mention of misadventure at the time of the procedure; Z89.511 Acquired absence of right leg below knee | CPT/HCPCS: 11042; 11045; A6446 ==

== ENCOUNTER → 2024-04-25 10:16 | Outpatient (BNVA) | payer MEDICARE, SELFPAY | PROVIDERS: PCP Nurse Practitioner Family; Visit Provider Podiatrist Foot & Ankle Surgery | DX: L60.3 Nail dystrophy (principal); G62.9 Polyneuropathy, unspecified; E11.42 Type 2 diabetes mellitus with diabetic polyneuropathy; Z89.511 Acquired absence of right leg below knee; Z79.4 Long term (current) use of insulin | CPT/HCPCS: 11720; 11721; 99203 ==

== ENCOUNTER → 2024-05-04 15:50 | Outpatient (BNVA) | payer MEDICARE, SELFPAY | PROVIDERS: PCP Nurse Practitioner Family; Visit Provider Thoracic Surgery (Cardiothoracic Vascular Surgery) | DX: I96 Gangrene, not elsewhere classified (principal); T87.81 Dehiscence of amputation stump; Y83.8 Other surgical procedures as the cause of abnormal reaction of the patient, or of later complication, without mention of misadventure at the time of the procedure | CPT/HCPCS: 11042; 97605; A6237 ==

== ENCOUNTER → 2024-05-11 16:00 | Outpatient (BNVA) | payer MEDICARE, SELFPAY | PROVIDERS: PCP Nurse Practitioner Family; Visit Provider Thoracic Surgery (Cardiothoracic Vascular Surgery) | DX: I96 Gangrene, not elsewhere classified (principal); T87.81 Dehiscence of amputation stump; Y83.8 Other surgical procedures as the cause of abnormal reaction of the patient, or of later complication, without mention of misadventure at the time of the procedure; Z89.511 Acquired absence of right leg below knee | CPT/HCPCS: 97597; 97605 ==

== ENCOUNTER → 2024-05-19 09:16 | Outpatient (BNVA) | payer MEDICARE, SELFPAY | PROVIDERS: PCP Nurse Practitioner Family; Visit Provider Thoracic Surgery (Cardiothoracic Vascular Surgery) | DX: I96 Gangrene, not elsewhere classified (principal); T87.81 Dehiscence of amputation stump; Y83.8 Other surgical procedures as the cause of abnormal reaction of the patient, or of later complication, without mention of misadventure at the time of the procedure; Z89.511 Acquired absence of right leg below knee | CPT/HCPCS: 97597 ==

== ENCOUNTER → 2024-05-26 10:41 | Outpatient (BNVA) | payer MEDICARE, SELFPAY | PROVIDERS: PCP Nurse Practitioner Family; Visit Provider Thoracic Surgery (Cardiothoracic Vascular Surgery) | DX: I96 Gangrene, not elsewhere classified (principal); T87.81 Dehiscence of amputation stump; Y83.8 Other surgical procedures as the cause of abnormal reaction of the patient, or of later complication, without mention of misadventure at the time of the procedure; Z89.511 Acquired absence of right leg below knee | CPT/HCPCS: 97597; A6210 ==

== ENCOUNTER → 2024-06-02 10:20 | Outpatient (BNVA) | payer MEDICARE, SELFPAY | PROVIDERS: PCP Nurse Practitioner Family; Visit Provider Thoracic Surgery (Cardiothoracic Vascular Surgery) | DX: I96 Gangrene, not elsewhere classified (principal); T87.81 Dehiscence of amputation stump; Z89.511 Acquired absence of right leg below knee | CPT/HCPCS: 97597; A6210 ==

== ENCOUNTER 2024-09-20 14:43 | Inpatient (IN) | payer MEDICARE, SELFPAY ==
[2024-09-20] VITALS (23 sets, daily range): BP systolic 81–126; BP diastolic 29–67; PULSE 77–108; RESP 14–22; TEMP 36.4; O2SAT 66–98; BMI 27.1
--- NOTE | 2024-09-20 15:11 | CTR_ITS ---
PROCEDURE INFORMATION: Exam: CT Chest With Contrast; Diagnostic Exam date and time: 09/20/2024 4:56 PM Age: 69 years old Clinical indication: Abdominal pain; Generalized; Chest wall pain; Additional info: Rlq pain TECHNIQUE: Imaging protocol: Diagnostic computed tomography of the chest with contrast. Radiation optimization: All CT scans at this facility use at least one of these dose optimization techniques: automated exposure control; mA and/or kV adjustment per patient size (includes targeted exams where dose is matched to clinical indication); or iterative reconstruction. Contrast material: OMNIPAQUE 350; Contrast volume: 100 ml; Contrast route: INTRAVENOUS (IV); COMPARISON: CR XR chest 1V portable [id number] 03/01/2024 12:55 PM RADIATION DOSE METRICS: Total DLP (mGy-cm): 1478.28 FINDINGS: Tubes, catheters and devices: Tracheostomy tube is present its distal tip just at the thoracic inlet. Lungs: Reticulonodular airspace infiltrates within the left upper and left lower lobes. Denser airspace infiltrates in the basilar right lower. Milder subtle ground-glass opacities right upper lobe. There are multiple nodules in the right lung none of which measure more than 4 mm. No lobar consolidation. There are filling defects to the bronchi associated with the right lower lobe. Pleural spaces: Unremarkable. No pneumothorax. No pleural effusion. Heart: Unremarkable. No cardiomegaly. No pericardial effusion. Coronary arteries: Coronary artery calcifications. Esophagus: There is fluid up to the midthoracic esophagus. Lymph nodes: Scattered small multi station mediastinal lymph nodes. No thoracic pathologic lymphadenopathy. Vasculature: Unremarkable. No aortic aneurysm. Bones/joints: Unremarkable. No acute fracture. Soft tissues: Bilateral gynecomastia. PROCEDURE INFORMATION: Exam: CT Abdomen And Pelvis With Contrast Exam date and time: 09/20/2024 4:56 PM Age: 69 years old Clinical indication: Abdominal pain; Generalized; Chest wall pain; Additional info: Rlq pain TECHNIQUE: Imaging protocol: Computed tomography of the abdomen and pelvis with contrast. Radiation optimization: All CT scans at this facility use at least one of these dose optimization techniques: automated exposure control; mA and/or kV adjustment per patient size (includes targeted exams where dose is matched to clinical indication); or iterative reconstruction. Contrast material: OMNIPAQUE 350; Contrast volume: 100 ml; Contrast route: INTRAVENOUS (IV); COMPARISON: CT abdomen pelvis w con* [id number] 03/01/2024 2:41 PM RADIATION DOSE METRICS: Total DLP (mGy-cm): 1478.28 FINDINGS: Liver: Normal. No mass. Gallbladder and biliary ducts: Normal. No calcified stones. No ductal dilation. Pancreas: Normal pancreas otherwise. Spleen: Overall similar appearance of a lobulated soft tissue mass in the left upper quadrant situated between the pancreatic tail spleen. The soft tissue lesion appears to follow splenic attenuation. The spleen proper appears unremarkable. Adrenal glands: Normal. No mass. Kidneys and ureters: Bilateral renal cysts. No hydronephrosis. No renal or ureteral calculi. Stomach and bowel: No bowel obstruction. Appendix: Appendix. Intraperitoneal space: Unremarkable. No free air. No significant fluid collection. Vasculature: Unremarkable. No abdominal aortic aneurysm. Lymph nodes: Interval slightly improved bilateral inguinal lymph nodes. Urinary bladder: There is layering stone/calcium in the posterolateral urinary bladder. The urinary bladder is distended. Reproductive: Unremarkable as visualized. Bones/joints: Unremarkable. No acute fracture. Soft tissues: Unremarkable. CT/CT chest abdpel w/*[id number] IMPRESSION: 1. Airspace disease in the left lung. Subtle ground-glass opacities also in the right lung as above. Findings are concerning for multifocal pneumonia possibly of aspiration etiology given that there is fluid up to the midthoracic esophagus. There are some filling defects to the bronchi associated to the left lower lobe. 2. Scattered small multi station mediastinal lymph nodes are not pathologically enlarged and may be reactive. IMPRESSION: 1. No definite acute intra-abdominal or intrapelvic process. 2. Redemonstration of soft tissue lesion situated between the pancreatic tail and spleen. The attenuation of this lesion follows spleen and may be related to a prominent splenule or accessory splenic tissue. Further confirmation can be made with a nonemergent abdominal MRI with and without contrast. 3. Interval slightly improved appearance of bilateral inguinal lymph nodes. 4. There is some layering calcium in the posterolateral urinary bladder. 5. Additional incidental/chronic findings as above. COMMENTS: Consistent with the [employer]'s Incidental Findings Committee white paper (J Am Micheal Radiol 2018): Any incidental renal lesion less than 1 cm or classified as too small to characterize, or any incidental cystic renal lesion characterized as simple-appearing, is likely benign. No follow-up imaging is recommended for these lesions per consensus recommendations based on imaging criteria.
--- NOTE | 2024-09-20 15:12 | ED_ITS ---
HPI - Nausea/Vomiting/Diarrhea 2 General: Chief complaint: Nausea/Vomiting/Diarrhea Stated complaint: N/V Time Seen by Provider: 09/20/24 14:47 Source: family Mode of arrival: EMS Limitations: physical limitation History of Present Illness: Patient is a 69-year-old male with past medical history of diabetes, squamous cell carcinoma, necrotizing fasciitis of the jaw who presents to the emergency department by ambulance due to nausea and vomiting for 1 day. Family providing most of the history, as patient's physical limitation is making review of systems not obtainable. Patient was discharged from [facility] yesterday, after staying there for 4 months. He had presented with squamous cell carcinoma of the jaw, where he had it removed and had gel replacement afterwards. This reportedly caused an infection and patient had subsequent surgery afterwards to correct this along with extensive stay in the ICU. Family is noting that they were not discharged home with nausea medications and they think that this is why he has been nauseous, but he is also had multiple episodes of vomiting where consistency is brown and odorless. Patient also has been complaining of some abdominal pain and has not had an appetite. Patient recently finished chemo and radiation into hospital. Family is noting that he also had an NE with one of his surgeries, and has since been told that he has severely calcified coronary arteries and his ejection fraction is only 41. At this time he is requiring 3 L of oxygen to stay above 90% SpO2, family is noting that he has never required oxygen in the past. Heart rate is elevated in the 100s, afebrile at this time. MD elicited complaint: nausea, vomiting and abdominal pain Pertinent past history: other (4-month stay in the hospital for squamous cell carcinoma complicated by necrotizing fasciitis) Onset (ago): day(s) (1) Description of vomiting: other (Brown, odorless) Associated abdominal pain: Yes Location of pain: Diffuse Pain consistency: constant Related Data Home Medications Medication Instructions Recorded Confirmed lisinopril 20 mg tablet 20 mg PO DAILY 11/25/20 09/20/24 aspirin 81 mg tablet,delayed 81 mg PO DAILY 03/24/24 09/20/24 release atorvastatin 80 mg tablet 80 mg PO DAILY 09/20/24 09/20/24 chlorhexidine gluconate 0.12 % 30 ml PO DAILY 09/20/24 09/20/24 mouthwash dapagliflozin propanediol 10 mg 10 mg PO DAILY 09/20/24 09/20/24 tablet (Farxiga) gabapentin 300 mg capsule 300 mg PO TID 09/20/24 09/20/24 lorazepam 0.5 mg tablet 0.5 mg PO DAILY 09/20/24 09/20/24 losartan 25 mg tablet 12.5 mg PO DAILY 09/20/24 09/20/24 metformin 1,000 mg tablet 1,000 mg PO BID 09/20/24 09/20/24 metoprolol tartrate 25 mg tablet 25 mg PO DAILY 09/20/24 09/20/24 ondansetron 4 mg disintegrating 4 mg PO PRN PRN Nausea And Vomiting 09/20/24 09/20/24 tablet sertraline 50 mg tablet 50 mg PO DAILY 09/20/24 09/20/24 Previous Rx's Medication Instructions Recorded insulin glargine 100 unit/mL 30 unit (0.3 mL) SUBCUT BEDTIME 03/06/24 subcutaneous solution (Lantus #10 mL U-100 Insulin) Knee scooter #1 ea 03/21/24 Right below the knee prostethis #1 ea 03/28/24 blood-glucose meter,continuous #1 ea 03/28/24 ([employer]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) blood-glucose sensor (Dexcom G7 #3 ea 03/28/24 Sensor device) Allergies Allergy/AdvReac Type Severity Reaction Status Date / Time No Known Allergies Allergy Verified 04/25/24 10:24 Review of Systems 2 General: Reports: Other (Unobtainable due to physical limitation, tracheostomy) [facility] ED 2 PFSH: Medical History Below knee amputation Type 2 diabetes mellitus Constipation Increased anion gap metabolic acidosis Hyperglycemia Necrotizing fasciitis Necrotizing soft tissue infection Gas gangrene Necrotizing fasciitis Cellulitis of foot, right Weakness Leukocytosis Hyponatremia Lymphadenopathy of head and neck region Skin lesion of face Lesion of mouth Necrotic wound of left hand Squamous cell carcinoma of oral cavity ? Hypertension Family History Father Cancer lung cancer Mother CAD (coronary artery disease) Social History Smoking and tobacco/nicotine status: unknown if used tobacco/nicotine Physical Exam 2 Const: COMMON NORMALS: patient oriented x3 and alert EXAM LIMITATIONS: p hysical limitations (Tracheostomy, mandible removed which prevents communication) GENERAL APPEARANCE: lethargic ORIENTATION/CONSCIOUSNESS: Y es awake and Yes lethargic OTHER: Patient appears pale, lethargic HENMT: OTHER: Postoperative changes of the mandible, tongue showing signs of cracking and emesis. Presence of tracheostomy, with surrounding erythema Eye: COMMON NORMALS: Equal, round and reactive pupils present, EOMs intact bilaterally and conjunctivae normal CONJUNCTIVA: Yes conjunctivae normal P UPIL: Yes Equal, round and reactive pupils present Neck/C-Spine: COMMON NORMALS: full ROM Chest: COMMONS NORMALS: normal inspection of the chest Resp: COMMON NORMALS: normal respiratory effort, No retractions, No use of accessory muscles and clear to auscultation bilaterally AUSCULTATION: clear to auscultation bilaterally Cardio: COMMON NORMALS: regular rhythm, No gallops present (Cardio), No murmurs present (Cardio) and No rub (Cardio) RATE: tachycardic RHYTHM: r egular rhythm GI: COMMON NORMALS: Soft to palpation AUSCULTATION: Yes normoactive bowel sounds PALPATION: Yes Soft to palpation OTHER: PEG tube left upper quadrant. Diffuse tenderness to palpation, though seems to be severe in the right lower quadrant. Extremity: NARRATIVE EXTREMITY EXAM: Right BKA Neuro: COMMON NORMALS: patient oriented x3, moves all extremities, no focal motor deficits and no sensory deficits noted SENSORIUM/ORIENTATION: Yes alert and Yes lethargic SPEECH: Other neuro speech findings (No speech due to physical limitation) OTHER: He is responding to commands and verbal cues Psych: COMMON NORMALS: mental status grossly normal Course 2 Vital Signs: Vital signs: Vital Signs Temperature 97.6 F 09/20/24 14:53 Pulse Rate 90 09/20/24 20:14 Respiratory Rate 18 09/20/24 20:14 Blood Pressure 91/44 09/20/24 20:14 Pulse Oximetry 95 09/20/24 20:14 Oxygen Delivery Me thod Room Air 09/20/24 20:14 Oxygen Flow Rate 3 09/20/24 17:38 MDM - Nausea/Vomiting/Diarrhea Medical Decision Making Patient was discharged from [facility] yesterday, where he was for 4 months after extensive workup following squamous cell carcinoma diagnosis. Primary complaint was just nausea, as they were not sent home with any antiemetics. However upon initial examination was found to be hypoxic and was placed on 3 L. He has required the 3 L throughout ED stay to maintain above 90% on his SpO2. Did complain of some abdominal pain at time of examination. There was some active emesis of brown consistency as well. Was initially tachycardic at time of examination initially. Obtained labs, which included ABG and urinalysis. Of note, his first lactic was 3.5, reflex showing 4.0. He was bolused a liter of fluids, and nausea was treated with Zofran and Reglan. Obtained chest abdomen pelvis CT, showing signs of airspace disease in the lung concerning for pneumonia, likely hospital-acquired. I spoke with hospitalist, Dr. Pierre, who had recommended we CT the patient's neck as well. Patient's mandible was removed during his hospitalization as this was where the squamous cell was located, and on examination there were obvious postoperative changes with tracheostomy inferior to this. With the CT of his neck, multiple nonspecific findings included potential reappearance of the initial neoplasm, though no signs of abscess or cellulitis. Patient was started on Zosyn and bank, and a second liter of fluids was bolused after his blood pressure noted to be dropping, most recently 91/44. Informed family of plan for admission here to the ICU, they agree with plan and all other questions and concerns addressed. Dr. Lui putting in admit orders at this time. Lab Data 09/20/24 15:36 09/20/24 15:36 Radiology Impressions Chest/Abdomen/Pelvis CT 09/20/24 15:11 IMPRESSION: 1. Airspace disease in the left lung. Subtle ground-glass opacities also in the right lung as above. Findings are concerning for multifocal pneumonia possibly of aspiration etiology given that there is fluid up to the midthoracic esophagus. There are some filling defects to the bronchi associated to the left lower lobe. 2. Scattered small multi station mediastinal lymph nodes are not pathologically enlarged and may be reactive. IMPRESSION: 1. No definite acute intra-abdominal or intrapelvic process. 2. Redemonstration of soft tissue lesion situated between the pancreatic tail and spleen. The attenuation of this lesion follows spleen and may be related to a prominent splenule or accessory splenic tissue. Further confirmation can be made with a nonemergent abdominal MRI with and without contrast. 3. Interval slightly improved appearance of bilateral inguinal lymph nodes. 4. There is some layering calcium in the posterolateral urinary bladder. 5. Additional incidental/chronic findings as above. COMMENTS: Consistent with the [employer]'s Incidental Findings Committee white paper (J Am Micheal Radiol 2018): Any incidental renal lesion less than 1 cm or classified as too small to characterize, or any incidental cystic renal lesion characterized as simple-appearing, is likely benign. No follow-up imaging is recommended for these lesions per consensus recommendations based on imaging criteria. Neck CT 09/20/24 18:05 IMPRESSION: 1. Since the most recent available prior CT 03/01/2024, there has been resection of the anterior midline mandible with numerous surgical clips in the adjacent submental soft tissues on the right and left. I suspect there is a soft tissue reconstruction flap present in the anterior submental region now. Correlate with clinical/surgical history. Tracheostomy now in place. 2. There is now irregularly-shaped mildly enhancing soft tissue in the midline and paramedian submental region at the site of previous presumed soft tissue neoplasm seen on previous CT just below the level of the anterior mandible and mandibular resection site as described above. It measures approximately 3.5 cm x 5 cm x 3 cm. This soft tissue is nonspecific but concerning for recurrent neoplasm versus part of the reconstruction flap which I feel is less likely. Follow-up PET-CT may be useful. 3. Along the left side of the lower face there appears to be abnormal swelling and enlargement of the left parotid gland new from prior CT. There is associated soft tissue swelling, stranding, and reticulation in the adjacent left facial tissues and subcutaneous tissues extending down to the level of the mandibular resection site. These changes are nonspecific and could be post therapeutic or possibly due to a superficial infectious process. Correlate clinically. 4. Since the prior CT, there are now extensive generalized soft tissue changes throughout the neck compatible with presumed post therapeutic/post radiation/postsurgical changes. Laboratory Results WBC 5.72 10^3/uL (3.29-11.43) 09/20/24 15:36 RBC 4.12 10^6/uL (3.85-5.65) 09/20/24 15:36 Hgb 11.70 g/dL (11.27-16.99) 09/20/24 15:36 Hct 37.0 % (37-53) 09/20/24 15:36 MCV 89.8 fl (82-101) 09/20/24 15:36 MCH 28.4 pg (27-33) 09/20/24 15:36 MCHC 31.6 g/dL (30-55) 09/20/24 15:36 RDW 17.2 % (12.1-15.1) H 09/20/24 15:36 Plt Count 365 10^3/cmm (157-399) 09/20/24 15:36 MPV 8.6 fL (7.4-10.4) 09/20/24 15:36 Neut % (Auto) 86.0 % 09/20/24 15:36 Lymph % (Auto) 3.0 % 09/20/24 15:36 [place] % (Auto) 10.5 % 09/20/24 15:36 Eos % (Auto) 0.0 % 09/20/24 15:36 Baso % (Auto) 0.3 % 09/20/24 15:36 Neut # (Auto) 4.92 10^3/uL (1.8-7.7) 09/20/24 15:36 Lymph # (Auto) 0.2 10^3/uL (0.8-4.8) L 09/20/24 15:36 [place] # (Auto) 0.6 10^3/uL (0.2-0.9) 09/20/24 15:36 Eos # (Auto) 0.0 10^3/uL (0.0-0.8) 09/20/24 15:36 Baso # (Auto) 0.0 10^3/uL (0.0-0.1) 09/20/24 15:36 Nucleated RBC % (auto) 0 % 09/20/24 15:36 Nucleated RBCs # 0.0 /100WBC 09/20/24 15:36 ESR 20 mm/hr (0-10) H 09/20/24 15:36 PT 14.40 SECONDS (12.1-14.9) 09/20/24 15:36 INR 1.08 (0.8-1.2) 09/20/24 15:36 APTT 29.6 SECONDS (23.9-36.7) 09/20/24 15:36 Specimen Type Arterial 09/20/24 15:32 Sample Site Radial, left 09/20/24 15:32 ABG pH 7.51 (7.35-7.45) H 09/20/24 15:32 ABG pCO2 38.1 mmHg (35-45) 09/20/24 15:32 ABG pO2 52.6 mmHg (80.0-100.0) L 09/20/24 15:32 ABG PO2/FiO2 Ratio 146 09/20/24 15:32 ABG HCO3 30.1 mmol/L (22-26) H 09/20/24 15:32 ABG O2 Saturation 89.1 09/20/24 15:32 ABG Base Excess 6.6 mmol/L (-2.0-2.0) H 09/20/24 15:32 [place] Test Pos 09/20/24 15:32 A-a O2 Gradient 20.0 mmHg (5-10) H 09/20/24 15:32 Hematocrit 34.7 % (42-52) L 09/20/24 15:32 Hgb O2 Saturation 87.4 % (95-100) L 09/20/24 15:32 Carboxyhemoglobin 1.0 %THgb (0.4-20.1) 09/20/24 15:32 Methemoglobin 0.8 % (0.4-1.5) 09/20/24 15:32 Total Hemoglobin 11.3 g/dL (14-18) L 09/20/24 15:32 Sodium 141.0 mmol/L (131-143) 09/20/24 15:32 Potassium 3.7 mmol/L (3.5-5.0) 09/20/24 15:32 Glucose 246.0 mg/dL (70-115) H 09/20/24 15:32 Ionized Calcium 1.2 mmol/L (1.1-1.4) 09/20/24 15:32 O2 Delivery Device Nc 09/20/24 15:32 O2 Liters/Min 4.0 % 09/20/24 15:32 FiO2 36.0 % 09/20/24 15:32 Terminal Operator ID Cak 09/20/24 15:32 Sodium 140 mmol/L (136-145) 09/20/24 15:36 Potassium 4.2 mmol/L (3.5-5.1) 09/20/24 15:36 Chloride 95 mmol/L (98-107) L 09/20/24 15:36 Carbon Dioxide 29 mmol/L (22-29) 09/20/24 15:36 Anion Gap 20.2 (5-19) H 09/20/24 15:36 BUN 21 mg/dL (8-23) 09/20/24 15:36 Creatinine 0.5 mg/dL (0.7-1.2) L 09/20/24 15:36 GFR Calculation 165.9 mL/min (90-130) H 09/20/24 15:36 Glucose 242 mg/dL (65-115) H 09/20/24 15:36 Estimat Average Glucose 137 09/20/24 15:36 Hemoglobin A1c 6.4 % (4.0-6.0) H 09/20/24 15:36 Calculated Osmolality 301 mOsm/kg (285-295) H 09/20/24 15:36 Lactic Acid 3.5 mmol/L (0.5-2.2) H 09/20/24 15:36 Lactic Acid (Sepsis) 4.0 mmol/L (0.5-2.2) H 09/20/24 17:45 Calcium 9.9 mg/dL (8.5-10.5) 09/20/24 15:36 Total Bilirubin 0.4 mg/dL (0.15-1.2) 09/20/24 15:36 AST 16 U/L (0-40) 09/20/24 15:36 ALT 16 U/L (0-41) 09/20/24 15:36 Alkaline Phosphatase 103 U/L (40-130) 09/20/24 15:36 Troponin T Baseline 31 ng/L (0-15) H 09/20/24 15:36 C-Reactive Protein 32.3 mg/L (0.0-4.9) H 09/20/24 15:36 NT-Pro-B Natriuret Pep 1217 pg/mL (0-125) H 09/20/24 15:36 Total Protein 7.5 g/dL (6.6-8.7) 09/20/24 15:36 Albumin 3.8 g/dL (3.5-5.2) 09/20/24 15:36 Globulin 3.7 g/dL (1.3-4.6) 09/20/24 15:36 Triglycerides 97 mg/dL (0-150) 09/20/24 15:36 Cholesterol 114 mg/dL (0-200) 09/20/24 15:36 LDL Cholesterol, Calc 61 mg/dL (50-129) 09/20/24 15:36 HDL Cholesterol 34 mg/dL (60-100) L 09/20/24 15:36 LDL/HDL Ratio 1.79 RATIO (0.00-3.22) 09/20/24 15:36 Cholesterol/HDL Ratio 3.35 mg/dL (1.0-5.00) 09/20/24 15:36 Lipase 12 U/L (13-60) L 09/20/24 15:36 Procalcitonin 0.10 ng/mL (0-0.5) 09/20/24 15:36 TSH 1.60 uIU/mL (0.27-4.20) 09/20/24 15:36 Urine Color Yellow (Yellow) 09/20/24 16:15 Urine Appearance Clear (CLEAR) 09/20/24 16:15 Urine pH 8.5 (5-7) A 09/20/24 16:15 Ur Specific [place] 1.036 (1.005-1.030) H 09/20/24 16:15 Urine Protein Negative (Negative) 09/20/24 16:15 Urine Glucose (UA) 3+ (Normal) H 09/20/24 16:15 Urine Ketones 1+ (Negative) H 09/20/24 16:15 Urine Blood Negative (Negative) 09/20/24 16:15 Urine Nitrate Negative (Negative) 09/20/24 16:15 Urine Bilirubin Negative (Negative) 09/20/24 16:15 Urine Urobilinogen 0.2 mg/dL (Negative) 09/20/24 16:15 Ur Leukocyte Esterase Negative (Negative) 09/20/24 16:15 Urine RBC 0-2 /hpf (0-2) 09/20/24 16:15 Urine WBC 0-5 /hpf (0-5) 09/20/24 16:15 Ur Squamous Epith Cells 0-5 /hpf (0-5) 09/20/24 16:15 Amorphous Sediment Not Reportable 09/20/24 16:15 Urine Bacteria None seen /hpf (NONE) 09/20/24 16:15 Hyaline Casts 0-4 /lpf H 09/20/24 16:15 All radiology interpretation(s) finalized by discharge Discharge Plan Discharge Patient Disposition: Admitted As Inpatient Clinical Impression: Sepsis Qualifiers: Sepsis type: sepsis due to unspecified organism Sepsis acute organ dysfunction status: unspecified Qualified Code(s): A41.9 - Sepsis, unspecified organism Pneumonia Qualifiers: Pneumonia type: due to unspecified organism Laterality: unspecified laterality Lung location: unspecified part of lung Qualified Code(s): J18.9 - Pneumonia, unspecified organism Condition: Stable Coding Level of Care Code 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
[2024-09-20 15:43] LABS: ABG PCO2 38.1 mmHg (35-45); ABG PH Result 7.51 (7.35-7.45); Arterial Blood Gas Hematocrit 34.7 % (42-52); Base Excess ABG 6.6 mmol/L (-2.0-2.0); Blood Gas Allen Test Pos; Blood Gas Operator Identificat CAK; Blood Gas Sample Site Radial, left; Blood Gas Sample Type Arterial; HCO3 ABG 30.1 mmol/L (22-26); HGB O2 Sat 87.4 % (95-100); Ionized Calcium Level - ABG 1.2 mmol/L (1.1-1.4); Methemoglobin 0.8 % (0.4-1.5); Oxygen Device NC; Oxygen Saturation ABG 89.1; PO2 ABG 52.6 mmHg (80.0-100.0); PO2 FiO2 Ratio Arterial Blood 146; Potassium Level - ABG 3.7 mmol/L (3.5-5.0); Total Hemoglobin 11.3 g/dL (14-18)
[2024-09-20 16:01] LABS: Basophils % 0.3 %; Lymphocytes # 0.2 10^3/uL (0.8-4.8); Mean Corpuscular HGB Conc 31.6 g/dL (30-55); Mean Corpuscular Hemoglobin 28.4 pg (27-33); Mean Corpuscular Volume 89.8 fl (82-101); Mean Platelet Volume 8.6 fL (7.4-10.4); Monocytes # 0.6 10^3/uL (0.2-0.9); Monocytes % 10.5 %; Neutrophils # 4.92 10^3/uL (1.8-7.7); Nucleated Red Blood Cells % 0 %; Platelet Count 365 10^3/cmm (157-399); Red Blood Count 4.12 10^6/uL (3.85-5.65); Red Cell Distribution Width 17.2 % (12.1-15.1); White Blood Count 5.72 10^3/uL (3.29-11.43)
[2024-09-20 16:14] LABS: INR 1.08 (0.8-1.2)
[2024-09-20 16:15] LABS: Partial Thromboplastin Time 29.6 SECONDS (23.9-36.7)
[2024-09-20] MEDS: ondansetron 2 mg/ML SDV 2 mL 4 MG IVP (16:17)
[2024-09-20 16:20] LABS: Alanine Aminotransferase 16 U/L (0-41); Albumin Level 3.8 g/dL (3.5-5.2); Alkaline Phosphatase 103 U/L (40-130); Anion Gap 20.2 (5-19); Aspartate Amino Transferase 16 U/L (0-40); Blood Urea Nitrogen 21 mg/dL (8-23); C Reactive Protein 32.3 mg/L (0.0-4.9); Calcium 9.9 mg/dL (8.5-10.5); Carbon Dioxide 29 mmol/L (22-29); Chloride 95 mmol/L (98-107); Creatinine Clr Calc Pharmacy 104.9973; Globulin 3.7 g/dL (1.3-4.6); Glomerular Filtration Rate 165.9 mL/min (90-130); Glucose 242 mg/dL (65-115); Lipase 12 U/L (13-60); Osmolality Calculated 301 mOsm/kg (285-295); Potassium 4.2 mmol/L (3.5-5.1); Sodium 140 mmol/L (136-145); Total Bilirubin 0.4 mg/dL (0.15-1.2); Total Protein 7.5 g/dL (6.6-8.7)
[2024-09-20 16:21] LABS: Lactic Sepsis W/Reflex 3.5 mmol/L (0.5-2.2)
[2024-09-20 16:28] LABS: Bilirubin Urine Negative (Negative); Blood Urine Negative (Negative); Glucose Urine UA 3+ (Normal); Ketones Urine 1+ (Negative); Leukocyte Esterase Urine Negative (Negative); Nitrate Urine Negative (Negative); Protein Urine Negative (Negative); Urine Appearance Clear (CLEAR); Urine Color Yellow (Yellow); Urobilinogen Urine 0.2 mg/dL (Negative); pH Urine 8.5 (5-7)
[2024-09-20 16:30] LABS: Add Urine Microscopic? YES; Bacteria Urine None Seen /hpf; Hyaline Casts Urine 0-4 /lpf; RBC Urine 0-2 /hpf (0-2); Squamous Epithelial Cell Urine 0-5 /hpf (0-5); WBC Urine 0-5 /hpf (0-5)
[2024-09-20] MEDS: sodium chloride 0.9% 1,000 ML 999 ML IV (16:37)
[2024-09-20 16:56] LABS: Specific Gravity, Urine 1.036 (1.005-1.030)
[2024-09-20 16:57] LABS: Add Urine Culture? No
[2024-09-20] MEDS: iohexol 350 mg/mL 500 mL Btl (per mL) IV ×2 (17:03→19:07)
[2024-09-20 17:40] LABS: Reflex Lactate Order REFLEX LACTIC ORDERD
[2024-09-20] MEDS: metoclopramide 5 mg/mL SDV 2 mL 10 MG IVP (17:45)
--- NOTE | 2024-09-20 18:05 | CTR_ITS ---
PROCEDURE INFORMATION: Exam: CT Neck With Contrast Exam date and time: 09/20/2024 6:58 PM Age: 69 years old Clinical indication: Condition or disease; Other: Squamous cell of oral cavity; Additional info: HX of cancer TECHNIQUE: Imaging protocol: Computed tomography of the neck with contrast. Radiation optimization: All CT scans at this facility use at least one of these dose optimization techniques: automated exposure control; mA and/or kV adjustment per patient size (includes targeted exams where dose is matched to clinical indication); or iterative reconstruction. Contrast material: OMNI 350; Contrast volume: 65 ml; Contrast route: INTRAVENOUS (IV); COMPARISON: CT neck w con* [id number] 03/01/2024 2:36 PM RADIATION DOSE METRICS: Total DLP (mGy-cm): 294.76 FINDINGS: Salivary glands: Normal-appearing right parotid gland. Submandibular glands are not well visualized and may have been resected. Enlargement of the left parotid gland. See below dictation. Pharynx: Mild post therapeutic changes throughout the pharynx. Prevertebral and retropharyngeal spaces: Unremarkable. Larynx: Unremarkable. Mild thickening of the epiglottis compatible with post therapeutic change. Thyroid: Normal. No enlarged or calcified nodules. Trachea: Tracheostomy now in place. Lungs: Unremarkable as visualized. Lymph nodes: No definite new pathologic lymphadenopathy. Bones/joints: Interval anterior mandibulectomy changes. Soft tissues: Since prior CT neck 03/01/2024 there has been resection of the anterior midline mandible with numerous surgical clips in the adjacent submental soft tissues on the right and left. There may be a soft tissue reconstruction flap present in the anterior submental region. Correlate with clinical/surgical history. There is however irregularly-shaped mildly enhancing soft tissue in the midline and paramedian submental region at the site of previous presumed soft tissue neoplasm seen on prior CT just below the level of the mandibular resection perhaps best visualized on axial series 8, images 63 through 74. It has a approximate measurements of 3.5 cm AP by 5 cm transverse by 3 cm craniocaudad. This soft tissue is nonspecific but concerning for recurrent neoplasm in this region versus part of a right reconstruction flap which I feel is less likely. Along the left side of the lower face, there appears to be abnormal enlargement/swelling of the left parotid gland new from prior CT. There is associated soft tissue stranding and reticulation in the subcutaneous fat of the adjacent left lower face also new in the interval extending down to the mandibular resection site nonspecific in nature. This could be post therapeutic or possibly due to a superficial infectious process. Since the prior CT there are now extensive generalized soft tissue changes with loss of fat planes and reticulation in the fatty soft tissues bilaterally compatible with post treatment/post therapeutic/postsurgical changes. Mucosal thickening and fluid in the mastoids bilaterally. Mild mucosal thickening in the left maxillary sinus. CT/CT neck w con* [id number] IMPRESSION: 1. Since the most recent available prior CT 03/01/2024, there has been resection of the anterior midline mandible with numerous surgical clips in the adjacent submental soft tissues on the right and left. I suspect there is a soft tissue reconstruction flap present in the anterior submental region now. Correlate with clinical/surgical history. Tracheostomy now in place. 2. There is now irregularly-shaped mildly enhancing soft tissue in the midline and paramedian submental region at the site of previous presumed soft tissue neoplasm seen on previous CT just below the level of the anterior mandible and mandibular resection site as described above. It measures approximately 3.5 cm x 5 cm x 3 cm. This soft tissue is nonspecific but concerning for recurrent neoplasm versus part of the reconstruction flap which I feel is less likely. Follow-up PET-CT may be useful. 3. Along the left side of the lower face there appears to be abnormal swelling and enlargement of the left parotid gland new from prior CT. There is associated soft tissue swelling, stranding, and reticulation in the adjacent left facial tissues and subcutaneous tissues extending down to the level of the mandibular resection site. These changes are nonspecific and could be post therapeutic or possibly due to a superficial infectious process. Correlate clinically. 4. Since the prior CT, there are now extensive generalized soft tissue changes throughout the neck compatible with presumed post therapeutic/post radiation/postsurgical changes.
--- NOTE | 2024-09-20 18:28 | ECG_ITS ---
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 Measurements Intervals [place] Rate: 96 P: 46 GA: 147 QRS: 25 QRSD: 82 T: 83 QT: 371 QTc: 469 Interpretive Statements SINUS RHYTHM POSSIBLE ANTERIOR MYOCARDIAL INFARCTION , PROBABLY OLD [30 ms Q WAVE IN V3/V4, OR R < 0.2 mV IN V4] Nonspecific ST-T changes in the anterolateral leads Compared to ECG 03/01/2024 13:12:24 Myocardial infarct finding now present T-wave abnormality no longer present Electronically Signed On 09-20-2024 19:01:07 FREELANCE DIRECTOR by Lupillo Erickson M.D. [email or web address]
--- NOTE | 2024-09-20 18:34 | P.HP_ITS ---
Providers/Chief Complaint 2 Primary Care Provider: KULWANT Velazquez Chief Complaint: N/V History of Present Illness Santo Smith is a 69 year old male with a past medical history type 2 diabetes mellitus, hypertension, CAD, history of BKA, who presents [facility] due to nausea, vomiting, shortness of breath. Patient has a tracheostomy in place, no voicebox device, at bedside helps with history taking. 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 He then subsequently underwent radiation of that area, and chemotherapy, he completed his last round of radiation chemotherapy just a few days ago. [facility] his response to treatment, has not had any recent PET scans. When he was up at [facility] he also had a myocardial infarction, which was medically managed, he had heavily calcified vessel according to his that they were not able to get past with a medically managed him with aspirin, statin. [facility] started to develop some swelling erythema along the radiation field, he was seen by the skin team, seen by ENT, radiation oncologist according to , they said that it was probably related to radiation and they did not think it was an infection. -Erythema around the right neck, right jaw area, concerns for cellulitis, I would further investigate with a CT of the neck, he was given IV antibiotics in the emergency room, if the CT neck shows evidence of infection, I would recommend discussing with [facility] for consideration of transfer to the, the need for multidisciplinary team, given his complicated surgeries, mandibulectomy, speaking to his ENT physician that performed his surgeries, -If there is no radiographic evidence of infection we can certainly watch him here at [facility] [place] -Will admit to ICU based upon CT imaging as above -Spoke to patient's about my concerns as above, she is agreeable to go to [facility] or stay here at [facility] based upon imaging findings and further discussion -Throughout my conversation with patient's , patient nods, voices understanding Review of Systems 2 Const: Denies: fever(s) Card: Denies: chest pain Resp: Reports: dyspnea GI: Reports: nausea; Denies: abdominal pain Medications/Allergies Home Medications Medication Instructions Recorded Confirmed Last Taken Type lisinopril 20 mg tablet 20 mg PO DAILY 11/25/20 09/20/24 02/27/24 History insulin glargine 100 unit/mL 30 unit (0.3 mL) SUBCUT BEDTIME 03/06/24 09/20/24 Unknown Rx subcutaneous solution (Lantus #10 mL U-100 Insulin) Knee scooter #1 ea 03/21/24 09/20/24 Unknown Rx aspirin 81 mg tablet,delayed 81 mg PO DAILY 03/24/24 09/20/24 Unknown History release Right below the knee prostethis #1 ea 03/28/24 09/20/24 Unknown Rx blood-glucose meter,continuous #1 ea 03/28/24 09/20/24 Unknown Rx (Dexcom G7 Concrete Form Setter) blood-glucose sensor (Dexcom G7 #3 ea 03/28/24 09/20/24 Unknown Rx Sensor device) atorvastatin 80 mg tablet 80 mg PO DAILY 09/20/24 09/20/24 Unknown History chlorhexidine gluconate 0.12 % 30 ml PO DAILY 09/20/24 09/20/24 Unknown History mouthwash dapagliflozin propanediol 10 mg 10 mg PO DAILY 09/20/24 09/20/24 Unknown History tablet (Farxiga) gabapentin 300 mg capsule 300 mg PO TID 09/20/24 09/20/24 Unknown History lorazepam 0.5 mg tablet 0.5 mg PO DAILY 09/20/24 09/20/24 Unknown History losartan 25 mg tablet 12.5 mg PO DAILY 09/20/24 09/20/24 Unknown History metformin 1,000 mg tablet 1,000 mg PO BID 09/20/24 09/20/24 Unknown History metoprolol tartrate 25 mg tablet 25 mg PO DAILY 09/20/24 09/20/24 Unknown History ondansetron 4 mg disintegrating 4 mg PO PRN PRN Nausea And Vomiting 09/20/24 09/20/24 Unknown History tablet sertraline 50 mg tablet 50 mg PO DAILY 09/20/24 09/20/24 Unknown History Allergies Allergy/AdvReac Type Severity Reaction Status Date / Time No Known Allergies Allergy Verified 04/25/24 10:24 PFSH Acute 2 PFSH: Medical History Below knee amputation Type 2 diabetes mellitus Constipation Increased anion gap metabolic acidosis Hyperglycemia Necrotizing fasciitis Necrotizing soft tissue infection Gas gangrene Necrotizing fasciitis Cellulitis of foot, right Weakness Leukocytosis Hyponatremia Lymphadenopathy of head and neck region Skin lesion of face Lesion of mouth Necrotic wound of left hand Squamous cell carcinoma of oral cavity ? Hypertension Family History Father Cancer lung cancer Mother CAD (coronary artery disease) Social History Smoking and tobacco/nicotine status: unknown if used tobacco/nicotine Vitals/I&O/Wt Last Vital Signs Temp 97.6 F 09/20/24 14:53 Pulse 100 09/20/24 17:38 Resp 16 09/20/24 17:38 BP 120/56 09/20/24 15:59 Pulse Ox 92 09/20/24 17:38 O2 Del Method Nasal Cannula 09/20/24 17:38 O2 Flow Rate 3 09/20/24 17:38 09/20/24 09/20/24 09/20/24 06:59 14:59 22:59 Intake Total 1000 / 1000 Balance 1000 / 1000 Weight last 48 hrs Weight 90.718 kg Physical Exam 2 Const: COMMON NORMALS: no acute distress HENMT: COMMON NORMALS: normocephalic HEAD & SCALP: normocephalic Eye: COMMON NORMALS: Equal, round and reactive pupils present Neck/C-Spine: OTHER: Neck examination tracheostomy in place, cough, does have mucus secretions around tracheostomy site, neck has area of swelling, erythema, has superficial wounds some of which are packed largest measuring 1 x 1 cm ? Oral cavity tongue is hanging out, enlarged, with diffuse mucous secretions, has packing around the oral cavity ? Resp: COMMON NORMALS: normal respiratory effort, No retractions, No use of accessory muscles and clear to auscultation bilaterally AUSCULTATION: wheezes Cardio: COMMON NORMALS: regular rate, regular rhythm, S1 normal heart sound present and S2 normal heart sound present RATE: regular rate RHYTHM: r egular rhythm HEART SOUNDS: S1 normal heart sound present and S2 normal heart sound present GI: COMMON NORMALS: Normal to inspection, nondistended, normoactive bowel sounds present, Soft to palpation and non-tender Extremity: COMMON NORMALS: no pedal edema OTHER: Left TKA Psych: COMMON NORMALS: mental status grossly normal Data 09/20/24 15:36 09/20/24 15:36 Micro: Microbiology 09/20/24 16:32 Blood Culture - Preliminary Blood SPECIMEN COLLECTED 09/20/24 16:27 Blood Culture - Preliminary Blood SPECIMEN COLLECTED A&P Assessment and plan (1) Multifocal pneumonia: (2) Type 2 diabetes mellitus: (3) CAD (coronary artery disease): (4) Squamous cell carcinoma of mandible: (5) PEG (percutaneous endoscopic gastrostomy) status: (6) Tracheostomy dependent: (7) Sepsis: (8) Acute hypoxic respiratory failure: Plan Acute hypoxic respiratory failure Multifocal pneumonia -Seen on CT chest CT/CT chest abdpel w/*[id number] IMPRESSION: 1. Airspace disease in the left lung. Subtle ground-glass opacities also in the right lung as above. Findings are concerning for multifocal pneumonia possibly of aspiration etiology given that there is fluid up to the midthoracic esophagus. There are some filling defects to the bronchi associated to the left lower lobe. 2. Scattered small multi station mediastinal lymph nodes are not pathologically enlarged and may be reactive. -With tracheostomy in place -Immunocompromise state s/p radiation, chemotherapy Plan -Trach care -HAG -Nebulizer treatments as needed -Sputum cultures -Blood cultures -Vancomycin -Meropenem -Monitor clinical status closely Sepsis, sepsis features met given pneumonia, possible infection around right mandibulectomy site, elevated lactic acid History of squamous cell carcinoma of the right mandible ? Status post mandibulectomy neck -Status post implant of hardware ? Status post hardware removal of right mandible due to infection, from what describes possible necrotizing fasciitis? Require prolonged IV antibiotics hospitalization ? Status post skin flap creation right mandible ? Status post chemo and radiation therapy ? Followed by ENT, oncology, radiation oncology, [facility] ? Concern for cellulitis, possible deep tissue infection ?h as erythema, swelling, tenderness throughout right neck, right jaw area, irregular borders measuring 10 x 10 cm with areas with healing superficial wounds, that have been packed elevated CRP -Continue IV antibiotics as above -CT neck ordered by ER physician PEG tube feedings, start trickle tube feeds Type 2 diabetes mellitus, moderate dose sliding scale History of CAD -Continue aspirin, statin Dehydration, IV fluids Full code Lovenox for DVT prophylaxis Attestations 2 Medical Necessity Statement*: Patient requires hospitalization for multifocal pneumonia concern for possible infection around right mandibulectomy site, sepsis, inpatient, greater than 2 midnights Diagnoses Multifocal pneumonia J18.9 Type 2 diabetes mellitus E11.9 CAD (coronary artery disease) I25.10 Squamous cell carcinoma of mandible C41.1 PEG (percutaneous endoscopic gastrostomy) status Z93.1 Tracheostomy dependent Z93.0 Sepsis A41.9 Acute hypoxic respiratory failure J96.01
[2024-09-20 18:48] LABS: Erythrocyte Sedimentation Rate 20 mm/hr (0-10)
--- NOTE | 2024-09-20 19:01 | PHA.VACGOAL ---
Vancomycin Goal - Goal Vancomycin Goal:: 10-15 mg/L Vancomycin Indication:: Other - Therapy Current therapy:: Meropenem Day of therpy:: Day 1 of [] Actual body weight (kg): 200 lb - Data Labs: WBC 5.72 10^3/uL (3.29-11.43) 09/20/24 15:36 RBC 4.12 10^6/uL (3.85-5.65) 09/20/24 15:36 Hgb 11.70 g/dL (11.27-16.99) 09/20/24 15:36 Hct 37.0 % (37-53) 09/20/24 15:36 MCV 89.8 fl (82-101) 09/20/24 15:36 MCH 28.4 pg (27-33) 09/20/24 15:36 MCHC 31.6 g/dL (30-55) 09/20/24 15:36 RDW 17.2 % (12.1-15.1) H 09/20/24 15:36 Sodium 140 mmol/L (136-145) 09/20/24 15:36 Potassium 4.2 mmol/L (3.5-5.1) 09/20/24 15:36 Chloride 95 mmol/L (98-107) L 09/20/24 15:36 Carbon Dioxide 29 mmol/L (22-29) 09/20/24 15:36 Anion Gap 20.2 (5-19) H 09/20/24 15:36 BUN 21 mg/dL (8-23) 09/20/24 15:36 Creatinine 0.5 mg/dL (0.7-1.2) L 09/20/24 15:36 GFR Calculation 165.9 mL/min (90-130) H 09/20/24 15:36 Last dialysis session:: N/A Treatment plan:: new consult Regimen:: INITIAL DOSE OF 1000 MG Q8H Follow up:: WILL CONTINUE TO MONITOR AND FOLLOW UP DAILY
[2024-09-20 19:12] LABS: Troponin(5th) Baseline 31 ng/L (0-15)
[2024-09-20 19:22] LABS: Chol HDL Ratio 3.35 mg/dL (1.0-5.00); Cholesterol 114 mg/dL (0-200); HDL Cholesterol 34 mg/dL (60-100); LDL Cholesterol Calculated 61 mg/dL (50-129); LDL HDL Ratio 1.79 RATIO (0.00-3.22); NT Pro B Type Natriuretic Pept 1217 pg/mL (0-125); Triglycerides 97 mg/dL (0-150)
[2024-09-20] MEDS: enoxaparin 40 mg/0.4 mL Syringe SUBCUT (19:28)
[2024-09-20] MEDS: sodium chloride 0.9% 1,000 ML 75 ML IV (19:29)
[2024-09-20] MEDS: pantoprazole 40 mg SDV IVP (19:29)
[2024-09-20] MEDS: piperacillin-tazobactam 3.375 GM in sodium chloride 0.9% (plus) 50 ML IV (19:29)
[2024-09-20 20:08] LABS: Estmated Average Glucose 137; Hemoglobin A1C 6.4 % (4.0-6.0)
[2024-09-20] MEDS: VANCOMYCIN ADD-Vantage 1,000 MG in 0.9% NaCl ADD-Vantage 250 ML 250 MG IV (20:22)
[2024-09-20 21:25] LABS: Lactic Sepsis W/Reflex 3.4 mmol/L (0.5-2.2)
[2024-09-20 22:29] LABS: Glucose Point of Care 229 mg/dL (70-110)
[2024-09-20] MEDS: insulin lispro 100 unit/1 mL SUBCUT (22:32)
[2024-09-20 22:43] LABS: Reflex Lactate Order REFLEX LACTIC ORDERD
[2024-09-20 23:59] LABS: Lactic Acid level (Lactate) 2.5 mmol/L (0.5-2.2)
[2024-09-21] VITALS (40 sets, daily range): BP systolic 98–150; BP diastolic 51–89; PULSE 65–96; RESP 9–24; TEMP 36.8; O2SAT 87–100
[2024-09-21] MEDS: gabapentin 300 mg Capsule PO ×4 (00:21→20:33)
--- NOTE | 2024-09-21 00:22 | ECG_ITS ---
[facility] Test Date: 2024-09-21 Pat Name: Santo Smith Department: Room: 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 Measurements Intervals [place] Rate: 80 P: 56 LA: 179 QRS: 43 QRSD: 94 T: 80 QT: 406 QTc: 469 Interpretive Statements SINUS RHYTHM MODERATE ST DEPRESSION [0.05+ mV ST DEPRESSION] poor R wave progression Compared to ECG 09/20/2024 18:51:57 Myocardial infarct finding no longer present ST (T wave) deviation still present Electronically Signed On 09-21-2024 13:52:21 RESEARCH PHYSIOLOGIST by Lupillo Erickson M.D. [email or web address]
[2024-09-21] MEDS: ondansetron 2 mg/ML SDV 2 mL 4 MG IVP ×3 (01:21→20:33)
[2024-09-21 01:29] LABS: Adenovirus Not Detected (NOT DETECT); Chlamydia Pneumoniae Not Detected (NOT DETECT); Coronavirus 229E,HKU1,NL63,OC4 Not Detected (NOT DETECT); Human Metapneumovirus Not Detected (NOT DETECT); Human Rhinovirus/Enterovirus Not Detected (NOT DETECT); Influenza A Not Detected (NOT DETECT); Influenza A H1 Not Detected (NOT DETECT); Influenza A H1-2009 Not Detected (NOT DETECT); Influenza A H3 Not Detected (NOT DETECT); Influenza B Not Detected (NOT DETECT); Mycoplasma Pneumoniae Not Detected (NOT DETECT); Parainfluenza Virus Type 1 Not Detected (NOT DETECT); Parainfluenza Virus Type 2 Not Detected (NOT DETECT); Parainfluenza Virus Type 3 Not Detected (NOT DETECT); Parainfluenza Virus Type 4 Not Detected (NOT DETECT); Respiratory Syncytial Virus A Not Detected (NOT DETECT); Respiratory Syncytial Virus B Not Detected (NOT DETECT); SARS-COV-2 Not Detected (NOT DETECT)
[2024-09-21] MEDS: meropenem 500 mg SDV IVP ×3 (02:14→17:38)
[2024-09-21] MEDS: VANCOMYCIN ADD-Vantage 1,000 MG in 0.9% NaCl ADD-Vantage 250 ML 250 MG IV ×3 (02:15→17:49)
[2024-09-21 04:50] LABS: Basophils % 0.3 %; Eosinophils % 0.2 %; Hematocrit 32.2 % (37-53); Lymphocytes # 0.3 10^3/uL (0.8-4.8); Lymphocytes % 4.3 %; Mean Corpuscular HGB Conc 31.1 g/dL (30-55); Mean Corpuscular Hemoglobin 28.5 pg (27-33); Mean Corpuscular Volume 91.7 fl (82-101); Mean Platelet Volume 8.8 fL (7.4-10.4); Monocytes # 0.7 10^3/uL (0.2-0.9); Monocytes % 12.2 %; Neutrophils # 4.95 10^3/uL (1.8-7.7); Neutrophils % 82.8 %; Nucleated Red Blood Cells % 0 %; Platelet Count 290 10^3/cmm (157-399); Red Blood Count 3.51 10^6/uL (3.85-5.65); Red Cell Distribution Width 17.5 % (12.1-15.1); White Blood Count 5.98 10^3/uL (3.29-11.43)
[2024-09-21 05:11] LABS: Alanine Aminotransferase 13 U/L (0-41); Albumin Level 3.1 g/dL (3.5-5.2); Alkaline Phosphatase 79 U/L (40-130); Anion Gap 17.9 (5-19); Aspartate Amino Transferase 15 U/L (0-40); Blood Urea Nitrogen 19 mg/dL (8-23); C Reactive Protein 126.9 mg/L (0.0-4.9); Calcium 8.8 mg/dL (8.5-10.5); Carbon Dioxide 27 mmol/L (22-29); Chloride 106 mmol/L (98-107); Creatinine Clr Calc Pharmacy 104.9973; Globulin 3.3 g/dL (1.3-4.6); Glomerular Filtration Rate 165.9 mL/min (90-130); Glucose 153 mg/dL (65-115); Magnesium 2.1 mg/dL (1.7-2.3); Osmolality Calculated 309 mOsm/kg (285-295); Phosphorus 4.1 mg/dL (2.5-4.5); Potassium 3.9 mmol/L (3.5-5.1); Sodium 147 mmol/L (136-145); Total Bilirubin 0.3 mg/dL (0.15-1.2); Total Protein 6.4 g/dL (6.6-8.7)
[2024-09-21 05:19] LABS: Procalcitonin 0.22 ng/mL (0-0.5)
[2024-09-21] MEDS: ipratropium-albuterol 3 mL Neb INHALATION ×4 (07:31→19:36)
[2024-09-21] MEDS: budesonide 0.5 mg/2 mL Neb INHALATION ×2 (07:31→19:36)
[2024-09-21 08:03] LABS: Glucose Point of Care 304 mg/dL (70-110)
--- NOTE | 2024-09-21 08:14 | USCV_ITS ---
Santo Smith Age: 69 Gender: M : 1955 Exam Date: 09/21/2024 08:35 Ordering Phys: David Pierre MD Technologist: Exam Location: [facility] [place] Indication: nstemi BP: 131 / 69 HR: 86 Rhythm: Sinus Technical Quality: Adequate MEASUREMENTS (Male / Female) Normal Values 2D ECHO LV Diastolic Diameter PLAX 3.5 cm 4.2 - 5.9 / 3.9 - 5.3 cm IVS Diastolic Thickness 1.1 cm 0.6 - 1.0 / 0.6 - 0.9 cm IVS Systolic Thickness 1.5 cm LVPW Diastolic Thickness 1.4 cm 0.6 - 1.0 / 0.6 - 0.9 cm LVPW Systolic Thickness 1.6 cm LVOT Diameter 2.1 cm LV Ejection Fraction 2D Teich 66.8 % LV Ejection Fraction MOD 4C 46.3 % LV Ejection Fraction MOD 2C 48.5 % LV Ejection Fraction 2C AL 47.2 % LA Diameter 2.9 cm RA Systolic Volume 4C AL 29.0 ml RA Systolic Volume 4C MOD 28.4 ml Aorta at Sinotubular Diameter 2.5 cm IVC Diameter 1.6 cm M-MODE LA Ao Ratio MM 1.6 AV Cusp Separation MM 2.9 cm DOPPLER AV Peak Velocity 116.0 cm/s LVOT Peak Velocity 85.0 cm/s AV Area Cont Eq vti 2.5 cm squared AV Area Cont Eq pk 2.5 cm squared MV Peak Velocity 118.0 cm/s MV Area PHT 5.6 cm squared Mitral E to A Ratio 0.8 TV Peak Velocity 156.5 cm/s TR Peak Velocity 162.0 cm/s TR Peak Gradient 10.5 mmHg TV Peak E Velocity 95.0 cm/s PV Peak Velocity 104.0 cm/s FINDINGS Left Ventricle Technically limited quality echocardiogram because of poor ultrasonic windows. Left ventricle is normal in size. LV systolic function is mildly reduced with EF of 40-45%. Mild global hypokinesis with moderate hypokinesis of the anterolateral and apical hankins. Right Ventricle Grossly normal Right Atrium Normal in size Left Atrium Normal in size Mitral Valve Structurally normal mitral valve. Mild mitral regurgitation. Aortic Valve Structurally normal aortic valve. No significant stenosis. Tricuspid Valve Mild tricuspid regurgitation. Insufficient TR jet to calculate RVSP Pulmonic Valve Not well visualized Pericardium Normal Aorta Normal in size IVC Appears to be normal CONCLUSIONS Technically limited quality echocardiogram because of poor ultrasonic windows. LV systolic function is mildly reduced with EF of 40 to 45%. Above-mentioned regional wall motion abnormalities. Mild mitral regurgitation. Mild tricuspid regurgitation. No comparison studies are available Cezar Eduardo MD (Electronically Signed) Final Date: 21 September 2024 09:37 S
[2024-09-21] MEDS: insulin lispro 100 unit/1 mL SUBCUT ×3 (08:15→20:44)
[2024-09-21] MEDS: aspirin 81 mg EC Tablet PO (08:16)
[2024-09-21] MEDS: atorvastatin 40 mg Tablet PO (08:16)
[2024-09-21] MEDS: sertraline 50 mg Tablet PO (08:16)
--- NOTE | 2024-09-21 11:14 | PC.NUTR ---
PEG tube feeding consult received. Recommend Glucerna 1.5 @ 10mls/hr increase 15mls Q8H as tolerated until goal rate of 55mls/hr is reached with FWF of 150mls Q4H or per MD discretion. Details in RD assessment.
[2024-09-21 11:30] LABS: Glucose Point of Care 331 mg/dL (70-110)
--- NOTE | 2024-09-21 11:47 | PC.NURSE ---
bloody stool x1, Dr. Pierre notified see mar for orders
[2024-09-21] MEDS: famotidine 20 mg Tablet PEG-TUBE (11:55)
[2024-09-21] MEDS: pantoprazole 40 mg SDV 80 MG IVP (11:55)
[2024-09-21 13:00] LABS: Hematocrit 30.2 % (37-53)
[2024-09-21] MEDS: sucralfate 1 gm/10 mL Oral Liq UDC PEG-TUBE ×3 (13:49→23:44)
--- NOTE | 2024-09-21 13:56 | P.PN_ITS ---
Subjective 2 Subjective: - Patient was seen this morning he is al ert to person, he follows commands, no acute events overnight, no Levophed was required, remains normotensive, -Discussed with patient given his elevat ed troponins, will do a cardiac echocardiogram -In the afternoon nursing staff message to me that patient had episode of bright red blood per rectum, bloody stool, -Ordered stat Protonix, Carafate, repeat hemoglobin -Patient was seen, hemodynamically stabl e, no significant tachycardia, bloody stools have resolved, DVT prophylaxis Lovenox postop, aspiration was stopped, monitor hemoglobin closely Protonix, Carafate, repeat hemoglobin 9.6 Vitals/I&O/Wt Last Vital Signs Temp 97.6 F 09/20/24 14:53 Pulse 82 09/21/24 12:00 Resp 19 H 09/21/24 12:00 BP 131/66 09/21/24 12:00 Pulse Ox 94 09/21/24 12:00 O2 Del Method CAG 09/21/24 07:42 O2 Flow Rate 3 09/20/24 17:38 FiO2 21 09/21/24 07:42 09/20/24 09/21/24 09/21/24 22:59 06:59 14:59 Intake Total 1250 / 1250 300 / 1550 Balance 1250 / 1250 300 / 1550 Weight last 48 hrs Weight 90 kg Weight 90 kg Weight 90.718 kg Physical Exam 2 Const: COMMON NORMALS: no acute distress HENMT: OTHER: Tracheostomy in place, trach collar Neck/C-Spine: OTHER: Of erythema, swelling, tenderness, along right anterior mandible area, right neck, is about the same compared to yesterday Resp: COMMON NORMALS: normal respiratory effort, No retractions, No use of accessory muscles and clear to auscultation bilaterally AUSCULTATION: clear to auscultation bilaterally Cardio: COMMON NORMALS: regular rate, regular rhythm, S1 normal heart sound present and S2 normal heart sound present RATE: regular rate RHYTHM: r egular rhythm HEART SOUNDS: S1 normal heart sound present and S2 normal heart sound present GI: COMMON NORMALS: Normal to inspection, nondistended, normoactive bowel sounds present and non-tender OTHER: PEG tube in place Extremity: COMMON NORMALS: no pedal edema Psych: COMMON NORMALS: mental status grossly normal Data 09/21/24 12:54 09/21/24 04:17 Micro: Microbiology 09/20/24 18:45 Gram Stain - Final Sputum - Endotracheal Tube Aspirate Sputum Culture - Preliminary 09/20/24 16:32 Blood Culture - Preliminary Blood SPECIMEN COLLECTED 09/20/24 16:27 Blood Culture - Preliminary Blood SPECIMEN COLLECTED A&P Assessment and plan (1) Multifocal pneumonia: (2) Type 2 diabetes mellitus: (3) CAD (coronary artery disease): (4) Squamous cell carcinoma of mandible: (5) PEG (percutaneous endoscopic gastrostomy) status: (6) Tracheostomy dependent: (7) Sepsis: (8) Acute hypoxic respiratory failure: (9) Acute anemia: (10) GI bleed: (11) Cellulitis: Plan Acute anemia, GI bleed -Hemoglobin down to 9.6, with bloody stool Plan -Monitor hemodynamics closely -Hold aspirin, Lovenox -Monitor hemoglobin every 4 hours -Protonix, Carafate -Levophed if needed -Transfuse if hemoglobin less than 8 Acute hypoxic respiratory failure Multifocal pneumonia -Seen on CT chest CT/CT chest abdpel w/*[id number] IMPRESSION: 1. Airspace disease in the left lung. Subtle ground-glass opacities also in the right lung as above. Findings are concerning for multifocal pneumonia possibly of aspiration etiology given that there is fluid up to the midthoracic esophagus. There are some filling defects to the bronchi associated to the left lower lobe. 2. Scattered small multi station mediastinal lymph nodes are not pathologically enlarged and may be reactive. 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 Since the most recent available prior CT 03/01/2024, there has been resection of the anterior midline mandible with numerous surgical clips in the adjacent submental soft tissues on the right and left. I suspect there is a soft tissue reconstruction flap present in the anterior submental region now. Correlate with clinical/surgical history. Tracheostomy now in place. 2. There is now irregularly-shaped mildly enhancing soft tissue in the midline and paramedian submental region at the site of previous presumed soft tissue neoplasm seen on previous CT just below the level of the anterior mandible and mandibular resection site as described above. It measures approximately 3.5 cm x 5 cm x 3 cm. This soft tissue is nonspecific but concerning for recurrent neoplasm versus part of the reconstruction flap which I feel is less likely. Follow-up PET-CT may be useful. 3. Along the left side of the lower face there appears to be abnormal swelling and enlargement of the left parotid gland new from prior CT. There is associated soft tissue swelling, stranding, and reticulation in the adjacent left facial tissues and subcutaneous tissues extending down to the level of the mandibular resection site. These changes are nonspecific and could be post therapeutic or possibly due to a superficial infectious process. Correlate clinically. 4. Since the prior CT, there are now extensive generalized soft tissue changes throughout the neck compatible with presumed post therapeutic/post radiation/postsurgical changes. ? Status post mandibulectomy, anterior midline mandible -Status post implant of hardware ? Status post hardware removal of right mandible due to infection, from what describes possible necrotizing fasciitis? Require prolonged IV antibiotics hospitalization ? Status post skin flap creation right mandible ? Status post chemo and radiation therapy ? Followed by ENT, oncology, radiation oncology, [facility] ? Concern for cellulitis, p as erythema, swelling, tenderness throughout right neck, right jaw area, irregular borders measuring 10 x 10 cm with areas with healing superficial wounds, that have been packed elevated CRP -Continue IV antibiotics as above PEG tube feedings, start trickle tube feeds Type 2 diabetes mellitus, moderate dose sliding scale History of CAD -Continue aspirin, statin Dehydration, IV fluids Full code scd for DVT prophylaxis Attestations 2 Medical Necessity Statement*: Patient requires hospitalization, inpatient, greater than 2 midnights for pneumonia, cellulitis, GI bleed Diagnoses Multifocal pneumonia J18.9 Type 2 diabetes mellitus E11.9 CAD (coronary artery disease) I25.10 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
[2024-09-21 15:58] LABS: Hematocrit 29.6 % (37-53)
[2024-09-21 17:25] LABS: Glucose Point of Care 116 mg/dL (70-110)
[2024-09-21] MEDS: pantoprazole 40 mg SDV IVP (17:38)
[2024-09-21 18:36] LABS: Vancomycin Trough 17.7 ug/mL (10-15)
[2024-09-21 20:30] LABS: Glucose Point of Care 173 mg/dL (70-110)
[2024-09-21 20:37] LABS: Hematocrit 29.6 % (37-53)
[2024-09-22] VITALS (29 sets, daily range): BP systolic 99–166; BP diastolic 49–76; PULSE 77–95; RESP 14–23; TEMP 36.8; O2SAT 76–100
[2024-09-22] MEDS: meropenem 500 mg SDV IVP (01:54)
[2024-09-22] MEDS: VANCOMYCIN ADD-Vantage 1,000 MG in 0.9% NaCl ADD-Vantage 250 ML 250 MG IV ×3 (02:01→17:57)
[2024-09-22] MEDS: ondansetron 2 mg/ML SDV 2 mL 4 MG IVP ×3 (03:32→21:03)
[2024-09-22 03:47] LABS: Basophils % 0.4 %; Eosinophils % 0.4 %; Hematocrit 31.2 % (37-53); Lymphocytes # 0.3 10^3/uL (0.8-4.8); Lymphocytes % 5.8 %; Mean Corpuscular HGB Conc 30.4 g/dL (30-55); Mean Corpuscular Hemoglobin 28.3 pg (27-33); Mean Corpuscular Volume 92.9 fl (82-101); Mean Platelet Volume 8.8 fL (7.4-10.4); Monocytes # 0.6 10^3/uL (0.2-0.9); Monocytes % 11.7 %; Neutrophils # 4.19 10^3/uL (1.8-7.7); Neutrophils % 81.3 %; Nucleated Red Blood Cells % 0 %; Platelet Count 296 10^3/cmm (157-399); Red Blood Count 3.36 10^6/uL (3.85-5.65); Red Cell Distribution Width 17.6 % (12.1-15.1); White Blood Count 5.15 10^3/uL (3.29-11.43)
[2024-09-22 04:11] LABS: Alanine Aminotransferase 12 U/L (0-41); Albumin Level 3.1 g/dL (3.5-5.2); Alkaline Phosphatase 75 U/L (40-130); Anion Gap 18.4 (5-19); Aspartate Amino Transferase 15 U/L (0-40); Blood Urea Nitrogen 19 mg/dL (8-23); Calcium 9.3 mg/dL (8.5-10.5); Carbon Dioxide 23 mmol/L (22-29); Chloride 104 mmol/L (98-107); Creatinine Clr Calc Pharmacy 104.6333; Globulin 2.8 g/dL (1.3-4.6); Glomerular Filtration Rate 165.9 mL/min (90-130); Glucose 168 mg/dL (65-115); Osmolality Calculated 300 mOsm/kg (285-295); Phosphorus 3.4 mg/dL (2.5-4.5); Potassium 3.4 mmol/L (3.5-5.1); Sodium 142 mmol/L (136-145); Total Bilirubin 0.3 mg/dL (0.15-1.2); Total Protein 5.9 g/dL (6.6-8.7)
[2024-09-22 04:22] LABS: Procalcitonin 0.15 ng/mL (0-0.5)
[2024-09-22] MEDS: sucralfate 1 gm/10 mL Oral Liq UDC PEG-TUBE ×3 (06:28→17:58)
[2024-09-22] MEDS: pantoprazole 40 mg SDV IVP ×2 (06:28→17:56)
[2024-09-22] MEDS: budesonide 0.5 mg/2 mL Neb INHALATION ×2 (07:32→20:17)
[2024-09-22] MEDS: ipratropium-albuterol 3 mL Neb INHALATION ×4 (07:32→20:17)
[2024-09-22 08:08] LABS: Hematocrit 32.6 % (37-53)
[2024-09-22 08:15] LABS: Glucose Point of Care 305 mg/dL (70-110)
[2024-09-22] MEDS: insulin lispro 100 unit/1 mL SUBCUT ×4 (08:18→20:16)
[2024-09-22] MEDS: chlorhexidine gluconate 0.12% Btl 473 mL 15 ML MUCOUS MEM ×2 (08:19→17:55)
[2024-09-22] MEDS: atorvastatin 40 mg Tablet PO (08:20)
[2024-09-22] MEDS: gabapentin 300 mg Capsule PO ×3 (08:20→20:16)
[2024-09-22] MEDS: sertraline 50 mg Tablet PO (08:20)
[2024-09-22] MEDS: meropenem 1,000 mg SDV 1000 MG IVP ×2 (10:03→17:56)
[2024-09-22 11:36] LABS: Glucose Point of Care 168 mg/dL (70-110)
[2024-09-22] MEDS: polyethylene glycol 3350 Pkt 17 gm PO (14:54)
--- NOTE | 2024-09-22 15:14 | PM.PN ---
Subjective Subjective: Patient was seen this morning, no bloody black stools overnight, does report abdominal bloating, Vitals/I&O/Wt Last Vital Signs Temp 98.3 F 09/21/24 20:00 Pulse 89 09/22/24 12:00 Resp 18 09/22/24 12:00 BP 138/59 09/22/24 12:00 Pulse Ox 97 09/22/24 12:00 O2 Del Method CAG 09/22/24 11:05 O2 Flow Rate 8 09/21/24 19:37 FiO2 21 09/22/24 11:05 09/22/24 09/22/24 09/22/24 06:59 14:59 22:59 Intake Total 250 / 813 Output Total 400 / 1650 Balance -150 / -837 Weight last 48 hrs Weight 86.5 kg Weight 90 kg Weight 90 kg Physical Exam Const: COMMON NORMALS: no acute distress and patient oriented x3 Resp: COMMON NORMALS: normal respiratory effort, No retractions and No use of accessory muscles AUSCULTATION: crackles and wheezes Cardio: COMMON NORMALS: regular rate, regular rhythm, S1 normal heart sound present and S2 normal heart sound present RATE: regular rate RHYTHM: regular rhythm HEART SOUNDS: S1 normal heart sound present and S2 normal heart sound present GI: COMMON NORMALS: Normal to inspection, nondistended, normoactive bowel sounds present and non-tender Extremity: COMMON NORMALS: no pedal edema Neuro: COMMON NORMALS: patient oriented x3 Psych: COMMON NORMALS: mental status grossly normal Data 09/22/24 07:57 09/22/24 03:08 Micro: Microbiology 09/20/24 18:45 Gram Stain - Final Sputum - Endotracheal Tube Aspirate Sputum Culture - Preliminary Gram Negative Rods Gram Negative Rods#2 09/20/24 16:32 Blood Culture - Preliminary Blood NEGATIVE TO DATE 09/20/24 16:27 Blood Culture - Preliminary Blood NEGATIVE TO DATE A&P Assessment and plan (1) Multifocal pneumonia: (2) Type 2 diabetes mellitus: (3) CAD (coronary artery disease): (4) Squamous cell carcinoma of mandible: (5) PEG (percutaneous endoscopic gastrostomy) status: (6) Tracheostomy dependent: (7) Sepsis: (8) Acute hypoxic respiratory failure: (9) Acute anemia: (10) GI bleed: (11) Cellulitis: Plan Acute anemia, GI bleed -Hemoglobin down to 10, with bloody stool Plan -Monitor hemodynamics closely -Hold aspirin, Lovenox -Monitor hemoglobin every 4 hours -Protonix, Carafate -Levophed if needed -Transfuse if hemoglobin less than 8 Acute hypoxic respiratory failure Multifocal pneumonia, sputum culture showing gram-negative rods -Seen on CT chest CT/CT chest abdpel w/*[id number] IMPRESSION: 1. Airspace disease in the left lung. Subtle ground-glass opacities also in the right lung as above. Findings are concerning for multifocal pneumonia possibly of aspiration etiology given that there is fluid up to the midthoracic esophagus. There are some filling defects to the bronchi associated to the left lower lobe. 2. Scattered small multi station mediastinal lymph nodes are not pathologically enlarged and may be reactive. -With tracheostomy in place -Immunocompromise state s/p radiation, chemotherapy Plan -Trach care -HAG -Nebulizer treatments as needed -Sputum cultures -Blood cultures -Vancomycin -Meropenem -Monitor clinical status closely Sepsis, sepsis features met given pneumonia, possible infection around right mandibulectomy site, elevated lactic acid History of squamous cell carcinoma of the anterior midline mandible but now with erythema, swelling, tenderness, concern for cellulitis -CT neck CT/CT neck w con* [id number] IMPRESSION: 1. Since the most recent available prior CT 03/01/2024, there has been resection of the anterior midline mandible with numerous surgical clips in the adjacent submental soft tissues on the right and left. I suspect there is a soft tissue reconstruction flap present in the anterior submental region now. Correlate with clinical/surgical history. Tracheostomy now in place. 2. There is now irregularly-shaped mildly enhancing soft tissue in the midline and paramedian submental region at the site of previous presumed soft tissue neoplasm seen on previous CT just below the level of the anterior mandible and mandibular resection site as described above. It measures approximately 3.5 cm x 5 cm x 3 cm. This soft tissue is nonspecific but concerning for recurrent neoplasm versus part of the reconstruction flap which I feel is less likely. Follow-up PET-CT may be useful. 3. Along the left side of the lower face there appears to be abnormal swelling and enlargement of the left parotid gland new from prior CT. There is associated soft tissue swelling, stranding, and reticulation in the adjacent left facial tissues and subcutaneous tissues extending down to the level of the mandibular resection site. These changes are nonspecific and could be post therapeutic or possibly due to a superficial infectious process. Correlate clinically. 4. Since the prior CT, there are now extensive generalized soft tissue changes throughout the neck compatible with presumed post therapeutic/post radiation/postsurgical changes. ? Status post mandibulectomy, anterior midline mandible -Status post implant of hardware ? Status post hardware removal of right mandible due to infection, from what describes possible necrotizing fasciitis? Require prolonged IV antibiotics hospitalization ? Status post skin flap creation right mandible ? Status post chemo and radiation therapy ? Followed by ENT, oncology, radiation oncology, [facility] ? Concern for cellulitis, p as erythema, swelling, tenderness throughout right neck, right jaw area, irregular borders measuring 10 x 10 cm with areas with healing superficial wounds, that have been packed elevated CRP -Continue IV antibiotics as above PEG tube feedings, start trickle tube feeds Type 2 diabetes mellitus, moderate dose sliding scale History of CAD -Continue aspirin, statin Dehydration, Full code scd for DVT prophylaxis Attestations Medical Necessity Statement*: Patient requires hospitalization for cellulitis, pneumonia, GI bleed Diagnoses Multifocal pneumonia J18.9 Type 2 diabetes mellitus E11.9 CAD (coronary artery disease) I25.10 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
[2024-09-22 16:38] LABS: Glucose Point of Care 249 mg/dL (70-110)
--- NOTE | 2024-09-22 18:52 | PC.NURSE ---
Shift summary: Patient became nauseous when tube feeds were started dr. Pierre aware of need to cut tube feeds in half and stop at times, informed this nurse of home wound care orders which were started see message to nurse, tolerated being up to chair well.
[2024-09-22 20:04] LABS: Glucose Point of Care 165 mg/dL (70-110)
[2024-09-22] MEDS: saliva stimulant spray 30 mL Btl 1 SPRAY MUCOUS MEM (21:12)
[2024-09-22] MEDS: metoclopramide 5 mg/mL SDV 2 mL IVP (23:28)
[2024-09-23] VITALS (26 sets, daily range): BP systolic 100–155; BP diastolic 38–65; PULSE 69–90; RESP 11–29; TEMP 36.4–36.8; O2SAT 78–100; BMI 25.7
[2024-09-23] MEDS: sucralfate 1 gm/10 mL Oral Liq UDC PEG-TUBE ×4 (00:10→17:59)
[2024-09-23] MEDS: VANCOMYCIN ADD-Vantage 1,000 MG in 0.9% NaCl ADD-Vantage 250 ML 250 MG IV ×3 (02:36→20:01)
[2024-09-23] MEDS: meropenem 1,000 mg SDV 1000 MG IVP ×3 (02:36→17:59)
[2024-09-23] MEDS: ondansetron 2 mg/ML SDV 2 mL 4 MG IVP (05:28)
[2024-09-23] MEDS: pantoprazole 40 mg SDV IVP ×2 (05:28→17:59)
[2024-09-23] MEDS: saliva stimulant spray 30 mL Btl 1 SPRAY MUCOUS MEM (05:29)
[2024-09-23 05:37] LABS: Basophils % 0.4 %; Eosinophils # 0.1 10^3/uL (0.0-0.8); Eosinophils % 2.4 %; Hematocrit 36.7 % (37-53); Lymphocytes # 0.4 10^3/uL (0.8-4.8); Lymphocytes % 6.9 %; Mean Corpuscular Hemoglobin 29.3 pg (27-33); Mean Corpuscular Volume 97.6 fl (82-101); Mean Platelet Volume 8.6 fL (7.4-10.4); Monocytes # 0.6 10^3/uL (0.2-0.9); Monocytes % 12.4 %; Neutrophils # 3.93 10^3/uL (1.8-7.7); Neutrophils % 77.5 %; Nucleated Red Blood Cells % 0 %; Platelet Count 297 10^3/cmm (157-399); Red Blood Count 3.76 10^6/uL (3.85-5.65); White Blood Count 5.07 10^3/uL (3.29-11.43)
[2024-09-23 06:00] LABS: Alanine Aminotransferase 12 U/L (0-41); Albumin Level 3.2 g/dL (3.5-5.2); Alkaline Phosphatase 75 U/L (40-130); Anion Gap 20.1 (5-19); Aspartate Amino Transferase 13 U/L (0-40); Blood Urea Nitrogen 21 mg/dL (8-23); C Reactive Protein 43.9 mg/L (0.0-4.9); Carbon Dioxide 23 mmol/L (22-29); Chloride 107 mmol/L (98-107); Globulin 3.2 g/dL (1.3-4.6); Glomerular Filtration Rate 165.9 mL/min (90-130); Glucose 190 mg/dL (65-115); Magnesium 1.9 mg/dL (1.7-2.3); Osmolality Calculated 312 mOsm/kg (285-295); Phosphorus 3.1 mg/dL (2.5-4.5); Potassium 3.1 mmol/L (3.5-5.1); Sodium 147 mmol/L (136-145); Total Bilirubin 0.3 mg/dL (0.15-1.2); Total Protein 6.4 g/dL (6.6-8.7)
[2024-09-23] MEDS: acetaminophen 650 mg/20.3 mL UDC PEG-TUBE (06:00)
--- NOTE | 2024-09-23 06:16 | PC.NURSE ---
Pain Patient complaining of pain at a 7 on a numerical 1-10 pain scale. Morphine and tylenol available; patient requested tylenol. Tylenol liquid administered through peg tube.
[2024-09-23 06:25] LABS: Procalcitonin 0.08 ng/mL (0-0.5)
[2024-09-23 07:34] LABS: Glucose Point of Care 231 mg/dL (70-110)
[2024-09-23] MEDS: ipratropium-albuterol 3 mL Neb INHALATION ×4 (08:10→20:20)
[2024-09-23] MEDS: budesonide 0.5 mg/2 mL Neb INHALATION ×2 (08:10→20:20)
[2024-09-23] MEDS: insulin lispro 100 unit/1 mL SUBCUT ×4 (08:51→20:56)
[2024-09-23] MEDS: sertraline 50 mg Tablet PO (08:52)
[2024-09-23] MEDS: atorvastatin 40 mg Tablet PO (08:52)
[2024-09-23] MEDS: chlorhexidine gluconate 0.12% Btl 473 mL 15 ML MUCOUS MEM ×2 (08:52→17:59)
[2024-09-23] MEDS: gabapentin 300 mg Capsule PO ×3 (08:52→20:03)
--- NOTE | 2024-09-23 09:33 | XRR_ITS ---
PROCEDURE INFORMATION: Exam: XR Abdomen Exam date and time: 09/23/2024 10:29 AM Age: 69 years old Clinical indication: Abdominal pain; Acute TECHNIQUE: Imaging protocol: Radiologic exam of the abdomen. Views: Frontal supine view of the abdomen. 1 View. COMPARISON: CT chest abdpel w/*[id number] 09/20/2024 4:56 PM FINDINGS: Tubes, catheters and devices: Left upper quadrant gastrostomy tube Gastrointestinal tract: Nonspecific bowel gas pattern Bones/joints: Lumbar spondylosis. Marked bilateral degenerative changes of the hip joints. XR/XR KUB portable [id number] IMPRESSION: 1. No bowel dilatation 2. No free intra-abdominal air.
[2024-09-23] MEDS: lidocaine 1% 5 ML in potassium chloride premix 100 ML 26.25 ML IV (10:10)
[2024-09-23 10:29] LABS: Vancomycin Trough 18.7 ug/mL (10-15)
[2024-09-23] MEDS: water for injection-sterile 10 ML 10000 ML (10:44)
[2024-09-23 11:58] LABS: Glucose Point of Care 280 mg/dL (70-110)
[2024-09-23] MEDS: aspirin 81 mg Chew Tablet PEG-TUBE (12:49)
[2024-09-23] MEDS: bisacodyl 5 mg Tablet 10 MG PEG-TUBE (12:49)
[2024-09-23] MEDS: polyethylene glycol 3350 Pkt 17 gm PEG-TUBE (12:50)
--- NOTE | 2024-09-23 13:27 | PC.NURSE ---
report called to floor and transfered to room 264 at this time dressing CANGES DONE
--- NOTE | 2024-09-23 15:11 | P.PN_ITS ---
Subjective 2 Subjective: Patient was seen this morning is alert to person, he follows commands, no acute events overnight, has no significant complaints except that he cannot tolerate the PEG tube feedings complaining of abdominal pain, discussed placing on a bowel regimen doing a KUB starting Reglan but he is not developing hyponatremia we will have to try to feed him today, agreeable start him on trickle tube feeding Vitals/I&O/Wt Last Vital Signs Temp 98.3 F 09/23/24 13:28 Pulse 75 09/23/24 13:28 Resp 16 09/23/24 13:28 BP 134/64 09/23/24 13:28 Pulse Ox 95 09/23/24 13:28 O2 Del Method Trach Collar 09/23/24 13:28 O2 Flow Rate 8 09/22/24 20:17 FiO2 21 09/23/24 12:05 09/23/24 09/23/24 09/23/24 06:59 14:59 22:59 Intake Total 250 / 750 260 / 260 Output Total 750 / 1250 500 / 500 Balance -500 / -500 -240 / -240 Weight last 48 hrs Weight 86 kg Weight 86.5 kg Physical Exam 2 Const: COMMON NORMALS: no acute distress Resp: COMMON NORMALS: normal respiratory effort, No retractions, No use of accessory muscles and clear to auscultation bilaterally AUSCULTATION: clear to auscultation bilaterally Cardio: COMMON NORMALS: regular rate, regular rhythm, S1 normal heart sound present and S2 normal heart sound present RATE: regular rate RHYTHM: r egular rhythm HEART SOUNDS: S1 normal heart sound present and S2 normal heart sound present GI: COMMON NORMALS: Normal to inspection, nondistended, normoactive bowel sounds present and non-tender Extremity: COMMON NORMALS: no pedal edema Psych: COMMON NORMALS: mental status grossly normal Skin: NARRATIVE SKIN EXAM: Area of cellulitis, around the neck area significantly improving, area of erythema improving with Data 09/23/24 05:21 09/23/24 05:21 Micro: Microbiology 09/20/24 18:45 Gram Stain - Final Sputum - Endotracheal Tube Aspirate Sputum Culture - Final Citrobacter farmeri Pseudomonas aeruginosa A&P Assessment and plan (1) Multifocal pneumonia: (2) Type 2 diabetes mellitus: (3) CAD (coronary artery disease): (4) Squamous cell carcinoma of mandible: (5) PEG (percutaneous endoscopic gastrostomy) status: (6) Tracheostomy dependent: (7) Sepsis: (8) Acute hypoxic respiratory failure: (9) Acute anemia: (10) GI bleed: (11) Cellulitis: Plan Acute anemia, GI bleed, resolved -Hemoglobin down to 10, with bloody stool Plan -Monitor hemodynamics closely -Hold Lovenox -Monitor hemoglobin every 4 hours -Protonix, Carafate -Transfuse if hemoglobin less than 8 Acute hypoxic respiratory failure Multifocal pneumonia, sputum culture showing gram-negative rods -Seen on CT chest CT/CT chest abdpel w/*[id number] IMPRESSION: 1. Airspace disease in the left lung. Subtle ground-glass opacities also in the right lung as above. Findings are concerning for multifocal pneumonia possibly of aspiration etiology given that there is fluid up to the midthoracic esophagus. There are some filling defects to the bronchi associated to the left lower lobe. 2. Scattered small multi station mediastinal lymph nodes are not pathologically enlarged and may be reactive. -With tracheostomy in place -Immunocompromise state s/p radiation, chemotherapy ? Sputum cultures growing Pseudomonas, Citrobacter Plan -Trach care -HAG -Nebulizer treatments as needed -Sputum cultures -Blood cultures -Vancomycin -Meropenem -Monitor clinical status closely Sepsis, sepsis features met given pneumonia, possible infection around right mandibulectomy site, elevated lactic acid History of squamous cell carcinoma of the anterior midline mandible but now with erythema, swelling, tenderness, concern for cellulitis -CT neck CT/CT neck w con* [id number] IMPRESSION: 1. Since the most recent available prior CT 03/01/2024, there has been resection of the anterior midline mandible with numerous surgical clips in the adjacent submental soft tissues on the right and left. I suspect there is a soft tissue reconstruction flap present in the anterior submental region now. Correlate with clinical/surgical history. Tracheostomy now in place. 2. There is now irregularly-shaped mildly enhancing soft tissue in the midline and paramedian submental region at the site of previous presumed soft tissue neoplasm seen on previous CT just below the level of the anterior mandible and mandibular resection site as described above. It measures approximately 3.5 cm x 5 cm x 3 cm. This soft tissue is nonspecific but concerning for recurrent neoplasm versus part of the reconstruction flap which I feel is less likely. Follow-up PET-CT may be useful. 3. Along the left side of the lower face there appears to be abnormal swelling and enlargement of the left parotid gland new from prior CT. There is associated soft tissue swelling, stranding, and reticulation in the adjacent left facial tissues and subcutaneous tissues extending down to the level of the mandibular resection site. These changes are nonspecific and could be post therapeutic or possibly due to a superficial infectious process. Correlate clinically. 4. Since the prior CT, there are now extensive generalized soft tissue changes throughout the neck compatible with presumed post therapeutic/post radiation/postsurgical changes. ? Status post mandibulectomy, anterior midline mandible -Status post implant of hardware ? Status post hardware removal of right mandible due to infection, from what describes possible necrotizing fasciitis? Require prolonged IV antibiotics hospitalization ? Status post skin flap creation right mandible ? Status post chemo and radiation therapy ? Followed by ENT, oncology, radiation oncology, [facility] ? Concern for cellulitis, p as erythema, swelling, tenderness throughout right neck, right jaw area, irregular borders measuring 10 x 10 cm with areas with healing superficial wounds, that have been packed elevated CRP -Continue IV antibiotics as above PEG tube feedings, start trickle tube feeds Type 2 diabetes mellitus, moderate dose sliding scale History of CAD -Continue aspirin, statin Dehydration, Full code scd for DVT prophylaxis Attestations 2 Medical Necessity Statement*: Plan for today start tube feeds, bowel regimen, KUB, continue IV antibiotics Diagnoses Multifocal pneumonia J18.9 Type 2 diabetes mellitus E11.9 CAD (coronary artery disease) I25.10 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
[2024-09-23 16:41] LABS: Glucose Point of Care 539 mg/dL (70-110)
[2024-09-23 16:47] LABS: Glucose Point of Care 153 mg/dL (70-110)
[2024-09-23 20:39] LABS: Glucose Point of Care 384 mg/dL (70-110)
[2024-09-24] VITALS (9 sets, daily range): BP systolic 121–154; BP diastolic 52–75; PULSE 72–80; RESP 16–19; TEMP 36.5–36.7; O2SAT 91–96
[2024-09-24] MEDS: sucralfate 1 gm/10 mL Oral Liq UDC PEG-TUBE ×4 (00:12→17:49)
[2024-09-24] MEDS: VANCOMYCIN ADD-Vantage 1,000 MG in 0.9% NaCl ADD-Vantage 250 ML 250 MG IV ×3 (03:07→17:49)
[2024-09-24] MEDS: meropenem 1,000 mg SDV 1000 MG IVP ×3 (03:07→17:49)
[2024-09-24 03:33] LABS: Basophils % 0.4 %; Eosinophils # 0.1 10^3/uL (0.0-0.8); Eosinophils % 2.5 %; Hematocrit 31.7 % (37-53); Lymphocytes # 0.4 10^3/uL (0.8-4.8); Lymphocytes % 7.8 %; Mean Corpuscular HGB Conc 31.5 g/dL (30-55); Mean Corpuscular Hemoglobin 28.6 pg (27-33); Mean Corpuscular Volume 90.6 fl (82-101); Mean Platelet Volume 9.2 fL (7.4-10.4); Monocytes # 0.7 10^3/uL (0.2-0.9); Monocytes % 12.7 %; Neutrophils # 3.88 10^3/uL (1.8-7.7); Nucleated Red Blood Cells % 0 %; Platelet Count 246 10^3/cmm (157-399); Red Cell Distribution Width 18.1 % (12.1-15.1); White Blood Count 5.11 10^3/uL (3.29-11.43)
[2024-09-24 03:50] LABS: Alanine Aminotransferase 11 U/L (0-41); Albumin Level 3.1 g/dL (3.5-5.2); Alkaline Phosphatase 71 U/L (40-130); Anion Gap 14.9 (5-19); Aspartate Amino Transferase 13 U/L (0-40); Blood Urea Nitrogen 16 mg/dL (8-23); Calcium 8.7 mg/dL (8.5-10.5); Carbon Dioxide 26 mmol/L (22-29); Chloride 112 mmol/L (98-107); Creatinine Clr Calc Pharmacy 102.6056; Globulin 2.8 g/dL (1.3-4.6); Glomerular Filtration Rate 214.6 mL/min (90-130); Glucose 91 mg/dL (65-115); Magnesium 1.8 mg/dL (1.7-2.3); Osmolality Calculated 311 mOsm/kg (285-295); Phosphorus 3.2 mg/dL (2.5-4.5); Sodium 150 mmol/L (136-145); Total Bilirubin 0.3 mg/dL (0.15-1.2); Total Protein 5.9 g/dL (6.6-8.7)
[2024-09-24 04:09] LABS: Potassium 2.9 mmol/L (3.5-5.1)
--- NOTE | 2024-09-24 04:59 | PC.NURSE ---
Attempted to reach physician to report critical lab at [phone] with no answer. Sent message through voalte and informed physician that this nurse had critical lab values to report if she would like me to attempt to call her back or her call the floor. Physician read message with no response.
[2024-09-24] MEDS: ondansetron 2 mg/ML SDV 2 mL 4 MG IVP (05:31)
[2024-09-24] MEDS: pantoprazole 40 mg SDV IVP ×2 (05:32→17:49)
[2024-09-24 06:33] LABS: Glucose Point of Care 311 mg/dL (70-110)
[2024-09-24] MEDS: ipratropium-albuterol 3 mL Neb INHALATION ×4 (07:34→19:50)
[2024-09-24] MEDS: budesonide 0.5 mg/2 mL Neb INHALATION ×2 (07:34→19:50)
[2024-09-24] MEDS: sodium chloride 0.9% 1,000 ML 50 ML IV (08:29)
[2024-09-24] MEDS: lidocaine 1% 5 ML in potassium chloride premix 100 ML 26.25 ML IV (08:30)
[2024-09-24] MEDS: atorvastatin 40 mg Tablet PEG-TUBE (08:31)
[2024-09-24] MEDS: polyethylene glycol 3350 Pkt 17 gm PEG-TUBE (08:31)
[2024-09-24] MEDS: aspirin 81 mg Chew Tablet PEG-TUBE (08:31)
[2024-09-24] MEDS: sertraline 50 mg Tablet PEG-TUBE (08:31)
[2024-09-24] MEDS: insulin lispro 100 unit/1 mL SUBCUT ×2 (08:32→21:24)
[2024-09-24] MEDS: gabapentin 300 mg Capsule PO ×3 (08:32→21:24)
[2024-09-24] MEDS: bisacodyl 5 mg Tablet 10 MG PEG-TUBE (08:32)
--- NOTE | 2024-09-24 10:00 | PC.NURSE ---
Titrated tube feeding, per order, to 25ml/hr.
[2024-09-24 11:40] LABS: Glucose Point of Care 116 mg/dL (70-110)
[2024-09-24] MEDS: chlorhexidine gluconate 0.12% Btl 473 mL 15 ML TOPICAL ×2 (12:25→17:49)
--- NOTE | 2024-09-24 13:53 | PM.PN ---
Subjective Subjective: Patient was seen this morning, he gives me the thumbs up that he is feeling better, gives me the thumbs up that his abdomen is not bothering him this morning, Vitals/I&O/Wt Last Vital Signs Temp 97.7 F 09/24/24 12:00 Pulse 79 09/24/24 12:00 Resp 19 H 09/24/24 12:00 BP 121/52 09/24/24 12:00 Pulse Ox 94 09/24/24 12:00 O2 Del Method Trach Collar 09/24/24 12:00 O2 Flow Rate 8 09/22/24 20:17 FiO2 21 09/23/24 20:00 09/23/24 09/24/24 09/24/24 22:59 06:59 14:59 Intake Total 355 / 615 250 / 865 355 / 355 Output Total 600 / 1100 550 / 550 Balance -245 / -485 250 / -235 -195 / -195 Weight last 48 hrs Weight 84.935 kg Weight 86 kg Physical Exam Const: COMMON NORMALS: no acute distress HENMT: OTHER: Area of erythema, around the neck, stable compared to yesterday, Tracheostomy in place Resp: COMMON NORMALS: normal respiratory effort, No retractions, No use of accessory muscles and clear to auscultation bilaterally AUSCULTATION: clear to auscultation bilaterally Cardio: COMMON NORMALS: regular rate, regular rhythm, S1 normal heart sound present and S2 normal heart sound present RATE: regular rate RHYTHM: regular rhythm HEART SOUNDS: S1 normal heart sound present and S2 normal heart sound present GI: COMMON NORMALS: Normal to inspection, nondistended, normoactive bowel sounds present and non-tender OTHER: PEG tube in place Extremity: COMMON NORMALS: no pedal edema Psych: COMMON NORMALS: mental status grossly normal Data 09/24/24 02:48 09/24/24 02:48 Micro: Microbiology 09/20/24 18:45 Gram Stain - Final Sputum - Endotracheal Tube Aspirate Sputum Culture - Final Citrobacter farmeri Pseudomonas aeruginosa A&P Assessment and plan (1) Multifocal pneumonia: (2) Type 2 diabetes mellitus: (3) CAD (coronary artery disease): (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 Airspace disease in the left lung. Subtle ground-glass opacities also in the right lung as above. Findings are concerning for multifocal pneumonia possibly of aspiration etiology given that there is fluid up to the midthoracic esophagus. There are some filling defects to the bronchi associated to the left lower lobe. 2. Scattered small multi station mediastinal lymph nodes are not pathologically enlarged and may be reactive. -With tracheostomy in place -Immunocompromise state s/p radiation, chemotherapy ? 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 Since the most recent available prior CT 03/01/2024, there has been resection of the anterior midline mandible with numerous surgical clips in the adjacent submental soft tissues on the right and left. I suspect there is a soft tissue reconstruction flap present in the anterior submental region now. Correlate with clinical/surgical history. Tracheostomy now in place. 2. There is now irregularly-shaped mildly enhancing soft tissue in the midline and paramedian submental region at the site of previous presumed soft tissue neoplasm seen on previous CT just below the level of the anterior mandible and mandibular resection site as described above. It measures approximately 3.5 cm x 5 cm x 3 cm. This soft tissue is nonspecific but concerning for recurrent neoplasm versus part of the reconstruction flap which I feel is less likely. Follow-up PET-CT may be useful. 3. Along the left side of the lower face there appears to be abnormal swelling and enlargement of the left parotid gland new from prior CT. There is associated soft tissue swelling, stranding, and reticulation in the adjacent left facial tissues and subcutaneous tissues extending down to the level of the mandibular resection site. These changes are nonspecific and could be post therapeutic or possibly due to a superficial infectious process. Correlate clinically. 4. Since the prior CT, there are now extensive generalized soft tissue changes throughout the neck compatible with presumed post therapeutic/post radiation/postsurgical changes. ? Status post mandibulectomy, anterior midline mandible -Status post implant of hardware ? Status post hardware removal of right mandible due to infection, from what describes possible necrotizing fasciitis? Require prolonged IV antibiotics hospitalization ? Status post skin flap creation right mandible ? Status post chemo and radiation therapy ? Followed by ENT, oncology, radiation oncology, [facility] ? Concern for cellulitis, p as erythema, swelling, tenderness throughout right neck, right jaw area, irregular borders measuring 10 x 10 cm with areas with healing superficial wounds, that have been packed elevated CRP -Continue IV antibiotics as above PEG tube feedings, advance tube feedings as tolerated, will consider bolus tube feedings based on clinical progress Type 2 diabetes mellitus, moderate dose sliding scale History of CAD -Continue aspirin, statin Dehydration, Full code scd for DVT prophylaxis Plan for today advance PEG tube feedings, continue IV antibiotics Attestations Medical Necessity Statement*: Patient requires hospitalization for cellulitis, soft tissue neck, pneumonia, Diagnoses Multifocal pneumonia J18.9 Type 2 diabetes mellitus E11.9 CAD (coronary artery disease) I25.10 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
[2024-09-24 14:58] LABS: Anion Gap 14.2 (5-19); Blood Urea Nitrogen 13 mg/dL (8-23); Calcium 8.2 mg/dL (8.5-10.5); Carbon Dioxide 25 mmol/L (22-29); Chloride 113 mmol/L (98-107); Creatinine Clr Calc Pharmacy 102.0657; Glomerular Filtration Rate 214.6 mL/min (90-130); Glucose 89 mg/dL (65-115); Osmolality Calculated 308 mOsm/kg (285-295); Potassium 3.2 mmol/L (3.5-5.1); Sodium 149 mmol/L (136-145)
--- NOTE | 2024-09-24 15:26 | PC.NURSE ---
Report given to ANAMIKA Navarro at 1430. She assumes care of pt at that time.
[2024-09-24 16:13] LABS: Glucose Point of Care 111 mg/dL (70-110)
--- NOTE | 2024-09-24 18:09 | PC.NURSE ---
pt tube feed increased by 15 mL/hr from 25mL/hr to 40mL/hr
[2024-09-24 20:50] LABS: Glucose Point of Care 168 mg/dL (70-110)
[2024-09-25] VITALS (7 sets, daily range): BP systolic 103–147; BP diastolic 57–69; PULSE 82–90; RESP 18–20; TEMP 36.6–36.8; O2SAT 92–98
[2024-09-25] MEDS: sucralfate 1 gm/10 mL Oral Liq UDC PEG-TUBE ×3 (00:51→12:58)
[2024-09-25] MEDS: meropenem 1,000 mg SDV 1000 MG IVP (01:15)
[2024-09-25 01:47] LABS: Basophils % 0.4 %; Eosinophils # 0.1 10^3/uL (0.0-0.8); Eosinophils % 2.5 %; Hematocrit 31.8 % (37-53); Lymphocytes # 0.3 10^3/uL (0.8-4.8); Lymphocytes % 6.9 %; Mean Corpuscular HGB Conc 30.8 g/dL (30-55); Mean Corpuscular Hemoglobin 28.3 pg (27-33); Mean Corpuscular Volume 91.9 fl (82-101); Mean Platelet Volume 8.8 fL (7.4-10.4); Monocytes # 0.7 10^3/uL (0.2-0.9); Monocytes % 13.8 %; Neutrophils # 3.63 10^3/uL (1.8-7.7); Neutrophils % 75.8 %; Nucleated Red Blood Cells % 0 %; Platelet Count 237 10^3/cmm (157-399); Red Blood Count 3.46 10^6/uL (3.85-5.65); Red Cell Distribution Width 17.9 % (12.1-15.1); White Blood Count 4.79 10^3/uL (3.29-11.43)
[2024-09-25 02:03] LABS: Alanine Aminotransferase 9 U/L (0-41); Albumin Level 2.9 g/dL (3.5-5.2); Alkaline Phosphatase 76 U/L (40-130); Anion Gap 17.4 (5-19); Aspartate Amino Transferase 9 U/L (0-40); Blood Urea Nitrogen 13 mg/dL (8-23); Carbon Dioxide 23 mmol/L (22-29); Chloride 112 mmol/L (98-107); Creatinine Clr Calc Pharmacy 102.0657; Globulin 2.1 g/dL (1.3-4.6); Glomerular Filtration Rate 214.6 mL/min (90-130); Glucose 166 mg/dL (65-115); Magnesium 1.8 mg/dL (1.7-2.3); Osmolality Calculated 312 mOsm/kg (285-295); Phosphorus 2.8 mg/dL (2.5-4.5); Potassium 3.4 mmol/L (3.5-5.1); Sodium 149 mmol/L (136-145); Total Bilirubin 0.3 mg/dL (0.15-1.2)
[2024-09-25 02:04] LABS: Vancomycin Trough 19.5 ug/mL (10-15)
[2024-09-25] MEDS: VANCOMYCIN ADD-Vantage 1,000 MG in 0.9% NaCl ADD-Vantage 250 ML 250 MG IV (03:46)
[2024-09-25] MEDS: sodium chloride 0.9% 1,000 ML 50 ML IV (03:50)
[2024-09-25] MEDS: pantoprazole 40 mg SDV IVP (05:52)
[2024-09-25 06:23] LABS: Glucose Point of Care 199 mg/dL (70-110)
[2024-09-25] MEDS: ipratropium-albuterol 3 mL Neb INHALATION ×2 (08:09→11:26)
[2024-09-25] MEDS: budesonide 0.5 mg/2 mL Neb INHALATION (08:09)
[2024-09-25] MEDS: bisacodyl 5 mg Tablet 10 MG PEG-TUBE (08:40)
[2024-09-25] MEDS: atorvastatin 40 mg Tablet PEG-TUBE (08:40)
[2024-09-25] MEDS: sertraline 50 mg Tablet PEG-TUBE (08:40)
[2024-09-25] MEDS: gabapentin 300 mg Capsule PO (08:40)
[2024-09-25] MEDS: polyethylene glycol 3350 Pkt 17 gm PEG-TUBE (08:40)
[2024-09-25] MEDS: aspirin 81 mg Chew Tablet PEG-TUBE (08:40)
[2024-09-25] MEDS: insulin lispro 100 unit/1 mL SUBCUT ×2 (08:41→12:58)
[2024-09-25] MEDS: chlorhexidine gluconate 0.12% Btl 473 mL 15 ML TOPICAL (08:41)
[2024-09-25] MEDS: lidocaine 1% 5 ML in potassium chloride premix 100 ML 52.5 ML IV (09:30)
[2024-09-25 11:38] LABS: Glucose Point of Care 169 mg/dL (70-110)
--- NOTE | 2024-09-25 11:59 | PM.DCS ---
Discharge Providers Date of Admission: 09/20/24 21:42 Date of Discharge: September 25, 2024 Attending Provider at Admission: David Pierre MD Attending Provider at Discharge: David Pierre MD Primary Care Provider: KULWANT Velazquez Diagnoses at Discharge Discharge Diagnosis (1) Multifocal pneumonia: Status: Acute (2) Type 2 diabetes mellitus: Status: Acute (3) CAD (coronary artery disease): Status: Acute (4) Squamous cell carcinoma of mandible: Status: Acute (5) PEG (percutaneous endoscopic gastrostomy) status: Status: Acute (6) Tracheostomy dependent: Status: Acute (7) Sepsis: Status: Acute (8) Acute hypoxic respiratory failure: Status: Acute (9) Acute anemia: Status: Acute (10) GI bleed: Status: Acute (11) Cellulitis: Status: Acute Reason for Visit Reason for Visit: N/V Hospital Course Hospital Course Santo Smith is a 69 year old male with a past medical history type 2 diabetes mellitus, hypertension, CAD, history of BKA, who presents [facility] due to nausea, vomiting, shortness of breath. Patient has a tracheostomy in place, no voicebox device, at bedside helps with history taking. 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 He then subsequently underwent radiation of that area, and chemotherapy, he completed his last round of radiation chemotherapy just a few days ago. [facility] his response to treatment, has not had any recent PET scans. When he was up at [facility] he also had a myocardial infarction, which was medically managed, he had heavily calcified vessel according to his that they were not able to get past with a medically managed him with aspirin, statin. [facility] started to develop some swelling erythema along the radiation field, he was seen by the skin team, seen by ENT, radiation oncologist according to , they said that it was probably related to radiation and they did not think it was an infection. -Erythema around the right neck, right jaw area, concerns for cellulitis, I would further investigate with a CT of the neck, he was given IV antibiotics in the emergency room, if the CT neck shows evidence of infection, I would recommend discussing with [facility] for consideration of transfer to the, the need for multidisciplinary team, given his complicated surgeries, mandibulectomy, speaking to his ENT physician that performed his surgeries, -If there is no radiographic evidence of infection we can certainly watch him here at [facility] -Will admit to ICU based upon CT imaging as above -Spoke to patient's about my concerns as above, she is agreeable to go to [facility] or stay here at [facility] based upon imaging findings and further discussion -Throughout my conversation with patient's , patient nods, voices understanding Patient was admitted to [facility] for acute hypoxic respiratory failure secondary to multifocal pneumonia, sputum cultures growing Citrobacter Pseudomonas, managed on IV antibiotic therapy, overall clinically improved, will be discharged from oral antibiotics with close follow-up with primary care provider as outpatient Sepsis secondary to pneumonia, cellulitis resolved History of 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 Since the most recent available prior CT 03/01/2024, there has been resection of the anterior midline mandible with numerous surgical clips in the adjacent submental soft tissues on the right and left. I suspect there is a soft tissue reconstruction flap present in the anterior submental region now. Correlate with clinical/surgical history. Tracheostomy now in place. 2. There is now irregularly-shaped mildly enhancing soft tissue in the midline and paramedian submental region at the site of previous presumed soft tissue neoplasm seen on previous CT just below the level of the anterior mandible and mandibular resection site as described above. It measures approximately 3.5 cm x 5 cm x 3 cm. This soft tissue is nonspecific but concerning for recurrent neoplasm versus part of the reconstruction flap which I feel is less likely. Follow-up PET-CT may be useful. 3. Along the left side of the lower face there appears to be abnormal swelling and enlargement of the left parotid gland new from prior CT. There is associated soft tissue swelling, stranding, and reticulation in the adjacent left facial tissues and subcutaneous tissues extending down to the level of the mandibular resection site. These changes are nonspecific and could be post therapeutic or possibly due to a superficial infectious process. Correlate clinically. 4. Since the prior CT, there are now extensive generalized soft tissue changes throughout the neck compatible with presumed post therapeutic/post radiation/postsurgical changes. ? Status post mandibulectomy, anterior midline mandible -Status post implant of hardware ? Status post hardware removal of right mandible due to infection, from what describes possible necrotizing fasciitis? Require prolonged IV antibiotics hospitalization ? Status post skin flap creation right mandible ? Status post chemo and radiation therapy ? Followed by ENT, oncology, radiation oncology, [facility] ? Concern for cellulitis, p as erythema, swelling, tenderness throughout right neck, right jaw area, irregular borders measuring 10 x 10 cm with areas with healing superficial wounds, that have been packed elevated CRP -Received IV antibiotics, overall clinically improved area of cellulitis improved, discharged on p.o. antibiotics -Residual erythema/redness, likely related to radiation treatment -Follow-up with [facility] Patient's hospitalization was complicated with acute anemia, GI bleed, with bloody stool, medically managed hemoglobin remained stable, hemodynamics stable, no acute bloody black stools, discharged on Protonix, Carafate, follow-up with general surgery -Patient's family was advised if he has any bloody or black stools please go to emergency room Cardiac echo shows CONCLUSIONS Technically limited quality echocardiogram because of poor ultrasonic windows. LV systolic function is mildly reduced with EF of 40 to 45%. Above-mentioned regional wall motion abnormalities. Mild mitral regurgitation. Mild tricuspid regurgitation. No comparison studies are available -I had a detailed discussion with about his echocardiogram results, she tells me that when he at [facility] they told her that his heart function was reduced and there was part of the heart that was not moving well, they had attempted an angiogram but the vessel was too calcified, so he never had a stent placed -no chest pain complaints -Continue aspirin, statin, beta-fauzia on discharge, follow-up cardiology as outpatient For type 2 diabetes, discharged on Lantus 10 units subcut daily, low-dose insulin sliding scale For his PEG tube, at times patient did not tolerate PEG tube feedings, main complaints was abdominal bloating, KUB no acute findings, was managed with Reglan/Protonix which seemed to help, discharged with PEG tube instructions as below, Protonix, Carafate, Reglan as needed On discharge, I have gone over his discharge instructions his hospitalization with his in detail - PEG tube feedings, Glucerna 1.5 360 mL (1.5 cartons) bolus every 6 hours ? With 150 mL of free water flushes every 4 hours -Please use Reglan as needed for abdominal bloating, nausea, vomiting -Please use bowel regimen MiraLAX -Please follow-up with [facility] -For your GI bleed, continue Protonix, Carafate if you develop bloody black stools go to emergency room -For your pneumonia please take antibiotics as prescribed -For your type 2 diabetes -Please monitor your blood sugars closely -Monitor your blood sugars 3 times daily as after meals -Please record your blood sugars, and a blood sugar log -For your NovoLog -Please inject blood sugar after meals based on sliding scale provided -Do not inject insulin if you do not eat as hypoglycemia kills -This is a NovoLog sliding scale -Insulin sliding ?fingerstick? Insulin ?141-180?0 units/sq 181-220?2 units/sq ?221-260?4 units/sq ?261-300 6 units/sq ?301-350?8 units/sq ?351-400 10 units/sq ?401-450?12 units/sq >450? 14units/sq -If your blood sugar is greater than 500 go to the emergency room -If your blood sugar is less than 60 or at anytime you feel lightheaded or dizzy or diaphoretic or have chest palpitations check your blood sugar, and eat a hard candy or drink orange juice and go immediately to the emergency room -Remember hypoglycemia kills, so if his blood sugar is less than 60 we have to increase it by taking in a sugary meal such as a hard candy or orange juice and go to the emergency room -If you have any questions please call us where here to help -If you have chest pain please go to emergency room, follow-up with cardiology Physical Exam Const: COMMON NORMALS: no acute distress ORIENTATION/CONSCIOUSNESS: Yes awake and Yes oriented to person; not oriented to place and not oriented to time Neck/C-Spine: OTHER: Neck erythema, improved, but to some degree persist Tracheostomy in place ? PEG tube in place Resp: COMMON NORMALS: normal respiratory effort, No retractions, No use of accessory muscles and clear to auscultation bilaterally AUSCULTATION: clear to auscultation bilaterally Cardio: COMMON NORMALS: regular rate, regular rhythm, S1 normal heart sound present and S2 normal heart sound present RATE: regular rate RHYTHM: regular rhythm HEART SOUNDS: S1 normal heart sound present and S2 normal heart sound present GI: COMMON NORMALS: Normal to inspection, nondistended, normoactive bowel sounds present and non-tender Extremity: COMMON NORMALS: no pedal edema Neuro: SENSORIUM/ORIENTATION: Yes oriented to person, No oriented to place and No oriented to time Psych: COMMON NORMALS: mental status grossly normal Discharge Data Studies Completed and Pending Completed Studies During Hospitalization Category Date Time Status CT chest abdpel w/*[id number] Urgent Cat Scan 09/20/24 15:[address] neck w con* [id number] Stat Cat Scan 09/20/24 18:05 Completed XR KUB portable [id number] Routine Exams 09/23/24 09:33 Completed CV. echo complete* [id number] Routine Ultrasound 09/21/24 08:14 Completed Pending at discharge Category Date Time Status BMP [Basic Metabolic Panel] Stat Lab 09/25/24 13:00 Ordered Blood Culture Stat Lab 09/20/24 16:32 Results Complete Blood Count w/Auto AM LABS Lab 09/26/24 04:00 Ordered Comprehensive Metabolic Panel AM LABS Lab 09/26/24 04:00 Ordered Magnesium AM LABS Lab 09/26/24 04:00 Ordered Phosphorus AM LABS Lab 09/26/24 04:00 Ordered Radiology Impressions Chest/Abdomen/Pelvis CT 09/20/24 15:11 IMPRESSION: 1. Airspace disease in the left lung. Subtle ground-glass opacities also in the right lung as above. Findings are concerning for multifocal pneumonia possibly of aspiration etiology given that there is fluid up to the midthoracic esophagus. There are some filling defects to the bronchi associated to the left lower lobe. 2. Scattered small multi station mediastinal lymph nodes are not pathologically enlarged and may be reactive. IMPRESSION: 1. No definite acute intra-abdominal or intrapelvic process. 2. Redemonstration of soft tissue lesion situated between the pancreatic tail and spleen. The attenuation of this lesion follows spleen and may be related to a prominent splenule or accessory splenic tissue. Further confirmation can be made with a nonemergent abdominal MRI with and without contrast. 3. Interval slightly improved appearance of bilateral inguinal lymph nodes. 4. There is some layering calcium in the posterolateral urinary bladder. 5. Additional incidental/chronic findings as above. COMMENTS: Consistent with the [employer]'s Incidental Findings Committee white paper (J Am Micheal Radiol 2018): Any incidental renal lesion less than 1 cm or classified as too small to characterize, or any incidental cystic renal lesion characterized as simple-appearing, is likely benign. No follow-up imaging is recommended for these lesions per consensus recommendations based on imaging criteria. Neck CT 09/20/24 18:05 IMPRESSION: 1. Since the most recent available prior CT 03/01/2024, there has been resection of the anterior midline mandible with numerous surgical clips in the adjacent submental soft tissues on the right and left. I suspect there is a soft tissue reconstruction flap present in the anterior submental region now. Correlate with clinical/surgical history. Tracheostomy now in place. 2. There is now irregularly-shaped mildly enhancing soft tissue in the midline and paramedian submental region at the site of previous presumed soft tissue neoplasm seen on previous CT just below the level of the anterior mandible and mandibular resection site as described above. It measures approximately 3.5 cm x 5 cm x 3 cm. This soft tissue is nonspecific but concerning for recurrent neoplasm versus part of the reconstruction flap which I feel is less likely. Follow-up PET-CT may be useful. 3. Along the left side of the lower face there appears to be abnormal swelling and enlargement of the left parotid gland new from prior CT. There is associated soft tissue swelling, stranding, and reticulation in the adjacent left facial tissues and subcutaneous tissues extending down to the level of the mandibular resection site. These changes are nonspecific and could be post therapeutic or possibly due to a superficial infectious process. Correlate clinically. 4. Since the prior CT, there are now extensive generalized soft tissue changes throughout the neck compatible with presumed post therapeutic/post radiation/postsurgical changes. KUB X-Ray 09/23/24 09:33 IMPRESSION: 1. No bowel dilatation 2. No free intra-abdominal air. Laboratory Results WBC 4.79 10^3/uL (3.29-11.43) 09/25/24 01:26 RBC 3.46 10^6/uL (3.85-5.65) L 09/25/24 01:26 Hgb 9.80 g/dL (11.27-16.99) L 09/25/24 01:26 Hct 31.8 % (37-53) L 09/25/24 01:26 MCV 91.9 fl (82-101) 09/25/24 01:26 MCH 28.3 pg (27-33) 09/25/24 01:26 MCHC 30.8 g/dL (30-55) 09/25/24 01:26 RDW 17.9 % (12.1-15.1) H 09/25/24 01:26 Plt Count 237 10^3/cmm (157-399) 09/25/24 01:26 MPV 8.8 fL (7.4-10.4) 09/25/24 01:26 Neut % (Auto) 75.8 % 09/25/24 01:26 Lymph % (Auto) 6.9 % 09/25/24 01:26 Ramsey % (Auto) 13.8 % 09/25/24 01:26 Eos % (Auto) 2.5 % 09/25/24 01:26 Baso % (Auto) 0.4 % 09/25/24 01:26 Neut # (Auto) 3.63 10^3/uL (1.8-7.7) 09/25/24 01:26 Lymph # (Auto) 0.3 10^3/uL (0.8-4.8) L 09/25/24 01:26 Ramsey # (Auto) 0.7 10^3/uL (0.2-0.9) 09/25/24 01:26 Eos # (Auto) 0.1 10^3/uL (0.0-0.8) 09/25/24 01:26 Baso # (Auto) 0.0 10^3/uL (0.0-0.1) 09/25/24 01:26 Nucleated RBC % (auto) 0 % 09/25/24 01:26 Nucleated RBCs # 0.0 /100WBC 09/25/24 01:26 ESR 20 mm/hr (0-10) H 09/20/24 15:36 PT 14.40 SECONDS (12.1-14.9) 09/20/24 15:36 INR 1.08 (0.8-1.2) 09/20/24 15:36 APTT 29.6 SECONDS (23.9-36.7) 09/20/24 15:36 Specimen Type Arterial 09/20/24 15:32 Sample Site Radial, left 09/20/24 15:32 ABG pH 7.51 (7.35-7.45) H 09/20/24 15:32 ABG pCO2 38.1 mmHg (35-45) 09/20/24 15:32 ABG pO2 52.6 mmHg (80.0-100.0) L 09/20/24 15:32 ABG PO2/FiO2 Ratio 146 09/20/24 15:32 ABG HCO3 30.1 mmol/L (22-26) H 09/20/24 15:32 ABG O2 Saturation 89.1 09/20/24 15:32 ABG Base Excess 6.6 mmol/L (-2.0-2.0) H 09/20/24 15:32 [place] Test Pos 09/20/24 15:32 A-a O2 Gradient 20.0 mmHg (5-10) H 09/20/24 15:32 Hematocrit 34.7 % (42-52) L 09/20/24 15:32 Hgb O2 Saturation 87.4 % (95-100) L 09/20/24 15:32 Carboxyhemoglobin 1.0 %THgb (0.4-20.1) 09/20/24 15:32 Methemoglobin 0.8 % (0.4-1.5) 09/20/24 15:32 Total Hemoglobin 11.3 g/dL (14-18) L 09/20/24 15:32 Sodium 141.0 mmol/L (131-143) 09/20/24 15:32 Potassium 3.7 mmol/L (3.5-5.0) 09/20/24 15:32 Glucose 246.0 mg/dL (70-115) H 09/20/24 15:32 Ionized Calcium 1.2 mmol/L (1.1-1.4) 09/20/24 15:32 O2 Delivery Device Nc 09/20/24 15:32 O2 Liters/Min 4.0 % 09/20/24 15:32 FiO2 36.0 % 09/20/24 15:32 Sap Bpc Architect ID Cak 09/20/24 15:32 Sodium 149 mmol/L (136-145) H 09/25/24 01:26 Potassium 3.4 mmol/L (3.5-5.1) L 09/25/24 01:26 Chloride 112 mmol/L (98-107) H 09/25/24 01:26 Carbon Dioxide 23 mmol/L (22-29) 09/25/24 01:26 Anion Gap 17.4 (5-19) 09/25/24 01:26 BUN 13 mg/dL (8-23) 09/25/24 01:26 Creatinine 0.4 mg/dL (0.7-1.2) L 09/25/24 01:26 GFR Calculation 214.6 mL/min (90-130) H 09/25/24 01:26 Glucose 166 mg/dL (65-115) H 09/25/24 01:26 POC Glucose 169 mg/dL (70-110) H 09/25/24 11:33 Estimat Average Glucose 137 09/20/24 15:36 Hemoglobin A1c 6.4 % (4.0-6.0) H 09/20/24 15:36 Calculated Osmolality 312 mOsm/kg (285-295) H 09/25/24 01:26 Lactic Acid 3.4 mmol/L (0.5-2.2) H 09/20/24 20:20 Lactic Acid (Sepsis) 2.5 mmol/L (0.5-2.2) H 09/20/24 23:21 Calcium 8.0 mg/dL (8.5-10.5) L 09/25/24 01:26 Phosphorus 2.8 mg/dL (2.5-4.5) 09/25/24 01:26 Magnesium 1.8 mg/dL (1.7-2.3) 09/25/24 01:26 Total Bilirubin 0.3 mg/dL (0.15-1.2) 09/25/24 01:26 AST 9 U/L (0-40) 09/25/24 01:26 ALT 9 U/L (0-41) 09/25/24 01:26 Alkaline Phosphatase 76 U/L (40-130) 09/25/24 01:26 Troponin T Baseline 31 ng/L (0-15) H 09/20/24 15:36 Troponin T Hi Sens 6Hr 54.40 ng/L (0-15) H 09/21/24 00:40 Troponin T Hi Sens 6Hr Delta 23.40 ng/L (0-12) H* 09/21/24 00:40 C-Reactive Protein 43.9 mg/L (0.0-4.9) H 09/23/24 05:21 NT-Pro-B Natriuret Pep 1217 pg/mL (0-125) H 09/20/24 15:36 Total Protein 5.0 g/dL (6.6-8.7) L 09/25/24 01:26 Albumin 2.9 g/dL (3.5-5.2) L 09/25/24 01:26 Globulin 2.1 g/dL (1.3-4.6) 09/25/24 01:26 Triglycerides 97 mg/dL (0-150) 09/20/24 15:36 Cholesterol 114 mg/dL (0-200) 09/20/24 15:36 LDL Cholesterol, Calc 61 mg/dL (50-129) 09/20/24 15:36 HDL Cholesterol 34 mg/dL (60-100) L 09/20/24 15:36 LDL/HDL Ratio 1.79 RATIO (0.00-3.22) 09/20/24 15:36 Cholesterol/HDL Ratio 3.35 mg/dL (1.0-5.00) 09/20/24 15:36 Lipase 12 U/L (13-60) L 09/20/24 15:36 Procalcitonin 0.08 ng/mL (0-0.5) 09/23/24 05:21 TSH 1.60 uIU/mL (0.27-4.20) 09/20/24 15:36 Urine Color Yellow (Yellow) 09/20/24 16:15 Urine Appearance Clear (CLEAR) 09/20/24 16:15 Urine pH 8.5 (5-7) A 09/20/24 16:15 Ur Specific [place] 1.036 (1.005-1.030) H 09/20/24 16:15 Urine Protein Negative (Negative) 09/20/24 16:15 Urine Glucose (UA) 3+ (Normal) H 09/20/24 16:15 Urine Ketones 1+ (Negative) H 09/20/24 16:15 Urine Blood Negative (Negative) 09/20/24 16:15 Urine Nitrate Negative (Negative) 09/20/24 16:15 Urine Bilirubin Negative (Negative) 09/20/24 16:15 Urine Urobilinogen 0.2 mg/dL (Negative) 09/20/24 16:15 Ur Leukocyte Esterase Negative (Negative) 09/20/24 16:15 Urine RBC 0-2 /hpf (0-2) 09/20/24 16:15 Urine WBC 0-5 /hpf (0-5) 09/20/24 16:15 Ur Squamous Epith Cells 0-5 /hpf (0-5) 09/20/24 16:15 Amorphous Sediment Not Reportable 09/20/24 16:15 Urine Bacteria None seen /hpf (NONE) 09/20/24 16:15 Hyaline Casts 0-4 /lpf H 09/20/24 16:15 Vancomycin Trough 19.5 ug/mL (10-15) H 09/25/24 01:26 Adenovirus (PCR) Not detected (NOT DETECT) 09/20/24 23:37 C. pneumoniae DNA (PCR) Not detected (NOT DETECT) 09/20/24 23:37 Coronavirus 229E (PCR) Not detected (NOT DETECT) 09/20/24 23:37 Human Metapneumovir PCR Not detected (NOT DETECT) 09/20/24 23:37 Influenza A (H1) PCR Not detected (NOT DETECT) 09/20/24 23:37 Influ A (H1/09) PCR Not detected (NOT DETECT) 09/20/24 23:37 Influenza A (H3) PCR Not detected (NOT DETECT) 09/20/24 23:37 Influenza Type A (PCR) Not detected (NOT DETECT) 09/20/24 23:37 Influenza Type B (PCR) Not detected (NOT DETECT) 09/20/24 23:37 M. pneumoniae (PCR) Not detected (NOT DETECT) 09/20/24 23:37 Parainfluenza 1 (PCR) Not detected (NOT DETECT) 09/20/24 23:37 Parainfluenza 2 (PCR) Not detected (NOT DETECT) 09/20/24 23:37 Parainfluenza 3 (PCR) Not detected (NOT DETECT) 09/20/24 23:37 Parainfluenza 4 (PCR) Not detected (NOT DETECT) 09/20/24 23:37 RSV Type A (PCR) Not detected (NOT DETECT) 09/20/24 23:37 RSV Type B (PCR) Not detected (NOT DETECT) 09/20/24 23:37 Entero/Rhino (PCR) Not detected (NOT DETECT) 09/20/24 23:37 SARS-CoV-2 (PCR) Not detected (NOT DETECT) 09/20/24 23:37 Vitals Last Vital Signs Temp 98.3 F 09/25/24 11:47 Pulse 82 09/25/24 11:47 Resp 19 H 09/25/24 11:47 BP 147/69 09/25/24 11:47 Pulse Ox 98 09/25/24 11:47 O2 Del Method Trach Collar 09/25/24 11:47 O2 Flow Rate 8 09/22/24 20:17 FiO2 21 09/25/24 08:09 Discharge Plan Discharge Patient Disposition: Home Condition: Stable Prescriptions: New polyethylene glycol 3350 17 gram Powder In Packet 17 g peg-tube DAILY PRN (Reason: constipation) 30 Days Qty: 30 0RF levofloxacin 750 mg Tablet 750 mg PO DAILY@0600 5 Days Qty: 5 0RF amoxicillin-pot clavulanate 875-125 mg Tablet 1 tab PO BID 5 Days Qty: 10 0RF insulin aspart U-100 [Novolog FlexPen U-100 Insulin] 100 unit/mL (3 mL) insulin pen See Rx Instructions .ROUTE .COMPLEX Qty: 15 0RF Rx Instructions: Inject, subcut, 3 times daily, after meals, based on sliding scale provided metoclopramide HCl [Reglan] 5 mg tablet 5 mg PO TIDWMEAL PRN (Reason: nausea and vomiting) 5 Days Qty: 10 0RF Rx Instructions: monitor for tardive dyskinesia (muscle spasms), if so stopped taking medication, come to emergency room pantoprazole [Protonix] 40 mg tablet,delayed release (DR/EC) 40 mg PO BID 30 Days Qty: 60 0RF sucralfate [Carafate] 1 gram tablet 1 g PO BID 28 Days Qty: 56 0RF Continued aspirin 81 mg Tablet,Delayed Release (Dr/Ec) 81 mg PO DAILY atorvastatin 80 mg tablet 80 mg PO DAILY metformin 1,000 mg tablet 1,000 mg PO BID gabapentin 300 mg capsule 300 mg PO TID ondansetron 4 mg tablet,disintegrating 4 mg PO PRN PRN (Reason: Nausea And Vomiting) sertraline 50 mg tablet 50 mg PO DAILY metoprolol tartrate 25 mg tablet 25 mg PO DAILY chlorhexidine gluconate 0.12 % mouthwash 30 ml PO DAILY dapagliflozin propanediol [Farxiga] 10 mg tablet 10 mg PO DAILY Changed insulin glargine [Lantus U-100 Insulin] 100 unit/mL Solution 10 unit SUBCUT DAILY Qty: 10 6RF lorazepam 0.5 mg tablet 0.5 mg PO DAILY PRN (Reason: anxiety) Qty: 1 0RF Discontinued lisinopril 20 mg tablet 20 mg PO DAILY losartan 25 mg tablet 12.5 mg PO DAILY Rx Instructions: take 1/2 tablet by mouth daily No Action (DME) Knee scooter See Rx Instructions .Route .MEDSUPPLY Qty: 1 0RF Rx Instructions: As directed (DME) Right below the knee prostethis See Rx Instructions .Route .MEDSUPPLY Qty: 1 0RF Rx Instructions: As directed (DME) Dexcom G7 Garage Helper Misc See Rx Instructions .Route Qty: 1 0RF Rx Instructions: As directed (DME) Dexcom G7 Sensor Device See Rx Instructions .Route Qty: 3 1RF Rx Instructions: As directed Discharge Orders: Discharge Order (Routine); Ordered 09/25/24 Ordered By: David Pierre Referrals: Zbigniew Salas MD [Physician] - 1 week (We have notified your physician's clinic of the need for a follow-up appointment to be scheduled. If you have not heard from them within the next 2 business days, please call them directly. ) Shannon Calle FNP [Primary Care Provider] - Cezar Eduardo M.D [Physician] - 1 week (We have notified your physician's clinic of the need for a follow-up appointment to be scheduled. If you have not heard from them within the next 2 business days, please call them directly. ) Discharge Diet: Cardiac Discharge Activity: Resume usual activity Patient Instructions: Opioid Safety Activity Restrictions/Additional Instructions: - PEG tube feedings, Glucerna 1.5 360 mL (1.5 cartons) bolus every 6 hours ? With 150 mL of free water flushes every 4 hours -Please use Reglan as needed for abdominal bloating, nausea, vomiting -Please use bowel regimen MiraLAX -Please follow-up with [facility] -For your GI bleed, continue Protonix, Carafate if you develop bloody black stools go to emergency room -For your pneumonia please take antibiotics as prescribed -For your type 2 diabetes -Please monitor your blood sugars closely -Monitor your blood sugars 3 times daily as after meals -Please record your blood sugars, and a blood sugar log -For your NovoLog -Please inject blood sugar after meals based on sliding scale provided -Do not inject insulin if you do not eat as hypoglycemia kills -This is a NovoLog sliding scale -Insulin sliding ?fingerstick? Insulin ?141-180?0 units/sq 181-220?2 units/sq ?221-260?4 units/sq ?261-300 6 units/sq ?301-350?8 units/sq ?351-400 10 units/sq ?401-450?12 units/sq >450? 14units/sq -If your blood sugar is greater than 500 go to the emergency room -If your blood sugar is less than 60 or at anytime you feel lightheaded or dizzy or diaphoretic or have chest palpitations check your blood sugar, and eat a hard candy or drink orange juice and go immediately to the emergency room -Remember hypoglycemia kills, so if his blood sugar is less than 60 we have to increase it by taking in a sugary meal such as a hard candy or orange juice and go to the emergency room -If you have any questions please call us where here to help -If you have chest pain please go to emergency room, follow-up with cardiology Discharge Attestations Time Spent in Discharge Care*: greater than 30 min Quality Metrics Clinical Quality Measures [ No reported AMI, CVA or VTE this stay] Coding Level of Care Code 07551 Total time (in minutes) for Discharge: 45 Diagnoses Multifocal pneumonia J18.9 Type 2 diabetes mellitus E11.9 CAD (coronary artery disease) I25.10 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
--- NOTE | 2024-09-25 12:56 | PC.NURSE ---
Discharge Note Patient discharged to home via ambulance ride accompanied by ambulance personnel. Discharge instructions reviewed with patient and/or retail wireless sales representative. Mobile pharmacy medications and/or prescriptions provided. Belongings/home medications returned.
[2024-09-25 13:50] LABS: Anion Gap 15.3 (5-19); Blood Urea Nitrogen 14 mg/dL (8-23); Calcium 8.1 mg/dL (8.5-10.5); Carbon Dioxide 24 mmol/L (22-29); Chloride 112 mmol/L (98-107); Creatinine Clr Calc Pharmacy 103.4674; Glomerular Filtration Rate 214.6 mL/min (90-130); Glucose 172 mg/dL (65-115); Osmolality Calculated 311 mOsm/kg (285-295); Potassium 3.3 mmol/L (3.5-5.1); Sodium 148 mmol/L (136-145)
== END 2024-09-25 14:52 | disposition home or self-care (01) | DRG 871 ==
LOC: ER 20:21 → ICU 21:43 → MEDSURG 09-23 13:15
PROVIDERS: Student in an Organized Health Care Education/Training Program; Admitting Provider Family Medicine; Emergency Provider Physician Assistant; PCP Nurse Practitioner Family; Visit Provider Family Medicine
DX: A41.9 Sepsis, unspecified organism (principal); J18.8 Other pneumonia, unspecified organism; J96.01 Acute respiratory failure with hypoxia; D62 Acute posthemorrhagic anemia; K92.1 Melena; L03.211 Cellulitis of face; D84.821 Immunodeficiency due to drugs; R65.20 Severe sepsis without septic shock; E11.9 Type 2 diabetes mellitus without complications; I25.10 Atherosclerotic heart disease of native coronary artery without angina pectoris; I10 Essential (primary) hypertension; E86.0 Dehydration; Z93.1 Gastrostomy status; Z93.0 Tracheostomy status; Z89.512 Acquired absence of left leg below knee; Z92.3 Personal history of irradiation; Z92.21 Personal history of antineoplastic chemotherapy; Z85.830 Personal history of malignant neoplasm of bone
CPT/HCPCS: 36415; 36416; 36600; 70491; 71260; 74018; 74177; 80048; 80051; 80053; 80061; 80202; 81001; 82330; 82805; 82962; 83036; 83605; 83690; 83735; 83880; 84100; 84145; 84443; 84484; 85014; 85018; 85025; 85610; 85651; 85730; 86140; 87040; 87070; 87077; 87186; 87205; 87486; 87581; 87633; 93005; 93306; 94640; 94664; 94799; 96365; 96366; 96367; 96372; 96375; 96376; 97161; 97165; 99285; J1650; J1815; J2185; J2405; J2470; J2543; J2765; J3370; J3480; J7030; J7050; J7626

== ENCOUNTER 2024-10-10 12:00 | Emergency (ER) | payer MEDICARE, SELFPAY ==
[2024-10-10] VITALS (11 sets, daily range): BP systolic 90–137; BP diastolic 40–74; PULSE 76–479; RESP 16–18; TEMP 36.7; O2SAT 96–99; BMI 21.7
--- NOTE | 2024-10-10 12:19 | XR_ITS ---
WS: [id number] Portable AP semiupright chest, 10/10/2024 Clinical Data: Possible Sepsis Comparison: Portable chest, 03/01/2024 Findings: No nodules, masses or effusions are seen. The heart is normal. The pulmonary vascularity is not increased. No pneumonia or pneumothorax is seen. There is a tracheal tube in both position. The aortic arch shows mild tortuosity. There are surgical clips in the left axilla. There is osteoarthrit is of the right glenohumeral joint. XR/XR chest 1V portable [id number] Impression: Atherosclerosis.
--- NOTE | 2024-10-10 12:26 | ED_ITS ---
HPI - Weakness 2 General: Chief complaint: Weakness Stated complaint: weakness Time Seen by Provider: 10/10/24 12:01 Source: patient and EMS Mode of arrival: EMS Limitations: no limitations History of Present Illness: 69-year-old male has extensive history h ad a history of squamous cell of the mandibles had his mandible removed he also has a trach has a below the knee amputations bedbound patient admitted here over Thanksgiving for pneumonia states that ever since he has been back home he has been extremely weak with increasing weakness patient here denies any fever denies any pain he has had no known vomiting or diarrhea. He is fed by tube feedings. Associated symptoms: Denies chest pain, chills, dysuria, fever(s), headache(s), nausea or vomiting Review of Systems 2 Const: Reports: fatigue and malaise; Denies: fever(s) or chills ENMT: Denies: throat pain or dental pain Card: Denies: chest pain Resp: Denies: dyspnea GI: Denies: abdominal pain, nausea, vomiting or diarrhea : Denies: dysuria Musc: Denies: neck pain or back pain Skin/Breast: Denies: rash Neuro: Denies: headache(s) PFSH ED 2 PFSH: Medical History Below knee amputation Type 2 diabetes mellitus Constipation Increased anion gap metabolic acidosis Hyperglycemia Necrotizing fasciitis Necrotizing soft tissue infection Gas gangrene Necrotizing fasciitis Cellulitis of foot, right Weakness Leukocytosis Hyponatremia Lymphadenopathy of head and neck region Skin lesion of face Lesion of mouth Necrotic wound of left hand Squamous cell carcinoma of oral cavity ? Hypertension Family History Father Cancer lung cancer Mother CAD (coronary artery disease) Social History Smoking and tobacco/nicotine status: unknown if used tobacco/nicotine Physical Exam 2 Const: COMMON NORMALS: no acute distress, patient oriented x3 and healthy appearing HENMT: COMMON NORMALS: normocephalic and atraumatic HEAD & SCALP: n ormocephalic and atraumatic Neck/C-Spine: COMMON NORMALS: full ROM and supple Chest: COMMONS NORMALS: normal inspection of the chest Resp: COMMON NORMALS: normal respiratory effort, No retractions, No use of accessory muscles and clear to auscultation bilaterally AUSCULTATION: clear to auscultation bilaterally Cardio: COMMON NORMALS: regular rate, regular rhythm and No murmurs present (Cardio) RATE: regular rate RHYTHM: regular rhythm GI: COMMON NORMALS: Normal to inspection, nondistended, normoactive bowel sounds present, Soft to palpation, non-tender and no masses PALPATION: Yes Soft to palpation Extremity: COMMON NORMALS: normal to inspection and full ROM Neuro: COMMON NORMALS: patient oriented x3, moves all extremities and no focal motor deficits Psych: COMMON NORMALS: mental status grossly normal, Normal thought process present and cooperative THOUGHT PROCESS: Normal thought process present Skin: COMMON NORMALS: no rashes or lesions noted and no wounds GENERAL SKIN EXAM: no rashes or lesions noted Course 2 Vital Signs: Vital signs: Vital Signs Temperature 98.1 F 10/10/24 12:09 Pulse Rate 81 10/10/24 17:03 Respiratory Rate 16 10/10/24 12:09 Blood Pressure 113/68 10/10/24 17:03 Pulse Oximetry 98 10/10/24 17:03 Oxygen Delivery Me thod Room Air 10/10/24 12:09 MDM - Weakness Medical Decision Making Patient presents with generalized weakness and dehydration no signs of infection his lactate and blood pressure improved here after fluids he is wanting go home he is been well-appearing here blood pressure stabilized he stable for discharge back home follow-up with PCP return if worsening. Medical Records I reviewed the patient's medical records. Lab Data I reviewed the patient's lab results. 10/10/24 13:11 10/10/24 13:11 Radiology Impressions Chest X-Ray 10/10/24 12:19 Impression: Atherosclerosis. Laboratory Results WBC 4.63 10^3/uL (3.29-11.43) 10/10/24 13:11 RBC 3.27 10^6/uL (3.85-5.65) L 10/10/24 13:11 Hgb 9.40 g/dL (11.27-16.99) L 10/10/24 13:11 Hct 29.7 % (37-53) L 10/10/24 13:11 MCV 90.8 fl (82-101) 10/10/24 13:11 MCH 28.7 pg (27-33) 10/10/24 13:11 MCHC 31.6 g/dL (30-55) 10/10/24 13:11 RDW 17.5 % (12.1-15.1) H 10/10/24 13:11 Plt Count 213 10^3/cmm (157-399) 10/10/24 13:11 MPV 10.0 fL (7.4-10.4) 10/10/24 13:11 Neut % (Auto) 70.2 % 10/10/24 13:11 Lymph % (Auto) 9.7 % 10/10/24 13:11 Davison % (Auto) 14.5 % 10/10/24 13:11 Eos % (Auto) 4.1 % 10/10/24 13:11 Baso % (Auto) 0.9 % 10/10/24 13:11 Neut # (Auto) 3.25 10^3/uL (1.8-7.7) 10/10/24 13:11 Lymph # (Auto) 0.5 10^3/uL (0.8-4.8) L 10/10/24 13:11 Davison # (Auto) 0.7 10^3/uL (0.2-0.9) 10/10/24 13:11 Eos # (Auto) 0.2 10^3/uL (0.0-0.8) 10/10/24 13:11 Baso # (Auto) 0.0 10^3/uL (0.0-0.1) 10/10/24 13:11 Nucleated RBC % (auto) 0 % 10/10/24 13:11 Nucleated RBCs # 0.0 /100WBC 10/10/24 13:11 PT 13.30 SECONDS (12.1-14.9) 10/10/24 13:11 INR 0.99 (0.8-1.2) 10/10/24 13:11 Sodium 140 mmol/L (136-145) 10/10/24 13:11 Potassium 4.7 mmol/L (3.5-5.1) 10/10/24 13:11 Chloride 96 mmol/L (98-107) L 10/10/24 13:11 Carbon Dioxide 29 mmol/L (22-29) 10/10/24 13:11 Anion Gap 19.7 (5-19) H 10/10/24 13:11 BUN 22 mg/dL (8-23) 10/10/24 13:11 Creatinine 0.4 mg/dL (0.7-1.2) L 10/10/24 13:11 GFR Calculation 214.6 mL/min (90-130) H 10/10/24 13:11 Glucose 141 mg/dL (65-115) H 10/10/24 13:11 Calculated Osmolality 296 mOsm/kg (285-295) H 10/10/24 13:11 Lactic Acid 3.7 mmol/L (0.5-2.2) H 10/10/24 13:11 Lactic Acid (Sepsis) 2.1 mmol/L (0.5-2.2) 10/10/24 16:01 Calcium 9.0 mg/dL (8.5-10.5) 10/10/24 13:11 Magnesium 1.9 mg/dL (1.7-2.3) 10/10/24 13:11 Total Bilirubin 0.2 mg/dL (0.15-1.2) 10/10/24 13:11 AST 13 U/L (0-40) 10/10/24 13:11 ALT 10 U/L (0-41) 10/10/24 13:11 Alkaline Phosphatase 91 U/L (40-130) 10/10/24 13:11 Total Protein 6.7 g/dL (6.6-8.7) 10/10/24 13:11 Albumin 3.5 g/dL (3.5-5.2) 10/10/24 13:11 Globulin 3.2 g/dL (1.3-4.6) 10/10/24 13:11 Urine Color Yellow (Yellow) 10/10/24 13:30 Urine Appearance Clear (CLEAR) 10/10/24 13:30 Urine pH 7.5 (5-7) 10/10/24 13:30 Ur Specific [place] 1.032 (1.005-1.030) H 10/10/24 13:30 Urine Protein Negative (Negative) 10/10/24 13:30 Urine Glucose (UA) 3+ (Normal) H 10/10/24 13:30 Urine Ketones Negative (Negative) 10/10/24 13:30 Urine Blood Negative (Negative) 10/10/24 13:30 Urine Nitrate Negative (Negative) 10/10/24 13:30 Urine Bilirubin Negative (Negative) 10/10/24 13:30 Urine Urobilinogen 1.0 mg/dL (Negative) 10/10/24 13:30 Ur Leukocyte Esterase Negative (Negative) 10/10/24 13:30 Urine RBC 0-2 /hpf (0-2) 10/10/24 13:30 Urine WBC 0-5 /hpf (0-5) 10/10/24 13:30 Ur Squamous Epith Cells 0-5 /hpf (0-5) 10/10/24 13:30 Amorphous Sediment Not Reportable 10/10/24 13:30 Urine Bacteria None seen /hpf (NONE) 10/10/24 13:30 Hyaline Casts 0.81 /lpf 10/10/24 13:30 All radiology interpretation(s) finalized by discharge EKG Data EKG 1: I personally reviewed and interpreted this EKG as follows: EKG interpretation date: 10/10/24 EKG interpretation time: 12:27 Interpretation: nsr hr [address] elevation qrs 95 qtc 433 Discharge Plan Discharge Patient Disposition: Home Clinical Impression: Generalized weakness Condition: Stable Prescriptions: No Action (DME) Knee scooter See Rx Instructions .Route .MEDSUPPLY Qty: 1 0RF Rx Instructions: As directed (DME) Right below the knee prostethis See Rx Instructions .Route .MEDSUPPLY Qty: 1 0RF Rx Instructions: As directed (DME) Dexcom G7 Manufacturing Engineering Technologist Misc See Rx Instructions .Route Qty: 1 0RF Rx Instructions: As directed (DME) Dexcom G7 Sensor Device See Rx Instructions .Route Qty: 3 1RF Rx Instructions: As directed insulin aspart U-100 [Novolog FlexPen U-100 Insulin] 100 unit/mL (3 mL) insulin pen See Rx Instructions .ROUTE .COMPLEX Rx Instructions: ;Inject, subcut, 3 times daily, after meals, based on sliding scale provided losartan 25 mg tablet 25 mg PO DAILY ondansetron 4 mg tablet,disintegrating 4 mg PO Q6H aspirin 81 mg Tablet,Delayed Release (Dr/Ec) 81 mg PO DAILY atorvastatin 80 mg tablet 80 mg PO DAILY metformin 1,000 mg tablet 1,000 mg PO BID gabapentin 300 mg capsule 300 mg PO TID sertraline 50 mg tablet 50 mg PO DAILY metoprolol tartrate 25 mg tablet 25 mg PO DAILY dapagliflozin propanediol [Farxiga] 10 mg tablet 10 mg PO DAILY polyethylene glycol 3350 17 gram Powder In Packet 17 g peg-tube DAILY PRN (Reason: constipation) 30 Days Qty: 30 0RF insulin glargine [Lantus U-100 Insulin] 100 unit/mL Solution 10 unit SUBCUT DAILY Qty: 10 6RF lorazepam 0.5 mg tablet 0.5 mg PO DAILY PRN (Reason: anxiety) Qty: 1 0RF pantoprazole [Protonix] 40 mg tablet,delayed release (DR/EC) 40 mg PO BID 30 Days Qty: 60 0RF sucralfate [Carafate] 1 gram tablet 1 g PO BID 28 Days Qty: 56 0RF Discharge Orders: Discharge ED (Routine); Ordered 10/10/24 Ordered By: Donnell Saab Referrals: Shannon Calle FNP [Primary Care Provider] - 4-7 days Discharge Diet: Advance as tolerated Discharge Activity: Resume usual activity Patient Instructions: Weakness (ED) Coding Level of Care Code ED Preschool Disability Teacher for Chg Fwd Related Data Home Medications Medication Instructions Recorded Confirmed aspirin 81 mg tablet,delayed 81 mg PO DAILY 03/24/24 10/10/24 release atorvastatin 80 mg tablet 80 mg PO DAILY 09/20/24 10/10/24 dapagliflozin propanediol 10 mg 10 mg PO DAILY 09/20/24 10/10/24 tablet (Farxiga) gabapentin 300 mg capsule 300 mg PO TID 09/20/24 10/10/24 metformin 1,000 mg tablet 1,000 mg PO BID 09/20/24 10/10/24 metoprolol tartrate 25 mg tablet 25 mg PO DAILY 09/20/24 10/10/24 sertraline 50 mg tablet 50 mg PO DAILY 09/20/24 10/10/24 insulin aspart U-100 100 unit/mL See Rx Instructions .Route .COMPLEX 10/10/24 10/10/24 (3 mL) subcutaneous pen (Novolog FlexPen U-100 Insulin aspart) losartan 25 mg tablet 25 mg PO DAILY 10/10/24 10/10/24 ondansetron 4 mg disintegrating 4 mg PO Q6H 10/10/24 10/10/24 tablet Previous Rx's Medication Instructions Recorded Knee scooter #1 ea 03/21/24 Right below the knee prostethis #1 ea 03/28/24 blood-glucose meter,continuous #1 ea 03/28/24 (Dexcom G7 Manufacturing Engineering Technologist) blood-glucose sensor (Dexcom G7 #3 ea 03/28/24 Sensor device) insulin glargine 100 unit/mL 10 unit (0.1 mL) SUBCUT DAILY #10 09/25/24 subcutaneous solution (Lantus mL U-100 Insulin) lorazepam 0.5 mg tablet 0.5 mg PO DAILY PRN anxiety #1 tab 09/25/24 pantoprazole 40 mg tablet,delayed 40 mg PO BID 30 days #60 tabs 09/25/24 release (Protonix) polyethylene glycol 3350 17 gram 17 g peg-tube DAILY PRN 09/25/24 oral powder packet constipation 30 days #30 ea sucralfate 1 gram tablet (Carafate) 1 g PO BID 4 weeks #56 tabs 09/25/24 Allergies Allergy/AdvReac Type Severity Reaction Status Date / Time No Known Allergies Allergy Verified 04/25/24 10:24
--- NOTE | 2024-10-10 12:27 | ECG_ITS ---
[facility] [place] [facility] Date: 2024-10-10 Pat Name: Santo Smith Department: Room: Gender: Male Collar Baster: : 1955 Requested By: Donnell Saab Order Number: [id number] Twan MD: Cezar Eduardo M.D. Measurements Intervals [place] Rate: 78 P: 55 GA: 181 QRS: 31 QRSD: 95 T: 90 QT: 399 QTc: 457 Interpretive Statements SINUS RHYTHM Compared to ECG 09/21/2024 00:22:39 ST (T wave) deviation no longer present Poor R-wave progression no longer present Electronically Signed On 10-10-2024 15:12:53 RADIOLOGY ASSISTANT by Cezar Eduardo M.D. [id number]
[2024-10-10] MEDS: sodium chloride 0.9% 2,177.25 ML 2177.25 ML IV (12:28)
[2024-10-10 13:33] LABS: Basophils % 0.9 %; Eosinophils # 0.2 10^3/uL (0.0-0.8); Eosinophils % 4.1 %; Hematocrit 29.7 % (37-53); Lymphocytes # 0.5 10^3/uL (0.8-4.8); Lymphocytes % 9.7 %; Mean Corpuscular HGB Conc 31.6 g/dL (30-55); Mean Corpuscular Hemoglobin 28.7 pg (27-33); Mean Corpuscular Volume 90.8 fl (82-101); Monocytes # 0.7 10^3/uL (0.2-0.9); Monocytes % 14.5 %; Neutrophils # 3.25 10^3/uL (1.8-7.7); Neutrophils % 70.2 %; Nucleated Red Blood Cells % 0 %; Platelet Count 213 10^3/cmm (157-399); Red Blood Count 3.27 10^6/uL (3.85-5.65); Red Cell Distribution Width 17.5 % (12.1-15.1); White Blood Count 4.63 10^3/uL (3.29-11.43)
[2024-10-10 13:40] LABS: Bilirubin Urine Negative (Negative); Blood Urine Negative (Negative); Glucose Urine UA 3+ (Normal); Ketones Urine Negative (Negative); Leukocyte Esterase Urine Negative (Negative); Nitrate Urine Negative (Negative); Protein Urine Negative (Negative); Urine Appearance Clear (CLEAR); Urine Color Yellow (Yellow); pH Urine 7.5 (5-7)
[2024-10-10 13:45] LABS: INR 0.99 (0.8-1.2)
[2024-10-10 13:45] LABS: Add Urine Microscopic? YES; Bacteria Urine None Seen /hpf; Hyaline Casts Urine 0.81 /lpf; RBC Urine 0-2 /hpf (0-2); Squamous Epithelial Cell Urine 0-5 /hpf (0-5); WBC Urine 0-5 /hpf (0-5)
[2024-10-10 13:48] LABS: Lactic Sepsis W/Reflex 3.7 mmol/L (0.5-2.2)
[2024-10-10 13:49] LABS: Alanine Aminotransferase 10 U/L (0-41); Albumin Level 3.5 g/dL (3.5-5.2); Alkaline Phosphatase 91 U/L (40-130); Anion Gap 19.7 (5-19); Aspartate Amino Transferase 13 U/L (0-40); Blood Urea Nitrogen 22 mg/dL (8-23); Carbon Dioxide 29 mmol/L (22-29); Chloride 96 mmol/L (98-107); Creatinine Clr Calc Pharmacy 95.7998; Globulin 3.2 g/dL (1.3-4.6); Glomerular Filtration Rate 214.6 mL/min (90-130); Glucose 141 mg/dL (65-115); Magnesium 1.9 mg/dL (1.7-2.3); Osmolality Calculated 296 mOsm/kg (285-295); Potassium 4.7 mmol/L (3.5-5.1); Sodium 140 mmol/L (136-145); Total Bilirubin 0.2 mg/dL (0.15-1.2); Total Protein 6.7 g/dL (6.6-8.7)
[2024-10-10 13:59] LABS: Specific Gravity, Urine 1.032 (1.005-1.030); UA Slide Review UA Slide Review Perf
[2024-10-10 14:02] LABS: Add Urine Culture? No
[2024-10-10 15:14] LABS: Reflex Lactate Order REFLEX LACTIC ORDERD
[2024-10-10 16:42] LABS: Lactic Acid level (Lactate) 2.1 mmol/L (0.5-2.2)
--- NOTE | 2024-10-10 23:19 | PC.NURSE ---
2245: Li catheter removed. 1000ml of clear, yellow urine emptied from li bag.
== END 2024-10-10 23:00 | disposition home or self-care (01) ==
PROVIDERS: Emergency Provider Emergency Medicine; PCP Nurse Practitioner Family
DX: R53.1 Weakness (principal); Z79.4 Long term (current) use of insulin; Z79.84 Long term (current) use of oral hypoglycemic drugs; E11.65 Type 2 diabetes mellitus with hyperglycemia; Z85.818 Personal history of malignant neoplasm of other sites of lip, oral cavity, and pharynx
CPT/HCPCS: 36415; 51702; 71045; 80053; 81001; 83605; 83735; 85025; 85610; 87040; 93005; 99285; J7030

== ENCOUNTER 2024-11-27 11:47 | Emergency (ER) | payer MEDICARE, SELFPAY ==
[2024-11-27 11:47] VITALS: BP 125/66; PULSE 101; RESP 16; TEMP 36.8; O2SAT 98; BMI 23.0
[2024-11-27 12:02] VITALS: BP 121/66; PULSE 98; RESP 16; O2SAT 96
--- NOTE | 2024-11-27 12:21 | XRR_ITS ---
PROCEDURE INFORMATION: Exam: XR Abdomen Exam date and time: 11/27/2024 12:30 PM Age: 69 years old Clinical indication: Device placement; Gi device; Peg tube placement 30 ml gastrografin used; Additional info: Confirmed chest tube placement flush with 30 ml gastrografin TECHNIQUE: Imaging protocol: Radiologic exam of the abdomen. Views: Frontal supine view of the abdomen. 1 View. COMPARISON: CR (ABDOMEN, ) 09/23/2024 10:29 AM FINDINGS: Tubes, catheters and devices: There is a PEG tube in place with contrast conforming to the expected appearance of the intraluminal stomach suggesting normal positioning. No evidence of contrast leak. Lungs: Lung bases are clear. Gastrointestinal tract: Nonobstructed bowel gas pattern with mild colonic stool. Bones/joints: Scattered spinal degenerative changes. XR/XR abdomen 1V* [id number] IMPRESSION: PEG tube with contrast injection into the stomach appears appropriate in position.
[2024-11-27 12:52] VITALS: BP 125/72; PULSE 97; RESP 16; O2SAT 100
--- NOTE | 2024-11-27 12:52 | PC.NURSE ---
Discharge instructions given to at bedside, advised pt and that ambulance has been called for transport home ete unknown
[2024-11-27 13:05] VITALS: BP 126/70; PULSE 99; RESP 16; O2SAT 99
--- NOTE | 2024-11-27 13:40 | W.ED.GENADLT ---
HPI - General Adult General: Chief complaint: General Medical Stated complaint: feeding tube pulled out Time Seen by Provider: 11/27/24 11:56 History of Present Illness: 69-year-old male presents to the emergency room with complaints of feeding tube that had been dislodged at home. He has a history of cancer of the throat and trachea. He also reported bit of a cough and cold symptoms recently. Patient arrived by ambulance no family members at the bedside when I seen the patient. Related Data Home Medications Medication Instructions Recorded Confirmed aspirin 81 mg tablet,delayed 81 mg PO DAILY 03/24/24 11/27/24 release atorvastatin 80 mg tablet 80 mg PO DAILY 09/20/24 11/27/24 dapagliflozin propanediol 10 mg 10 mg PO DAILY 09/20/24 11/27/24 tablet (Farxiga) gabapentin 300 mg capsule 300 mg PO TID 09/20/24 11/27/24 metformin 1,000 mg tablet 1,000 mg PO BID 09/20/24 11/27/24 metoprolol tartrate 25 mg tablet 25 mg PO DAILY 09/20/24 11/27/24 sertraline 50 mg tablet 50 mg PO DAILY 09/20/24 11/27/24 insulin aspart U-100 100 unit/mL See Rx Instructions .Route .COMPLEX 10/10/24 11/27/24 (3 mL) subcutaneous pen (Novolog FlexPen U-100 Insulin aspart) losartan 25 mg tablet 25 mg PO DAILY 10/10/24 11/27/24 ondansetron 4 mg disintegrating 4 mg PO Q6H 10/10/24 11/27/24 tablet pantoprazole 40 mg tablet,delayed 40 mg PO BID 11/27/24 11/27/24 release Previous Rx's Medication Instructions Recorded insulin glargine 100 unit/mL 10 unit (0.1 mL) SUBCUT DAILY #10 09/25/24 subcutaneous solution (Lantus mL U-100 Insulin) lorazepam 0.5 mg tablet 0.5 mg PO DAILY PRN anxiety #1 tab 09/25/24 Allergies Allergy/AdvReac Type Severity Reaction Status Date / Time No Known Allergies Allergy Verified 04/25/24 10:24 Review of Systems General: Reports: ROS unobtainable due to medical condition [facility] ED PFSH: Medical History Below knee amputation Type 2 diabetes mellitus Constipation Increased anion gap metabolic acidosis Hyperglycemia Necrotizing fasciitis Necrotizing soft tissue infection Gas gangrene Necrotizing fasciitis Cellulitis of foot, right Weakness Leukocytosis Hyponatremia Lymphadenopathy of head and neck region Skin lesion of face Lesion of mouth Necrotic wound of left hand Squamous cell carcinoma of oral cavity ? Hypertension Family History Father Cancer lung cancer Mother CAD (coronary artery disease) Social History Smoking and tobacco/nicotine status: unknown if used tobacco/nicotine Physical Exam HENMT: COMMON NORMALS: normocephalic, atraumatic and hearing grossly normal bilaterally HEAD & SCALP: normocephalic and atraumatic Resp: COMMON NORMALS: normal respiratory effort, No retractions, No use of accessory muscles and clear to auscultation bilaterally AUSCULTATION: clear to auscultation bilaterally Cardio: COMMON NORMALS: regular rate, regular rhythm and No murmurs present (Cardio) RATE: regular rate RHYTHM: regular rhythm GI: COMMON NORMALS: Soft to palpation and No hepatosplenomegaly present AUSCULTATION: Yes normoactive bowel sounds PALPATION: Yes Soft to palpation, No Tenderness to palpation present (GI), No Guarding due to palpation present (GI) and Yes No hepatosplenomegaly present Extremity: COMMON NORMALS: normal to inspection, capillary refill normal, no clubbing, cyanosis or edema, no calf tenderness and no pedal edema Skin: COMMON NORMALS: no rashes or lesions noted GENERAL SKIN EXAM: no rashes or lesions noted Procedures Feeding Tube Replacement Type of Tube: gastrostomy Insertion Site Prior to Procedure: clean Tube Used for Reinsertion: other (PEG tube) [place] Tube Size (F): 13 Balloon size (mL): 5 Verification of Placement: auscultation and gastrografin injection Tube Secured by: attachment device Patient Tolerated Procedure: well Complications: local bleeding Course Vital Signs: Vital signs: Vital Signs Temperature 98.3 F 11/27/24 11:47 Pulse Rate 96 11/27/24 14:05 Respiratory Rate 16 11/27/24 14:05 Blood Pressure 130/69 11/27/24 14:05 Pulse Oximetry 99 11/27/24 14:05 Oxygen Delivery Me thod Room Air 11/27/24 11:47 MDM - General Adult Medical Decision Making PEG tube replaced without difficulty confirmed placement with injection of Gastrografin. Will discharge patient home follow-up as needed. Medical Records I reviewed the patient's medical records. Lab Data I reviewed the patient's lab results. Radiology Impressions Abdomen X-Ray 11/27/24 12:21 IMPRESSION: PEG tube with contrast injection into the stomach appears appropriate in position. All radiology interpretation(s) finalized by discharge Discharge Plan Discharge Patient Disposition: Home Clinical Impression: PEG tube malfunction Condition: Stable Prescriptions: No Action insulin aspart U-100 [Novolog FlexPen U-100 Insulin] 100 unit/mL (3 mL) insulin pen See Rx Instructions .ROUTE .COMPLEX Rx Instructions: ;Inject, subcut, 3 times daily, after meals, based on sliding scale provided losartan 25 mg tablet 25 mg PO DAILY ondansetron 4 mg tablet,disintegrating 4 mg PO Q6H aspirin 81 mg Tablet,Delayed Release (Dr/Ec) 81 mg PO DAILY atorvastatin 80 mg tablet 80 mg PO DAILY metformin 1,000 mg tablet 1,000 mg PO BID gabapentin 300 mg capsule 300 mg PO TID sertraline 50 mg tablet 50 mg PO DAILY metoprolol tartrate 25 mg tablet 25 mg PO DAILY dapagliflozin propanediol [Farxiga] 10 mg tablet 10 mg PO DAILY insulin glargine [Lantus U-100 Insulin] 100 unit/mL Solution 10 unit SUBCUT DAILY Qty: 10 6RF lorazepam 0.5 mg tablet 0.5 mg PO DAILY PRN (Reason: anxiety) Qty: 1 0RF pantoprazole 40 mg tablet,delayed release (DR/EC) 40 mg PO BID Discharge Orders: Discharge ED (Routine); Ordered 11/27/24 Ordered By: Cheo Do Referrals: Shannon Calle FNP [Primary Care Provider] - Patient Instructions: Opioid Safety, Pain Management Activity Restrictions/Additional Instructions: Thank you for choosing [facility] for your healthcare needs today. It is very important that you follow up as instructed or that you return to the Emergency Department should you have concerns or if your condition changes or worsens in any way. You are seen in the emergency room after displacing your PEG tube. The PEG tube was replaced and confirmed with x-ray to be in proper position. Coding Level of Care Code ED Presentation Manager for Liseth Magallon
[2024-11-27 14:05] VITALS: BP 130/69; PULSE 96; RESP 16; O2SAT 99
[2024-11-27 14:41] VITALS: BP 135/65; PULSE 98; RESP 16; O2SAT 95
== END 2024-11-27 15:26 | disposition home or self-care (01) ==
PROVIDERS: Emergency Provider Family Medicine; PCP Nurse Practitioner Family
DX: K94.23 Gastrostomy malfunction (principal); Z79.82 Long term (current) use of aspirin; Z79.84 Long term (current) use of oral hypoglycemic drugs; Z79.4 Long term (current) use of insulin; E11.9 Type 2 diabetes mellitus without complications; I10 Essential (primary) hypertension; Z85.819 Personal history of malignant neoplasm of unspecified site of lip, oral cavity, and pharynx
CPT/HCPCS: 43762; 74018; 99283; B4087; Q9963